=== PATIENT | female | born 1955 | race Caucasian/White ===

== ENCOUNTER 2020-07-15 17:43 | Inpatient (IN) | payer MEDICARE, SELFPAY ==
[2020-07-15] VITALS (8 sets, daily range): BP systolic 112–154; BP diastolic 68–89; PULSE 62–97; RESP 16–23; TEMP 36–36.4; O2SAT 92–100
--- NOTE | ~2020-07-15 | XR_ITS ---
EXAMINATION: XR chest 2V DATE: 07/15/2020 19:07 INDICATION: Chest pain radiating to the back and neck TECHNIQUE: PA and lateral views of the chest were obtained. COMPARISON: Chest radiograph dated 08/28/[address] dated 07/02/2019 FINDINGS: The lungs remain clear with no focal airspace opacities, pulmonary edema, pleural effusion or pneumot horax. The cardiomediastinal silhouette is normal. Mild thoracic kyphosis with mild anterior wedging of a. Mid thoracic vertebral bodies and severe thoracic spondylosis. IMPRESSION: 1. No acute cardiopulmonary disease. Reviewed, dictated and finalized at location . [facility] CLINICIAN
--- NOTE | 2020-07-15 17:49 | ECG_ITS ---
Measurements Intervals [place] Rate: 95 P: 31 MS: 182 QRS: 72 QRSD: 97 T: -5 QT: 360 QTc: 455 Interpretive Statements SINUS RHYTHM BORDERLINE T WAVE ABNORMALITY- INFERIOR [place] BASELINE ARTIFACT- I, II, III, AVR, AVL, AVF BORDERLINE ECG Electronically Signed On 07-16-2020 9:55:44 [employer] by Bib Parmar D.O.
[2020-07-15 18:10] LABS: Basophils Absolute Auto 0.1 K/mm3 (0.0-0.1); Basophils Percent Auto 0.8 % (0.2-1.2); Eosinophils Absolute Auto 0.1 K/mm3 (0-0.3); Eosinophils Percent Auto 0.8 % (0-4.4); Immature Granulocyte Absolute 0.05 K/mm3 (0.00-0.031); Immature Granulocyte Percent A 0.4 % (0-0.5); Lymphocytes Absolute Auto 2.96 K/mm3 (0.9-3.2); Lymphocytes Percent Auto 22.3 % (18.3-44.2); Mean Corpuscular HGB Conc 32.5 g/dl (32-36); Mean Corpuscular Hemoglobin 22.4 pg (26-34); Mean Platelet Volume 10.7 fl (7.4-10.4); Monocytes Absolute Auto 0.9 K/mm3 (0.1-0.6); Neutrophils Absolute Auto 9.1 K/mm3 (1.3-6.7); Neutrophils Percent Auto 68.7 % (45.5-73.1); Platelet Count Result 336 k/mm3 (150-375); Red Cell Distribution Width 14.9 % (11.5-14.5); White Blood Count 13.3 K/mm3 (4.5-10.0)
[2020-07-15 18:22] LABS: INR 0.9; Partial Thromboplastin Time 25.8 SECONDS (22.3-36.8); Prothrombin Time 12.8 Seconds (11.1-14.7)
[2020-07-15 18:24] LABS: Anion Gap 12 mmol/L (8-16); Blood Urea Nitrogen 19 mg/dL (7-17); Calcium 9.8 mg/dL (8.4-10.2); Carbon Dioxide 25 mmol/L (22-30); Chloride 101 mmol/L (98-107); Estimated CRCL calculation 72 ml/min; Estimated Glomerular Filt Rate > 60; Glucose 183 mg/dL (65-105); Potassium 3.7 mmol/L (3.4-5.0); Sodium 138 mmol/L (137-145)
[2020-07-15] MEDS: ASPIRIN 81 MG CHEWABLE TABLET 324 MG PO (18:45)
--- NOTE | 2020-07-15 18:46 | ECG_ITS ---
Measurements Intervals [place] Rate: 85 P: 12 ND: 156 QRS: 38 QRSD: 97 T: 10 QT: 356 QTc: 426 Interpretive Statements SINUS RHYTHM BORDERLINE T WAVE ABNORMALITY- INFERIOR LEADS BASELINE WANDER- V4-V5 BORDERLINE ECG Electronically Signed On 07-16-2020 9:56:21 [employer] by Bib Parmar D.O.
[2020-07-15 18:49] LABS: Troponin I 0.628 ng/mL (0.000-0.034)
--- NOTE | 2020-07-15 18:58 | ED.CHESTPAIN ---
HPI - Chest Pain General Chief Complaint: Chest Pain <Lata Solorzano PA-C - Last Filed: 07/15/20 19:08> Stated Complaint: pleurisy <Lata Solorzano PA-C - Last Filed: 07/15/20 19:08> Time Seen by Provider: 07/15/20 18:23 <Lata Solorzano PA-C - Last Filed: 07/15/20 19:08> Source: patient <MARIA DEL CARMEN Gipson Last Filed: 07/15/20 19:08> Mode of arrival: ambulatory <MARIA DEL CARMEN Gipson Last Filed: 07/15/20 19:08> Limitations: no limitations <MARIA DEL CARMEN Gipson Last Filed: 07/15/20 19:08> History of Present Illness HPI narrative: Patient presents with chief complaint of pains that move around her rib cage over the past week. Patient states that she thought she had pleurisy again because she had it over a month ago after doing lots of crying with the of her cat. She reports the pains normally last for a few minutes. She does deep breathing or takes an Aleve and it resolves. Patient states that she has fibromyalgia so she also thought she was possibly developing more pain points as the pain was around her rib cage in the front on the left and right shoulder, lower ribs, posterior aspect of her neck. Patient states she had an episode this afternoon where she was doing yard work where she began to have the pain in her right shoulder shoot across to her left shoulder, she became diaphoretic and felt momentarily short of breath. She reports that she came into the house and turned on the fan and lay down on the couch and when she was able to visit she got up and got an Aleve and laid in the bed and her symptoms resolved. Patient states that she felt better and was able to drive herself to the ER for evaluation. She states she doesn't currently have pain, SOB, or diaphoresis. <MARIA DEL CARMEN Gipson Last Filed: 07/15/20 19:08> Related Data Home Medications: Home Medications Medication Instructions Recorded Confirmed diclofenac sodium 75 mg 75 mg PO ONCE tablet 07/20/20 07/20/20 tablet,delayed release cetirizine [Zyrtec] 5 mg PO DAILY 07/15/20 diphenhydramine HCl [Benadryl] 25 mg PO HS 07/15/20 triamcinolone acetonide [Nasacort] 1 spray INTRANASAL DAILY 07/15/20 <Lata Solorzano PA-C - Last Filed: 07/15/20 19:08> Allergies/Adverse Reactions: Allergies Allergy/AdvReac Type Severity Reaction Status Date / Time haloperidol Allergy Mild EYES QUIT Verified 07/15/20 18:24 WORKING erythromycin base Allergy Unknown Unknown Verified 07/15/20 18:24 Penicillins Allergy Unknown Rash Verified 07/15/20 18:24 <Lata Solorzano PA-C - Last Filed: 07/15/20 19:08> Review of Systems Review of Systems: Narrative: CONSTITUTIONAL: Denies fever, chills, or sweats. EYES: Denies visual changes, redness, or discharge. ENT: Denies rhinorrhea, congestion, sore throat, or otalgia. CARDIOVASCULAR: Reports intermittent radiating pain around her torso Denies palpitations, or edema. RESPIRATORY: Denies cough or dyspnea. GASTROINTESTINAL: Denies abdominal pain, nausea, vomiting, or diarrhea. GENITOURINARY: Denies dysuria or hematuria. SKIN: Denies rash or itching. MUSCULOSKELETAL: Denies back pain, myalgia, or joint pain NEUROLOGIC: Denies headache, numbness, dizziness, or weakness. PSYCHIATRIC: Denies anxiety or depression. <Lata Solorzano PA-C - Last Filed: 07/15/20 19:08> [facility] Past Medical History Medical History: Medical History (Updated 03/14/20 @ 17:12 by Valeria Ortiz, MARIA DEL CARMEN) Beta thalassemia Onychomycosis <Lata Solorzano PA-C - Last Filed: 07/15/20 19:08> Family History Family History: Family History (Updated 10/09/16 @ 12:39 by DOCTOR UNKNOWN) Mother Hypertension Family history of diabetes mellitus in first degree relative Family history of malignant neoplasm of breast in first degree relative Diabetes mellitus Family history of coronary artery disease Father Family history of lung cancer <Lata Solorzano PA-C - Last Filed:
[2020-07-15] MEDS: METOPROLOL TARTRATE 50 MG TAB PO (19:54)
[2020-07-15] MEDS: NITROGLYCERIN OINTMENT 1 INCH DOSE TRANSDERM (20:05)
[2020-07-15] MEDS: ENOXAPARIN 100 MG/ML SYRINGE 85 MG SUB-Q (20:06)
--- NOTE | 2020-07-15 21:03 | ECG_ITS ---
Measurements Intervals [place] Rate: 65 P: 56 HI: 175 QRS: 44 QRSD: 89 T: 23 QT: 397 QTc: 414 Interpretive Statements SINUS RHYTHM DELAYED PRECORDIAL R/S TRANSITION LOW QRS VOLTAGE IN PRECORDIAL LEADS BORDERLINE T WAVE ABNORMALITY- ANTERIOR LEADS BORDERLINE ECG Electronically Signed On 07-16-2020 10:01:44 [employer] by Bib Parmar D.O.
--- NOTE | 2020-07-15 21:04 | PM.IMHP ---
H&P: HPI History of Present Illness Date/Time: 07/15/20 21:04 Chief complaint: elevated troponin Narrative: This is an obese 65 year old smoker who is known to have HTN, hyperlipidemia, and fibromyalgia who has been under a great deal of stress recently and presented to the hospital with a complaint of worsening chest pain today. She has been experiencing intermittent chest pain over the past week. She has been noticing that her chest pain is mostly exertional in nature and today she experienced 20 minutes of severe midsternal chest pain that started while she was doing yard work. Associated symptoms included diaphoresis. She denies any nausea, dizziness, or shortness of breath. She does relate that her chest pain did start shortly after she smoked a cigarrette today. She has no previous history of coronary artery disease and has not had her cholesterol checked in over 6 months. On my encounter with the patient tonight she seems depressed especially since her cat recently but has no significant symptoms. She denies any chest pain at this time. She also denies any fevers, cough, chills, headache, nausea, vomiting, abdominal pain, dysuria, hematuria, diarrhea, rectal bleeding, or LE swelling/pain. Initial troponin was elevated at 0.628. Initial EKG showed minimal ST segment depression in the inferior leads although second EKG was unremarkable. Cardiology, Dr. Hugo has been consulted and has asked that the patient be anticoagulated and treated with a beta zohaib. No other complaints. Review of Systems Review of Systems: All systems reviewed & are unremarkable except as noted in HPI and below PMFSH Past Medical History Medical History Beta thalassemia Onychomycosis Surgical History Surgical History (Updated 07/16/20 @ 19:18 by Suresh Rose MD) History of section, classical Family History Family History Mother Diabetes mellitus Family history of diabetes mellitus in first degree relative Family history of malignant neoplasm of breast in first degree relative Family history of coronary artery disease Hypertension Acute myocardial infarction Cerebrovascular accident Congestive heart failure Father Family history of lung cancer Social History Social History Smoking packs per day: 0.75 Smoking cigarettes per day: 15.0 Years smoked: 40 Smoking pack-years: 30.00 Smoking status: Current every day smoker Tobacco type: cigarettes Smoking end date: 08/26/08 Alcohol intake: current Drinks per week: 8 Substance use: never Substance use type: does not use Gender identity (if verbalized by the patient): Female Spiritual care concerns: No Meds Home Medications and Allergies Home Medications Medication Instructions Recorded Confirmed Type amlodipine 5 mg tablet 5 mg PO DAILY #90 tablet 12/28/19 07/15/20 Rx diclofenac sodium 75 mg 75 mg PO HS tablet 03/14/20 07/15/20 History tablet,delayed release fenofibrate 160 mg tablet 160 mg PO DAILY #90 tablet 03/21/20 07/15/20 Rx benazepril 20 mg tablet 20 mg PO DAILY #90 tablet 05/16/20 07/15/20 Rx chlorthalidone 25 mg tablet 12.5 mg PO DAILY #45 tablet 06/06/20 07/15/20 Rx budesonide-formoterol [Symbicort] 2 puff INHALATION BID 07/15/20 07/16/20 History cetirizine [Zyrtec] 10 mg PO HS 07/15/20 07/15/20 History cyclobenzaprine 10 mg PO TID PRN 07/15/20 07/15/20 History diphenhydramine HCl [Benadryl] 25 mg PO HS 07/15/20 07/15/20 History duloxetine 60 mg PO HS 07/15/20 07/15/20 History duloxetine See Rx Instructions .ROUTE .COMPLEX 07/15/20 07/15/20 History montelukast 10 mg PO HS 07/15/20 07/15/20 History simvastatin 5 mg PO HS 07/15/20 07/15/20 History trazodone 50 mg PO HS 07/15/20 07/15/20 History triamcinolone acetonide [Nasacort] 1 spray INTRANASAL DAILY 07/15/20
--- NOTE | 2020-07-15 23:39 | PC.NURSE ---
This patient, Karen Avalos, was admitted to IMU Room 201-01. Patient/family oriented to hospital policies and general routines including ID bracelet, bed and alarms, visiting hours, pain management, procedures, bathroom and other care routines, personal items, smoking policy, room service/diet, and visiting hours. Patientencouraged to report perceived risks to care and to ask questions if they do not understand what they are told or what they should do.
[2020-07-16] VITALS (17 sets, daily range): BP systolic 96–148; BP diastolic 48–67; PULSE 56–201; RESP 14–18; TEMP 36.1–37.1; O2SAT 92–96; BMI 29.9
[2020-07-16] MEDS: DULoxetine HCL 60 MG CAPSULE.DR PO ×2 (00:31→21:12)
[2020-07-16] MEDS: SIMVASTATIN 5 MG TABLET PO ×2 (00:31→21:13)
[2020-07-16] MEDS: MONTELUKAST SODIUM 10 MG TABLET PO ×2 (00:31→21:12)
[2020-07-16 00:38] LABS: Hemoglobin A1C 5.3 % (<5.7)
[2020-07-16] MEDS: NITROGLYCERIN OINTMENT 1 INCH DOSE TRANSDERM ×4 (01:55→21:13)
[2020-07-16 05:22] LABS: Basophils Absolute Auto 0.1 K/mm3 (0.0-0.1); Basophils Percent Auto 0.7 % (0.2-1.2); Eosinophils Absolute Auto 0.2 K/mm3 (0-0.3); Eosinophils Percent Auto 1.5 % (0-4.4); Hemoglobin 11.7 g/dL (12.0-15.0); Immature Granulocyte Absolute 0.03 K/mm3 (0.00-0.031); Immature Granulocyte Percent A 0.3 % (0-0.5); Lymphocytes Absolute Auto 3.12 K/mm3 (0.9-3.2); Mean Corpuscular HGB Conc 32.5 g/dl (32-36); Mean Corpuscular Hemoglobin 22.2 pg (26-34); Mean Corpuscular Volume 68.2 fl (80-100); Mean Platelet Volume 10.6 fl (7.4-10.4); Monocytes Absolute Auto 1.1 K/mm3 (0.1-0.6); Monocytes Percent Auto 11.1 % (2.6-8.5); Neutrophils Absolute Auto 5.6 K/mm3 (1.3-6.7); Neutrophils Percent Auto 55.4 % (45.5-73.1); Platelet Count Result 300 k/mm3 (150-375); Red Blood Count 5.28 M/mm3 (4.2-5.4); Red Cell Distribution Width 14.3 % (11.5-14.5); White Blood Count 10.1 K/mm3 (4.5-10.0)
[2020-07-16 05:46] LABS: Anion Gap 5 mmol/L (8-16); Blood Urea Nitrogen 21 mg/dL (7-17); Calcium 9.1 mg/dL (8.4-10.2); Carbon Dioxide 29 mmol/L (22-30); Chloride 105 mmol/L (98-107); Cholesterol 203 mg/dL (0-200); Estimated CRCL calculation 71 ml/min; Estimated Glomerular Filt Rate > 60; Glucose 104 mg/dL (65-105); HDL Direct 37 mg/dL; Magnesium 2.1 mg/dL (1.6-2.3); Potassium 3.9 mmol/L (3.4-5.0); Sodium 139 mmol/L (137-145); Triglycerides 423 mg/dL (<150)
[2020-07-16 05:57] LABS: LDL Cholesterol Direct 119 mg/dL
--- NOTE | 2020-07-16 10:18 | PM.CNCAR ---
Assessment and Plan Additional Plan 65-year-old white female with a background of hypertension dyslipidemia and smoking presents with acute coronary syndrome. She has been rendered asymptomatic with simple medical treatment. She does require a coronary angiogram and is agreeable. I of course told the patient that obviously this is not an emergency at this moment and will therefore probably occur on Saturday unless she destabilize is between now and then. I will have further recommendations obviously after she undergoes angiography. Thank you for this consultation Mookie Hugo MD [facility] History of Present Illness History of Present Illness Consult date/time: 07/16/20 10:18 Consult reason: chest pain Reason For Visit: elevated troponin Narrative: This is a 65-year-old woman without previous cardiac history that I am seeing at the request of the hospitalist presenting with a acute coronary syndrome. The patient is not previously known to have any cardiac problems but has been having intermittent episodes of chest pain for about 2 weeks. She says the symptoms have not been severe but have been mild episodes of upper substernal to interscapular back pain radiating into the shoulders that seem to occur off and on in a rather unpredictable fashion. She has not noticed this to be related to physical exertion or for other sorts of physical activity body position or meals. She does not notice any associated shortness of breath diaphoresis nausea or vomiting. She called her physician yesterday afternoon to report these symptoms and was advised to come to the emergency room to be evaluated. She came to the ED yesterday evening her electrocardiogram looks benign but her troponin level was slightly elevated in the ED and at that point I was contacted. I advised them to treat her with aspirin, beta-blockers, statin, topical nitrates and systemic anticoagulation. She was asymptomatic at that time and has remained asymptomatic after being admitted to the IMU. I in that setting she is being seen in consultation. Her troponin levels have risen moderate lead to a level of 4.7. Her electrocardiogram remains unremarkable. In this setting I am seeing the patient in consultation. I explained to the patient that there is significant evidence of an acute coronary syndrome and described the nature of coronary artery disease despite the fact that she has hypertension dyslipidemia and cigarette smoking she said she was shocked to hear this news. Because of this I recommended arranging for a coronary angiogram. Of course since she is asymptomatic and stable this will likely occur on Saturday. The patient was then asking if she can go home and take care of personal family matters and attend to the needs of her cats and returned to the hospital as an outpatient for an angiogram. I described to her the reasons that that is a bad idea. Review of Systems Constitutional: Constitutional: Reports no additional constitutional complaints Eyes: Eyes: Reports no additional eye complaints ENT: Reports system reviewed and no additional complaints, except as documented Cardiovascular: Cardiovascular: Reports as per HPI Respiratory: Respiratory: Reports no additional respiratory complaints Gastrointestinal: Gastrointestinal: Reports no additional gastrointestinal complaints Musculoskeletal: Comments: Diffuse body aches related to fibromyalgia Integumentary/Breasts: Skin/Breast: Reports system reviewed and no additional complaints, except as docu Neurologic: Reports system reviewed and no additional complaints, except as documented Psychiatric: Psychiatric: Reports depression Endocrine: Endocrine: Reports no additional endocrine complaints Hematologic/Lymphatic: Hematologic/Lymphatic: Reports no additional hematologic/lymphatic complaints [facility] Past Medical History Medical History Beta thalassemia On
[2020-07-16] MEDS: FENOFIBRATE 160 MG TABLET PO (10:24)
[2020-07-16] MEDS: ASPIRIN 81 MG ENTERIC TABLET PO (10:24)
[2020-07-16] MEDS: FLUTICASONE PROPIONATE 0.05% NA SPR 16 GM BTL (*BKC) 2 SPRAY NASAL (10:25)
[2020-07-16] MEDS: lisinopriL 20 MG TABLET PO (10:25)
[2020-07-16] MEDS: ENOXAPARIN 100 MG/ML SYRINGE 85 MG SUB-Q ×2 (10:25→21:13)
[2020-07-16] MEDS: CHLORTHALIDONE 25 MG TABLET 12.5 MG PO (10:26)
[2020-07-16] MEDS: amLODIPine BESYLATE 5 MG TABLET PO (10:26)
[2020-07-16] MEDS: LORATADINE 10 MG TABLET PO (10:27)
[2020-07-16] MEDS: METOPROLOL SUCCINATE EXT REL 50 MG TABCR PO (10:30)
--- NOTE | 2020-07-16 14:03 | PM.IMPN ---
Progress Note: A&P Assessment and Plan (1) Elevated troponin: Code(s): R77.8 - Other specified abnormalities of plasma proteins Status: Acute Assessment and Plan: Stable Cardiology consulted Appreciate Cardiology note. (2) Chest pain: Qualifiers: Chest pain type: unspecified Qualified Code(s): R07.9 - Chest pain, unspecified Code(s): R07.9 - Chest pain, unspecified Status: Acute Assessment and Plan: Resolved. (3) Beta thalassemia: Code(s): D56.1 - Beta thalassemia Status: Acute Assessment and Plan: Stable continue to monitor. (4) Chronic obstructive pulmonary disease: Code(s): J44.9 - Chronic obstructive pulmonary disease, unspecified Status: Acute Assessment and Plan: Stable continue home meds. (5) Essential hypertension: Code(s): I10 - Essential (primary) hypertension Status: Chronic Assessment and Plan: Stable Continue home meds (6) Fibromyalgia: Code(s): M79.7 - Fibromyalgia Status: Chronic Assessment and Plan: Continue home meds Stable. (7) Major depression, recurrent, chronic: Code(s): F33.9 - Major depressive disorder, recurrent, unspecified Status: Acute Assessment and Plan: Stable continue home meds Continue to monitor (8) Tobacco dependence: Code(s): F17.200 - Nicotine dependence, unspecified, uncomplicated Status: Acute Assessment and Plan: Nicotine patch Subjective Date/time seen: 07/16/20 14:03 I feel fine. Review of Systems Review of Systems: Narrative: chest pain with activity. Constitutional: Comments: no fevers, no chills, no rigors. Eyes: Comments: no vision changes. ENT: Comments: no ear pain, no throat pain, no nasal discharge or congestion. Cardiovascular: Comments: chest pain with activity. Respiratory: Comments: no sob, no cough, no sputum production Gastrointestinal: Comments: no n/v/abdominal pain. Musculoskeletal: Comments: pain on back, shoulders and bony prominences mainly trunk. Integumentary/Breasts: Comments: no rashes. Neurologic: Comments: no sensory motor deficit. Hematologic/Lymphatic: Comments: no LAP. Exam Narrative: Exam Narrative: Lying in bed. Const: General: cooperative, comfortable and well developed Nutritional Appearance: average body habitus Orientation/consciousness: patient oriented x3 Limitations: no limitations HENMT: Head: normal to inspection and normocephalic Ears: hearing grossly normal bilaterally General nose exam: Normal external nose present Eyes: General: appearance normal, both eyes and all related structures Pupils: Equal, round and reactive pupils present EOM: EOMs intact bilaterally Neck: Neck: full ROM, no lymphadenopathy and supple Resp: Effort & Inspection: normal respiratory effort Auscultation: clear to auscultation bilaterally Cardio: Jugular venous distension: no JVD Rate: regular rate Rhythm: regular rhythm GI: Inspection: normal to inspection GI Palp: Yes Soft to palpation and Yes No hepatosplenomegaly present Skin: General skin exam: normal color Wounds: no wounds Neuro: General: patient oriented x3 Cranial nerves: Yes CN's II-XII intact bilaterally and Yes Bilaterally intact EOM present Cognition (Neuro): normal cognition Speech: normal speech Gait exam (Neuro): Normal gait present Motor exam (neuro): 5/5 motor strength present throughout Sensory Exam: normal sensation Objective Data Vital Signs Vital Signs: Vital Signs - 24 hr 07/15/20 17:46 07/15/20 18:22 07/15/20 18:25 Temperature 97.6 F Pulse Rate 94 95 93 Respiratory Rate 16 23 H Blood Pressure 153/70 H 154/89 H Pulse Oximetry 98 98 07/15/20 22:02 07/15/20 22:19 07/15/20 22:21 Temperature 96.9 F L Pulse Rate 62 64 63 Respiratory Rate 16 16 Blood Pressure 124/72 Pulse Oximetry 98 92 07/15/20 22:23 07/15/20 23:41 07/16/20 00:00 Tem
[2020-07-16] MEDS: ACETAMINOPHEN 325 MG TABLET 650 MG PO (17:10)
[2020-07-16] MEDS: DICLOFENAC SOD 75 MG TABLET.EC PO (21:12)
[2020-07-17] VITALS (16 sets, daily range): BP systolic 108–126; BP diastolic 63–76; PULSE 59–90; RESP 16–20; TEMP 36.4–37.1; O2SAT 95–98
[2020-07-17] MEDS: NITROGLYCERIN OINTMENT 1 INCH DOSE TRANSDERM ×4 (01:59→20:17)
--- NOTE | 2020-07-17 03:00 | PC.NURSE ---
Pt called RN at approximately 0250 this morning stating she had chest pain after getting up to bathroom. Pain only lasted a minute or two, upper chest 7/10 with no radiation and brief shortness of breath. Pain resolved with rest and no other intervention. Vitals stable. Will continue to monitor.
[2020-07-17] MEDS: METOPROLOL SUCCINATE EXT REL 50 MG TABCR PO (08:56)
[2020-07-17] MEDS: FLUTICASONE PROPIONATE 0.05% NA SPR 16 GM BTL (*BKC) 2 SPRAY NASAL (08:58)
[2020-07-17] MEDS: FENOFIBRATE 160 MG TABLET PO (08:59)
[2020-07-17] MEDS: CHLORTHALIDONE 25 MG TABLET 12.5 MG PO (08:59)
[2020-07-17] MEDS: ENOXAPARIN 100 MG/ML SYRINGE 85 MG SUB-Q ×2 (08:59→20:20)
[2020-07-17] MEDS: ASPIRIN 81 MG ENTERIC TABLET PO (09:00)
[2020-07-17] MEDS: amLODIPine BESYLATE 5 MG TABLET PO (09:00)
--- NOTE | 2020-07-17 10:17 | PM.PNCARD ---
Progress Note: A&P Additional Plan 65-year-old female with: Intermittent chest pain syndrome for 1-2 weeks prior to coming in the hospital, modest troponin rise resulting in the recommendation to proceed with angiogram. She was been stabilized with aspirin, anticoagulation, beta-blockers topical nitrates and statin. Will plan to proceed with coronary angiography tomorrow morning. Further recommendations will be forthcoming after those results are reviewed Mookie Hugo MD [facility] Subjective Date/time seen: Date of service: 07/17/20 10:17 Interval history: Follow-up visit in this 65-year-old woman with apparent diagnosis of acute coronary syndrome and risk factors of hypertension dyslipidemia and smoking. Feels well this morning did have an episode of mild chest pain last night when she was up to the bathroom Discussed again need for proceeding with coronary angiography tomorrow morning she understands the procedure and is agreeable Exam Const: General: comfortable and no acute distress Other: Overweight 65-year-old female a comfortable cooperative in no distress HENMT: Mouth: Yes moist mucous membranes Eyes: Sclera: sclerae normal Pupils: Equal, round and reactive pupils present Neck: Neck: supple and no JVD Thyroid: thyroid normal Other: Carotid pulses are intact bilaterally and are without any bruits Resp: Effort & Inspection: normal respiratory effort Auscultation: clear to auscultation bilaterally Cardio: Rate: regular rate Rhythm: regular rhythm Other: No murmur no gallop no rub GI: GI Palp: Yes Soft to palpation Auscultation: normal bowel sounds Skin: General skin exam: normal color Neuro: Cognition (Neuro): normal cognition Extrem: General: normal to inspection Objective Data Vital Signs Vital Signs: Vital Signs - 24 hr 07/16/20 10:30 07/16/20 12:00 07/16/20 14:00 Temperature 36.9 C Pulse Rate 201 H 86 89 Respiratory Rate 18 Blood Pressure 148/48 H Pulse Oximetry 94 07/16/20 16:00 07/16/20 18:00 07/16/20 19:55 Temperature 36.2 C L 37.1 C Pulse Rate 79 89 56 L Respiratory Rate 18 18 Blood Pressure 114/51 L 96/54 L Pulse Oximetry 96 96 07/16/20 20:00 07/16/20 22:00 07/16/20 23:40 Temperature 36.3 C L Pulse Rate 83 59 L 60 Respiratory Rate 18 Blood Pressure 104/55 L Pulse Oximetry 92 07/17/20 00:00 07/17/20 02:00 07/17/20 02:50 Temperature 36.4 C Pulse Rate 62 70 64 Respiratory Rate 16 Blood Pressure 123/66 Pulse Oximetry 98 07/17/20 04:00 07/17/20 06:00 07/17/20 08:00 Temperature 36.8 C 36.9 C Pulse Rate 59 L 59 L 75 Respiratory Rate 16 18 Blood Pressure 108/63 126/76 Pulse Oximetry 97 98 07/17/20 08:56 07/17/20 10:17 Temperature Pulse Rate 84 Respiratory Rate Blood Pressure Pulse Oximetry 96 Intake/Output Intake/Output: Intake & Output 07/14/20 07/15/20 07/16/20 07/17/20 23:59 23:59 23:59 23:59 Intake Total 480 600 Output Total 1000 750 Balance -520 -150 Meds/Results Medications: Active Medications Generic Name Dose Route Start Last Admin Trade Name Freq PRN Reason Stop Dose Admin Acetaminophen 650 mg 07/15/20 21:19 07/16/20 17:10 Acetaminophen 325 Mg Tablet PO 650 mg Q4H PRN Administration Mild Pain (1-3) or Fever Amlodipine Besylate 5 mg 07/16/20 09:00 07/17/20 09:00 Amlodipine Besylate 5 Mg Tablet PO 5 mg DAILY VIKI Administration Aspirin 81 mg 07/16/20 09:00 07/17/20 09:00 Aspirin 81 Mg Enteric Tablet PO 81 mg QAM VIKI Administration Budesonide/Formoterol Fumarate 2 puff 07/16/20 08:00 07/17/20 10:16 Budesonide/Form 160-4.5 Mcg (*Sp) INHALATION 2 puff Q12HRT VIKI Administration Chlorthalidone 12.5 mg 07/16/20 09:00 07/17/20 08:59 Chlorthalidone 25 Mg Tablet PO 12.5 mg DAILY VIKI Administration Cyclobenzaprine HCl 10 mg 07/15/20 23:19 Cyclobenzaprine Hcl 10 Mg Tablet PO TID PRN Muscle Pain Diclofena
[2020-07-17] MEDS: lisinopriL 20 MG TABLET PO (11:20)
[2020-07-17] MEDS: DULoxetine HCL 30 MG CAPSULE.DR PO (12:36)
--- NOTE | 2020-07-17 12:57 | PM.IMPN ---
Progress Note: A&P Assessment and Plan (1) Tobacco dependence: Code(s): F17.200 - Nicotine dependence, unspecified, uncomplicated Status: Acute Assessment and Plan: Nicotine patch on. Continue to monitor (2) Elevated troponin: Code(s): R77.8 - Other specified abnormalities of plasma proteins Status: Acute Assessment and Plan: Going for Left heart cath in am. Telemonitoring. Supportive care Cardiology on board, note appreciated. (3) Chest pain: Qualifiers: Chest pain type: unspecified Qualified Code(s): R07.9 - Chest pain, unspecified Code(s): R07.9 - Chest pain, unspecified Status: Acute Assessment and Plan: Mainly with activity Nitro patch on Continue to monitor. (4) Beta thalassemia: Code(s): D56.1 - Beta thalassemia Status: Acute Assessment and Plan: Stable Continue to monitor (5) Chronic obstructive pulmonary disease: Code(s): J44.9 - Chronic obstructive pulmonary disease, unspecified Status: Acute Assessment and Plan: Stable Continue to monitor Continue home meds (6) Essential hypertension: Code(s): I10 - Essential (primary) hypertension Status: Chronic Assessment and Plan: Stable Continue home meds Continue to monitor (7) Fibromyalgia: Code(s): M79.7 - Fibromyalgia Status: Chronic Assessment and Plan: Continue home meds (8) Major depression, recurrent, chronic: Code(s): F33.9 - Major depressive disorder, recurrent, unspecified Status: Acute Assessment and Plan: Stable Continue home meds. Subjective Date/time seen: 07/17/20 12:57 States that feels well at this time but had an episode of chest pain last night. Review of Systems Review of Systems: Narrative: Had chest pain last night when up to the bathroom. Constitutional: Comments: no fevers, no rigors, no chills. Eyes: Comments: no vision changes. ENT: Comments: no ear ache, no throat pain, no nasal discharge or congestion. Cardiovascular: Comments: chest pain with activity. Respiratory: Comments: no sob, no cough, no sputum production. Gastrointestinal: Comments: no n/v/abdominal pain. Genitourinary: Comments: no pain or burning with urination. Musculoskeletal: Comments: muscle pain on bony protuberance mostly on the trunk, back and shoulders. Integumentary/Breasts: Comments: no rashes. Neurologic: Comments: no sensory motor deficit. Hematologic/Lymphatic: Comments: no LAP. Exam Narrative: Exam Narrative: Sitting in bed. Const: General: cooperative, healthy appearing, comfortable, well developed, alert and awake Nutritional Appearance: average body habitus HENMT: Head: normal to inspection and normocephalic Face and sinus: normal facial exam Eyes: General: appearance normal, both eyes and all related structures Pupils: Equal, round and reactive pupils present EOM: EOMs intact bilaterally Neck: Neck: full ROM, no lymphadenopathy and supple Resp: Effort & Inspection: normal respiratory effort Auscultation: clear to auscultation bilaterally Cardio: Jugular venous distension: no JVD Rate: regular rate Rhythm: regular rhythm GI: Inspection: normal to inspection GI Palp: Yes Soft to palpation and Yes No hepatosplenomegaly present Auscultation: normal bowel sounds Skin: General skin exam: normal color Lesions: no lesions Rashes: no rashes Wounds: no wounds Neuro: General: patient oriented x3 Cranial nerves: Yes CN's II-XII intact bilaterally Extrem: General: no joint enlargement and no pedal edema Objective Data Vital Signs Vital Signs: Vital Signs - 24 hr 07/16/20 14:00 07/16/20 16:00 07/16/20 18:00 Temperature 97.2 F L Pulse Rate 89 79 89 Respiratory Rate 18 Blood Pressure 114/51 L Pulse Oximetry 96 07/16/20 19:55 07/16/20 20:00 07/16/20 22:00 Temperature 98.7 F Pulse Rate 56 L 83 59 L Respiratory Rate 18 B
[2020-07-17] MEDS: LORATADINE 10 MG TABLET PO (20:18)
[2020-07-17] MEDS: MONTELUKAST SODIUM 10 MG TABLET PO (20:18)
[2020-07-17] MEDS: SIMVASTATIN 5 MG TABLET PO (20:19)
[2020-07-17] MEDS: DICLOFENAC SOD 75 MG TABLET.EC PO (20:19)
[2020-07-17] MEDS: DULoxetine HCL 60 MG CAPSULE.DR PO (20:20)
[2020-07-17] MEDS: traZODone HCL 50 MG TABLET PO (23:39)
[2020-07-18] VITALS (38 sets, daily range): BP systolic 116–159; BP diastolic 45–95; PULSE 59–103; RESP 12–25; TEMP 36.1–36.9; O2SAT 94–99
[2020-07-18] MEDS: NITROGLYCERIN OINTMENT 1 INCH DOSE TRANSDERM (02:56)
--- NOTE | 2020-07-18 07:25 | WPDMODSED ---
Moderate Sedation Note-Pt Data Patient Data Diagnosis: acute coronary syndrome hypertension dyslipidemia tobacco abuse Present Complaint: intermittent ischemic chest pain both with without exertion Procedure to be performed/Plan: left heart catheterization, possible PCI Allergies Allergy/AdvReac Type Severity Reaction Status Date / Time haloperidol Allergy Mild EYES QUIT Verified 07/15/20 22:22 WORKING erythromycin base Allergy Unknown Unknown Verified 07/15/20 22:22 Penicillins Allergy Unknown Rash Verified 07/15/20 22:22 Home Medications Medication Instructions Recorded Confirmed Type amlodipine 5 mg tablet 5 mg PO DAILY #90 tablet 12/28/19 07/15/20 Rx diclofenac sodium 75 mg 75 mg PO HS tablet 03/14/20 07/15/20 History tablet,delayed release fenofibrate 160 mg tablet 160 mg PO DAILY #90 tablet 03/21/20 07/15/20 Rx benazepril 20 mg tablet 20 mg PO DAILY #90 tablet 05/16/20 07/15/20 Rx chlorthalidone 25 mg tablet 12.5 mg PO DAILY #45 tablet 06/06/20 07/15/20 Rx budesonide-formoterol [Symbicort] 2 puff INHALATION BID 07/15/20 07/16/20 History cetirizine [Zyrtec] 10 mg PO HS 07/15/20 07/15/20 History cyclobenzaprine 10 mg PO TID PRN 07/15/20 07/15/20 History diphenhydramine HCl [Benadryl] 25 mg PO HS 07/15/20 07/15/20 History duloxetine 60 mg PO HS 07/15/20 07/15/20 History duloxetine See Rx Instructions .ROUTE .COMPLEX 07/15/20 07/15/20 History montelukast 10 mg PO HS 07/15/20 07/15/20 History simvastatin 5 mg PO HS 07/15/20 07/15/20 History trazodone 50 mg PO HS 07/15/20 07/15/20 History triamcinolone acetonide [Nasacort] 1 spray INTRANASAL DAILY 07/15/20 07/15/20 History Current Medications: Active Medications Acetaminophen (Acetaminophen 325 Mg Tablet) 650 mg PO Q4H PRN PRN Reason: Mild Pain (1-3) or Fever Last Admin: 07/16/20 17:10 Dose: 650 mg Documented by: Amlodipine Besylate (Amlodipine Besylate 5 Mg Tablet) 5 mg PO DAILY [facility] Last Admin: 07/17/20 09:00 Dose: 5 mg Documented by: Aspirin (Aspirin 81 Mg Enteric Tablet) [facility] [place] Admin: 07/17/20 09:00 Dose: 81 mg Documented by: Budesonide/Formoterol Fumarate (Budesonide/Form 160-4.5 Mcg (*Sp)) 2 puff INHALATION Q12HRT [facility] Last Admin: 07/17/20 20:52 Dose: 2 puff Documented by: Chlorthalidone (Chlorthalidone 25 Mg Tablet) 12.5 mg PO DAILY [facility] Last Admin: 07/17/20 08:59 Dose: 12.5 mg Documented by: Cyclobenzaprine HCl (Cyclobenzaprine Hcl 10 Mg Tablet) 10 mg PO TID PRN PRN Reason: Muscle Pain Diclofenac Sodium (Diclofenac Sod 75 Mg Tablet.Ec) 75 mg PO [facility] Last Admin: 07/17/20 20:19 Dose: 75 mg Documented by: Diphenhydramine HCl (Diphenhydramine Hcl Cap 25 Mg Capsule) 25 mg PO [facility] Last Admin: 07/17/20 20:19 Dose: Not Given Documented by: Duloxetine HCl (Duloxetine Hcl 60 Mg Capsule.Dr) 60 mg PO [facility] Last Admin: 07/17/20 20:20 Dose: 60 mg Documented by: Duloxetine HCl (Duloxetine Hcl 30 Mg Capsule.Dr) 30 mg PO [facility] Last Admin: 07/17/20 12:36 Dose: 30 mg Documented by: Enoxaparin Sodium (Enoxaparin 100 Mg/Ml Syringe) 85 mg SUB-Q Q12HR [facility] Last Admin: 07/17/20 20:20 Dose: 85 mg Documented by: Fenofibrate (Fenofibrate 160 Mg Tablet) 160 mg PO DAILY [facility] Last Admin: 07/17/20 08:59 Dose: 160 mg Documented by: Fluticasone Propionate (Fluticasone Propionate 0.05% Na Spr 16 Gm Btl (*Bkc)) 2 spray NASAL [facility] Last Admin: 07/17/20 08:58 Dose: 2 spray Documented by: Lisinopril (Lisinopril 20 Mg Tablet) 20 mg PO [facility] Last Admin: 07/17/20 11:20 Dose: 20 mg Documented by: Loratadine (Loratadine 10 Mg Tablet) 10 mg PO [facility] Last Admin: 07/17/20 20:18 Dose: 10 mg Documented by: Metoprolol Succinate (Metoprolol Succinate Ext Rel 50 Mg Tabcr) 50 mg PO [facility] Last Admin: 07/17/20 08:56 Dose: 50 mg Documented by: Montelukast Sodium (Montelukast Sodium 10 Mg Tablet) 10 mg PO [facility] Last Admin: 07/17/20 20:18 Dose: 10 mg Documented by: Nicotine (Nicotine (*Pbkc) 21 Mg Pat
--- NOTE | 2020-07-18 07:30 | PC.NURSE ---
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
--- NOTE | 2020-07-18 08:10 | ECG_ITS ---
Measurements Intervals [place] Rate: 59 P: 67 LA: 170 QRS: 56 QRSD: 101 T: -10 QT: 418 QTc: 416 Interpretive Statements SINUS BRADYCARDIA BORDERLINE T WAVE ABNORMALITY- INFERIOR LEADS BORDERLINE ECG Electronically Signed On 07-18-2020 9:15:49 DIESEL INSTRUCTOR by Bib Parmar D.O.
--- NOTE | 2020-07-18 08:15 | WPDCARDPROC ---
Cardiac Cath Procedure Note Date of procedure:: 07/18/20 Performing physician:: Mookie Hugo MD Indication:: unstable angina Brief clinical history:: this is a 65-year-old woman with a history of hypertension smoking and dyslipidemia who entered the hospital with weekend with intermittent ischemic type chest pain and a small rise in her troponin. In the setting an angiogram has been recommended. Procedure Procedure performed:: Coronary angiography left ventriculography drug-eluting stent to RPL Sedation/Medication given:: fentanyl 50 mg Versed 2 mg case start 733 a.m. case end time 808 sedation provided by Margie Minor RN, trained observer Access site:: right femoral artery Estimated blood loss:: 20-30 cc Procedure note:: patient was brought to the cardiac catheterization lab in the postabsorptive state where the right femoral triangle was prepared and draped usual fashion. Anesthesia was provided with 1% lidocaine infiltrated locally. Using modified Seldinger technique a 5 Syrian sheath was placed into the right femoral artery. Left heart catheterization was then carried out I utilized a 6 Syrian JR4 catheter to inject the right coronary artery and a 6 Syrian FL 3.5 catheter to inject the left coronary artery. The left ventricle was studied and injected using a 5 Syrian angled pigtail catheter. Following this the cineangiograms were reviewed and PCI of the RPL branch of the RCA was recommended and carried out as detailed below. Prior to PCI the patient had the 5 Syrian sheath changed over guidewire for a 6 Syrian and she was systemically anticoagulated with Angiomax. She also received aspirin and 180 mg of Brilinta p.o. prior to the intervention. Following the PCI the sheath was sutured into position the patient was taken to the holding area in stable condition there was no sign of any groin hematoma and no procedural complications were evident. Findings:: Hemodynamics: Central aortic pressure was 143/63 left ventricle 140/0 end-diastolic of 12 there is no systolic gradient on pullback across the aortic valve. Left ventricle: The LV is of normal size all segments contract appropriately the global ejection fraction is visually estimated to be 50-55%. The left main coronary artery is widely patent the LAD is a medium caliber artery extending down to around the apex the LAD and its branches are angiographically free of disease. Circumflex is a small to medium caliber vessel giving rise to the marginal branches and angiographically is free of disease. Right coronary artery is a large caliber vessel dominant to the posterior circulation. The majority of the RCA is angiographically normal there is however a high-grade 95% lesion in the large RPL branch which appears to be the culprit for her symptoms. The lesion does appear to be hazy with some associated thrombus. Intervention: The right coronary was engaged using a 6 Syrian WRP guiding catheter. The artery was wired easily with 0.014 BMW coronary guidewire. The lesion was pre-dilated using a 2.5 x 15 mm emerge PTCA balloon. I then deployed a 3 x 15 mm Orsiro drug-eluting stent with a very good angiographic result at the target lesion there was a visible step-up step-down in the stented area the casing very good strut deployment. There was a filling defect noted in 1 of the distal RPL branches following the PCI which indicates a small piece of thrombus that did embolize distally. There was still SARAHY 3 flow in the entire RPL system however this did not appear to limit flow. This reason the patient will be given an additional bag of Angiomax prior to sheath removal. Conclusion:: 1. Single-vessel coronary artery disease with a high-grade 95-99% stenosis in the large caliber RPL branch of the right coronary artery. 2. Normal left ventricular systolic function 3. successful PCI using the 3.5 x 15 mm Orsiro stent with no residual stenosis or di
--- NOTE | 2020-07-18 08:25 | SUR.PHASEII ---
BEGIN PHASE II RECOVERY. RETURNS TO WIRE INSULATOR 3 S/P LHC W/ PCI TO RCA. AWAKE AND ALERT X 3, DENIES PAIN OR SOB. 6FR SHEATH INTACT R. FEM ARTERY COVERED W/ GUAZE AND TEGADERM DRESSING. NO ACTIVE BLEEDING OR HEMATOMA NOTED. OLD SCANT BLOODY DRAINAGE NOTED IN R. GROIN CREASE. PUNCTURE SITE AREA SOFT, NONTENDER. R. PEDAL PULSE PALP STRONG. ANGIOMAX GTT CONTINUES AT 29.4ML/HR VIA PUMP. IVF'S CONTINUE ORDERED. REVIEWED BEDREST ACTIVITY RESTRICTIONS W/ PT. VOICED UNDERSTANDING. VSS. WILL CONTINUE TO MONITOR.
--- NOTE | 2020-07-18 09:05 | SUR.PHASEII ---
2ND BAG OF ANGIOMAX HUNG ORDERED VIA PUMP AT 29.4ML/HR. NO NEW CHANGES. WILL CONTINUE TO MONITOR.
--- NOTE | 2020-07-18 10:57 | SUR.PHASEII ---
2ND BAG OF ANGIOMAX COMPLETE AT THIS TIME, 1057. NO NEW CHANGES NOTED OTHERWISE. VSS. SHEATH MAY BE PULLED AFTER 1257. PT. UPDATED ON PLAN AND REVIEWED BEDREST ACTIVITY RESTRICTIONS. VOICED UNDERSTANDING.
[2020-07-18] MEDS: SODIUM CHLORIDE 0.9% IV 1,000 ML 125 ML IV CONT (12:00)
--- NOTE | 2020-07-18 12:54 | PM.IMPN ---
Progress Note: A&P Assessment and Plan (1) Tobacco dependence: Code(s): F17.200 - Nicotine dependence, unspecified, uncomplicated Status: Acute Assessment and Plan: Nicotine patch on. (2) Elevated troponin: Code(s): R77.8 - Other specified abnormalities of plasma proteins Status: Acute Assessment and Plan: S/p L heart cath. Doing well Follow Cardiology recs. (3) Chronic obstructive pulmonary disease: Code(s): J44.9 - Chronic obstructive pulmonary disease, unspecified Status: Acute Assessment and Plan: Stable Continue home meds (4) NSTEMI (non-ST elevated myocardial infarction): Code(s): I21.4 - Non-ST elevation (NSTEMI) myocardial infarction Status: Acute Assessment and Plan: S/p R heart cath. Subjective Date/time seen: 07/18/20 12:54 I feel fine. Review of Systems Review of Systems: Narrative: No complains, s/p L heart cath. Musculoskeletal: Comments: R groin access. Exam Narrative: Exam Narrative: lying in bed. Const: General: cooperative, healthy appearing and comfortable Nutritional Appearance: average body habitus Orientation/consciousness: patient oriented x3 HENMT: Head: normal to inspection and normocephalic Ears: hearing grossly normal bilaterally General nose exam: Normal external nose present Face and sinus: normal facial exam Eyes: General: appearance normal, both eyes and all related structures Pupils: Equal, round and reactive pupils present EOM: EOMs intact bilaterally Neck: Neck: normal visual inspection, no lymphadenopathy, supple and no JVD Lymphatic: no lymphadenopathy noted Resp: Effort & Inspection: normal respiratory effort and able to speak in complete sentences Auscultation: clear to auscultation bilaterally Cardio: Rate: regular rate Rhythm: regular rhythm GI: Inspection: normal to inspection GI Palp: Yes Soft to palpation and Yes No hepatosplenomegaly present Skin: General skin exam: normal color Lesions: no lesions Rashes: no rashes Wounds: no wounds (R groin cath access.) Neuro: General: patient oriented x3 Cranial nerves: Yes CN's II-XII intact bilaterally Cognition (Neuro): normal cognition Speech: normal speech Gait exam (Neuro): Normal gait present Motor exam (neuro): 5/5 motor strength present throughout Sensory Exam: normal sensation Extrem: General: full ROM and no pedal edema Objective Data Vital Signs Vital Signs: Vital Signs - 24 hr 07/17/20 14:00 07/17/20 16:00 07/17/20 18:00 Temperature 98.4 F Pulse Rate 74 77 77 Respiratory Rate 18 Blood Pressure 116/72 Pulse Oximetry 95 07/17/20 20:00 07/17/20 20:02 07/17/20 22:00 Temperature 97.7 F Pulse Rate 69 78 90 Respiratory Rate 18 20 Blood Pressure 120/63 Pulse Oximetry 97 98 07/18/20 00:00 07/18/20 02:00 07/18/20 04:00 Temperature 97.3 F L 96.9 F L Pulse Rate 76 71 67 Respiratory Rate 16 16 Blood Pressure 123/63 119/66 Pulse Oximetry 98 97 07/18/20 06:00 07/18/20 07:04 07/18/20 08:30 Temperature 97.1 F L 98.5 F Pulse Rate 69 78 70 Respiratory Rate 16 16 Blood Pressure 145/60 H 131/74 Pulse Oximetry 98 96 07/18/20 08:45 07/18/20 09:00 07/18/20 09:15 Temperature Pulse Rate 63 59 L 59 L Respiratory Rate 16 16 16 Blood Pressure 127/75 128/90 132/71 Pulse Oximetry 94 96 98 07/18/20 09:45 07/18/20 10:15 07/18/20 11:15 Temperature Pulse Rate 66 60 62 Respiratory Rate 16 16 16 Blood Pressure 137/66 132/70 126/87 Pulse Oximetry 97 96 96 Intake/Output Intake/Output: Intake & Output 07/15/20 07/16/20 07/17/20 07/18/20 23:59 23:59 23:59 23:59 Intake Total 480 1510 Output Total 1000 1350 600 Balance -520 160 -600 Meds/Results Medications: Active Medications Generic Name Dose Route Start Last Admin Trade Name Freq PRN Reason Stop Dose Admin Acetaminophen 650 mg 07/15/20 21:19 07/16/20 17:10 Acetaminophen 325 Mg Tablet PO 650 mg
--- NOTE | 2020-07-18 13:23 | SUR.PHASEII ---
MANUAL 6FR SHEATH PULL R. FEM ARTERY PUNCTURE SITE BY SALLY Moreira RN PER PROTOCOL AT THIS TIME. WILL HOLD FIRM, STEADY PRESSURE TO SITE UNTIL HEMOSTASIS ACHIEVED. TOLERATED WELL. WILL CONTINUE TO MONITOR. VSS.
--- NOTE | 2020-07-18 14:03 | SUR.PHASEII ---
HEMOSTASIS ACHIEVED AFTER 40 MINUTES MANUAL PRESSURE HOLD TO R. FEMORAL ARTERY PUNCTURE SITE. DURING INITIAL MANUAL HOLD, SMALL HEMATOMA NOTED MEDIALLY TO PUNCTURE SITE, PRESSED OUT BY CASTRO MOISE RN. AFTER INITIAL 30 MINUTE MANUAL HOLD, SMALL HEMATOMA NOTED LATERALLY TO PUNCTURE SITE; PRESSED OUT BY CASTRO MOISE RN. AREA SOFT, WITHOUT SWELLING OR RIDGES AFTER TOTAL 40 MINUTE PRESSURE HOLD. MILD BRUISING NOTED WHERE SOFT, SMALL HEMATOMAS WERE. PUNCTURE SITE DRESSED W/ STAT SEAL AND TEGADERM DRESSING. EDGES OF BRUISING MARKED. TOLERATED PRESSURE HOLD WELL. VSS. REVIEWED BEDREST ACTIVITY RESTRICTIONS AND 6 HOURS BEDREST W/ PT. VOICED UNDERSTANDING. WILL CONTINUE TO MONITOR CLOSELY.
--- NOTE | 2020-07-18 15:00 | SUR.PHASEII ---
REPORT CALLED TO REAGAN GARCIA IN IMU. PT. TO RETURN TO 201 VIA BED ON TELE MONITOR.
--- NOTE | 2020-07-18 15:20 | SUR.PHASEII ---
END PHASE II RECOVERY. PT. RETURNS TO IMU 201 VIA BED ON TELE MONITOR. IVF'S RUNNING ORDERED. ASSESSED Peter DOBBINS SITE WITH REAGAN GARCIA AND VICTORIA GARCIA. NO NEW CHANGES NOTED.
--- NOTE | 2020-07-18 15:35 | PC.NURSE ---
Patient returned from Senior Qa Tester, site intact and visualized. Report received from JOSE Wild.
[2020-07-18] MEDS: FENOFIBRATE 160 MG TABLET PO (17:06)
[2020-07-18] MEDS: METOPROLOL SUCCINATE EXT REL 50 MG TABCR PO (17:06)
[2020-07-18] MEDS: lisinopriL 20 MG TABLET PO (17:07)
[2020-07-18] MEDS: amLODIPine BESYLATE 5 MG TABLET PO (17:09)
[2020-07-18] MEDS: FLUTICASONE PROPIONATE 0.05% NA SPR 16 GM BTL (*BKC) 2 SPRAY NASAL (17:09)
[2020-07-18] MEDS: CHLORTHALIDONE 25 MG TABLET 12.5 MG PO (17:09)
[2020-07-18] MEDS: NICOTINE (*PBKC) 21 MG PATCH 1 PATCH TRANSDERM (17:09)
[2020-07-18] MEDS: ROSUVASTATIN 10 MG TABLET PO (17:10)
[2020-07-18] MEDS: TICAGRELOR 90 MG TABLET PO (20:29)
[2020-07-18] MEDS: DICLOFENAC SOD 75 MG TABLET.EC PO (20:29)
[2020-07-18] MEDS: traZODone HCL 50 MG TABLET PO (20:29)
[2020-07-18] MEDS: diphenhydrAMINE HCl CAP 25 MG CAPSULE PO (20:29)
[2020-07-18] MEDS: MONTELUKAST SODIUM 10 MG TABLET PO (20:29)
[2020-07-18] MEDS: LORATADINE 10 MG TABLET PO (20:29)
[2020-07-18] MEDS: DULoxetine HCL 60 MG CAPSULE.DR PO (20:29)
[2020-07-19] VITALS (9 sets, daily range): BP systolic 113–127; BP diastolic 45–78; PULSE 63–89; RESP 14–20; TEMP 36.4–36.8; O2SAT 96–99
--- NOTE | 2020-07-19 05:11 | ECG_ITS ---
Measurements Intervals [place] Rate: 76 P: 44 OR: 173 QRS: 51 QRSD: 101 T: -14 QT: 380 QTc: 429 Interpretive Statements SINUS RHYTHM BORDERLINE T WAVE ABNORMALITY- INFERIOR LEADS BORDERLINE ECG Electronically Signed On 07-19-2020 13:29:47 INVESTIGATIONS CHIEF by Bib Parmar D.O.
[2020-07-19] MEDS: FENOFIBRATE 160 MG TABLET PO (09:24)
[2020-07-19] MEDS: FLUTICASONE PROPIONATE 0.05% NA SPR 16 GM BTL (*BKC) 2 SPRAY NASAL (09:24)
[2020-07-19] MEDS: amLODIPine BESYLATE 5 MG TABLET PO (09:26)
[2020-07-19] MEDS: ASPIRIN 81 MG CHEWABLE TABLET PO (09:26)
[2020-07-19] MEDS: CHLORTHALIDONE 25 MG TABLET 12.5 MG PO (09:28)
[2020-07-19] MEDS: DULoxetine HCL 30 MG CAPSULE.DR PO (09:30)
[2020-07-19] MEDS: lisinopriL 20 MG TABLET PO (09:30)
[2020-07-19] MEDS: METOPROLOL SUCCINATE EXT REL 50 MG TABCR PO (09:31)
[2020-07-19] MEDS: TICAGRELOR 90 MG TABLET PO (09:31)
[2020-07-19] MEDS: ROSUVASTATIN 10 MG TABLET PO (09:31)
[2020-07-19] MEDS: NICOTINE (*PBKC) 21 MG PATCH 1 PATCH TRANSDERM (09:32)
--- NOTE | 2020-07-19 10:00 | PC.NURSE ---
RECEIVED TO PYTHON DEVELOPER 3 IMU OVERFLOW TRANSFER FROM IMU 201. REPORT HAS BEEN RECEIVED FROM JOHN GARCIA. A&OX4 ON ARRIVAL. STEADY GAIT. UP IN ROOM. DENIES CP OR SOB. MONITOR SR. R. GROIN W/ DIFFUSE BRUISING ALONG GROIN CREASE/UPPER THIGH. NO BRUIT NOTED TO AREA OF PUNCTURE SITE. STAT SEAL AND TEGADERM DRESSING TO SITE C/D/I. WILL CONTINUE TO MONITOR.
--- NOTE | 2020-07-19 10:46 | PM.PNCARD ---
Progress Note: A&P Assessment and Plan (1) NSTEMI (non-ST elevated myocardial infarction): Code(s): I21.4 - Non-ST elevation (NSTEMI) myocardial infarction Status: Acute Assessment and Plan: Patient is status post PCI/EAMON x1 RPL branch in the setting of non ST elevation AK. Standard post AK/post PCI medical treatment including dual antiplatelet therapy with aspirin and ticagrelor; beta-zohaib, REINALDO-inhibitor and statin. Avoid NSAIDs except aspirin. Smoking cessation counseling was done. Outpatient follow-up with Dr. Hugo. Follow-up information was provided to the patient. She was advised to follow up in 2-3 weeks after discharge. Spoke at length with the patient about importance of medication compliance, especially dual antiplatelet therapy. She verbalized understanding. Subjective Date/time seen: 07/19/20 10:46 Date of service: 07/19/2020 Chief complaint: Bruising in the right groin area Interval history: Patient had bruising in the right groin area, no active bleeding. Denies chest pain or shortness of breath. She is eager to go home. Exam Narrative: Exam Narrative: PHYSICAL EXAMINATION: GENERAL: Alert, oriented, no acute distress MENTAL STATUS: affect appropriate to mood EYES: Extraocular movements intact, no pallor EARS: External ears appear normal, hearing grossly normal NOSE: Normal and patent, no discharge MOUTH: Mucous membranes moist, tongue normal NECK: Supple, no JVD CHEST: Good respiratory effort, clear to auscultation HEART: Normal rate, regular rhythm, normal S1 and S2 ABDOMEN: Soft, nontender NEUROLOGICAL: Alert, oriented, normal speech, no gross motor deficits MUSCULOSKELETAL: No major deformity, no amputation EXTREMITIES: Ecchymosis right groin; no bruit SKIN: no rash on the exposed area, no cyanosis PSYCHIATRIC: Normal mood, appropriate affect Objective Data Vital Signs Vital Signs: Vital Signs - 24 hr 07/18/20 11:15 07/18/20 12:15 07/18/20 13:20 Temperature Pulse Rate 62 71 65 Pulse Rate [Left Pedal (Dorsalis Pedis) Palpation] Pulse Rate [Right Pedal (Dorsalis Pedis) Palpation] Respiratory Rate 16 16 13 Blood Pressure 126/87 145/77 H 143/72 H Pulse Oximetry 96 96 97 07/18/20 13:25 07/18/20 13:30 07/18/20 13:35 Temperature Pulse Rate 73 72 71 Pulse Rate [Left Pedal (Dorsalis Pedis) Palpation] Pulse Rate [Right Pedal (Dorsalis Pedis) Palpation] Respiratory Rate 18 25 H 22 H Blood Pressure 159/79 H 157/79 H 152/77 H Pulse Oximetry 99 96 98 07/18/20 13:40 07/18/20 13:45 07/18/20 13:50 Temperature Pulse Rate 87 73 68 Pulse Rate [Left Pedal (Dorsalis Pedis) Palpation] Pulse Rate [Right Pedal (Dorsalis Pedis) Palpation] Respiratory Rate 23 H 22 H 18 Blood Pressure 143/75 H 147/65 H 137/76 Pulse Oximetry 99 95 96 07/18/20 13:55 07/18/20 14:00 07/18/20 14:05 Temperature Pulse Rate 66 66 66 Pulse Rate [Left Pedal (Dorsalis Pedis) Palpation] Pulse Rate [Right Pedal (Dorsalis Pedis) Palpation] Respiratory Rate 20 12 14 Blood Pressure 121/66 129/60 141/95 H Pulse Oximetry 99 98 96 07/18/20 14:20 07/18/20 14:35 07/18/20 14:50 Temperature Pulse Rate 75 74 72 Pulse Rate [Left Pedal (Dorsalis Pedis) Palpation] Pulse Rate [Right Pedal (Dorsalis Pedis) Palpation] Respiratory Rate 16 16 16 Blood Pressure 139/64 140/69 148/75 H Pulse Oximetry 96 96 96 07/18/20 15:05 07/18/20 15:35 07/18/20 16:00 Temperature 36.8 C 36.8 C Pulse Rate 69 76 93 Pulse Rate [Left Pedal (Dorsalis Pedis) Palpation] Pulse Rate [Right Pedal (Dorsalis Pedis) Palpation] Respiratory Rate 16 16 Blood Pressure 147/64 H 141/66 H Pulse Oximetry 97 98 07/18/20 16:05 07/18/20 17:06 07/18/20 18:00 Temperature 36.9 C Pulse Rate 91 103 H 82 Pulse Rate [Left Pedal (Dorsalis Pedis) Palpation] Pulse Rate [Right Pedal (Dorsalis Pedis) Palpation] Respiratory Rate 16 Blood Pressure 121/73 Pulse Oximet
--- NOTE | 2020-07-19 11:00 | PC.NURSE ---
DR. POPE HERE TO SEE PT.
--- NOTE | 2020-07-19 11:36 | PC.NURSE ---
NOTIFIED DR. THOMAS OF [place] FROM DR. POPE FOR PT. TO DISCHARGE HOME THIS AFTERNOON AND FOLLOW UP W/ DR. HOLLIS IN OFFICE IN 2-3 WEEKS, CALL FOR APPOINTMENT.
--- NOTE | 2020-07-19 12:14 | PC.NURSE ---
NOTIFIED LESLIE IN CARE COORDINATION OF NEED FOR RX BENEFITS TO BE CHECKED FOR [employer] COVERAGE AND COST.
--- NOTE | 2020-07-19 12:50 | PC.NURSE ---
CARE COORDINATION SPOKE W/ PT. VIA PHONE TO ANSWER QUESTIONS. PT. STATES SHE IS OK WITH QUOTED [facility] FOR MONTHLY [facility] OF [employer] PRESCRIPTION.
--- NOTE | 2020-07-19 13:27 | PM.DS ---
DS: Admitting Diagnosis Admitting Diagnosis Admitting Diagnosis: elevated troponin DS: Discharge Diagnosis Discharge Diagnosis (1) NSTEMI (non-ST elevated myocardial infarction): Code(s): I21.4 - Non-ST elevation (NSTEMI) myocardial infarction Status: Acute Assessment and Plan: -Troponin peak 4.7 -history of hypertension, smoking, dyslipidemia -intermittent ischemic type chest pain with elevated troponins for indications for catheterization -left heart catheterization by Dr. Hugo: Drug-eluting stent placed in large caliber RPL branch of RCA, EF 50-55% -her antiplatelets patient is on aspirin and Brilinta, nicolas of Brilinta has been verified and patient is agreeable -patient started metoprolol succinate 50 mg, she has already been on an REINALDO-inhibitor prior to intervention -changing her cholesterol medication to rosuvastatin, high-intensity statin is indicated with coronary artery disease with intervention (2) Tobacco dependence: Code(s): F17.200 - Nicotine dependence, unspecified, uncomplicated Status: Acute Assessment and Plan: -Smoking cessation counseling done by hospitalist and retail marketing coordinator (3) Abnormal glucose: Code(s): R73.09 - Other abnormal glucose Status: Acute DS: Summary Hospital Course Reason for hospitalization: NSTEMI Hospital Course: Patient is a 65-year-old woman with past medical history of smoking, hypertension, hyperlipidemia and fibromyalgia who presents the ED with complaints of chest pain. She had atypical pain after 1st with back pain in which progressed to exertional chest pain midsternal. At 1st she thought was her fibromyalgia or back spasms. In the ED she was found to have minimal ST segment depression in inferior leads, subsequent EKG unremarkable. Troponin initial was 0.628 elevated to 4.7. On 07/18/2020 patient had left heart catheterization by Dr. Patel with drug-eluting stent placed in a high-grade 95-99% stenosis RPL branch of RCA, other branches are free of disease. She was given a 2nd dose of Angiomax for filling defect in the distal RPL branch following PCI for likely thrombus that embolized distally. Patient will be discharged with aspirin and Brilinta for antiplatelets, she understands the importance of taking both medications as prescribed to prevent stent thrombus. Patient was started on a metoprolol 50 mg daily for secondary prevention. She is already on at REINALDO-inhibitor prior to event. Changing her cholesterol medication from simvastatin to rosuvastatin for high intensity statin post NSTEMI. Patient will follow-up with cardiology Dr. Hugo in 2-3 weeks. I advised patient to not lift anything heavy and minimize strenuous activity for the next week. Smoking cessation counseling complete, patient will follow-up with PCP. Patient understands and agrees with plan. Patient's vitals stable, labs stable, patient is stable for discharge. Time spent discussing smoking cessation with patient: 3 to 10 minutes Status at Discharge Functional status at discharge: independent ambulation Overall status at discharge: patient is back to baseline Time Spent with Patient Time attestation: Total time spent providing and/or coordinating discharge services:40 Time spent: Greater than 30 minutes Exam Narrative: Exam Narrative: - GENERAL: Pleasant woman in no acute distress - EYES: EOMI. Anicteric. - HENT: Moist mucous membranes. No scleral icterus. - LUNGS: Clear to auscultation bilaterally, no wheezing, rhonchi, or rales. - CARDIOVASCULAR: Regular rate and rhythm. No murmur. No JVD. - ABDOMEN: Soft, non-tender and non-distended. No palpable masses. - EXTREMITIES: No edema. Peripheral pulses 2+. Non-tender. Right groin catheterization site clean/dry no bleeding. - NEUROLOGIC: No focal neurological deficits. CN II-XII grossly intact. - PSYCHIATRIC: Awake, Alert and oriented x 3. Appropriate mood and affect. - SKIN: No rashes or lesions. Warm. - LYMPH: No ce
--- NOTE | 2020-07-19 15:00 | PC.NURSE ---
PREPARRING FOR DISCHARGE HOME. IV SITE DISCONTINUED. DRESSING TO R. GROIN SITE CHANGED TO BANDAID. NO NEW CHANGES IN ECCHYMOSIS TO R. GROIN/ R. UPPER THIGH AREA. SITE CARE AND MONITORING OF SITE DISCUSSED W/ PT.
--- NOTE | 2020-07-19 15:15 | PC.NURSE ---
REVIEWED DISCHARGE INSTRUCTIONS, WOUND CARE, FOLLOW UP CARE, MEDICATIONS WITH PT. ALL QUESTIONS ANSWERED. VOICED UNDERSTANDING OF ALL. R. PEDAL PULSE PALP STRONG. NO CHANGE R. GROIN STATUS.
--- NOTE | 2020-07-19 15:20 | PC.NURSE ---
DISCHARGED HOME, OUT VIA WC, WITH ALL PERSONAL BELONGINGS AND DISCHARGE PACKET TO DAUGHTER'S WAITING CAR. VOICES NO C/O. NO DISTRESS NOTED.
== END 2020-07-19 15:20 | disposition home or self-care (01) | DRG 247 ==
LOC: ANHED 18:46 → ANHIMU 20:52 → ANHCPC 07-19 13:36 → ANHIMU 07-25 15:16
PROVIDERS: Specialist; Admitting Provider Family Medicine; Emergency Provider Emergency Medicine; PCP Family Medicine; Visit Provider Student in an Organized Health Care Education/Training Program
PROC: 4A023N7 Measurement of Cardiac Sampling and Pressure, Left Heart, Percutaneous Approach (ICD-10-PCS; CPT 93452; principal; 2020-07-18 07:00)
PROC: 027034Z Dilation of Coronary Artery, One Artery with Drug-eluting Intraluminal Device, Percutaneous Approach (ICD-10-PCS; 2020-07-18 07:00)
DX: I21.4 Non-ST elevation (NSTEMI) myocardial infarction (principal); I25.110 Atherosclerotic heart disease of native coronary artery with unstable angina pectoris; I10 Essential (primary) hypertension; F17.210 Nicotine dependence, cigarettes, uncomplicated; R73.09 Other abnormal glucose; E78.5 Hyperlipidemia, unspecified; M79.7 Fibromyalgia; D72.829 Elevated white blood cell count, unspecified
CPT/HCPCS: 36415; 71046; 80048; 80061; 83036; 83735; 84484; 85025; 85610; 85730; 93005; 93458; 94640; 96372; 99285; A9270; C1725; C1769; C1874; C1887; C1894; C9600; G0378; J0583; J1644; J1650; J2250; J3010; J7030; J7040

== ENCOUNTER 2020-11-10 16:30 | Outpatient (RCR) | payer MEDICARE, SELFPAY ==
[2020-09-06 15:19] VITALS: BP 122/78; PULSE 70; RESP 16; TEMP 36.4; O2SAT 97
[2020-09-06 15:20] VITALS: PULSE 70
--- NOTE | 2020-10-06 16:51 | PCCPR ---
Absent- not feeling well, thinks she may be getting a cold.
--- NOTE | 2020-10-10 13:19 | PCCPR ---
Absent today due to inclement weather.
--- NOTE | 2020-10-13 17:08 | PCCPR ---
Addendum entered by Carolina Del Toro RN 10/17/20 09:31: Karen returned call, she was busy with work last week and unable to attend. Will return this week. Original Note: Absent Karen did not call or show to class today. LM for her to call us with an update of her plan to return.
--- NOTE | 2020-10-17 15:12 | PCCPR ---
Karen will be out again this week. She called and said that she has battled depression and is taking new meds and seeing a new therapist. She is not sleeping well at night and states that she does not have the energy to exercise right now. Encouraged Karen that exercise could be beneficial in treating her depression. She plans to return next week.
--- NOTE | 2020-10-27 14:12 | PCCPR ---
Absent Karen called stats her knee's are bothering her today. She has been doing some painting in basement and doing quite a bit of bending.
--- NOTE | 2020-11-14 14:39 | PCCPR ---
Absent due to illness Karen called and states she is not feeling well and is in pain today.
--- NOTE | 2020-11-17 15:36 | PCCPR ---
Rosanna Jones states her fibromyalgia pain has flaired up. She is also scheduled to get her 2nd covid shot tomorrow.
--- NOTE | 2020-11-21 16:51 | PCCPR ---
Absent today, Karen called and stated that she did not sleep well last night and was tired.
--- NOTE | 2020-11-24 17:11 | PCCPR ---
Discharging-Karen called and left a message with Lizet stating she wants to discharge. Returned patients call and she states she has too much going on and just cant get it together. Sent patient her discharge instructions and outcomes asking her to return the outcomes in preaddressed envelop. Early exit letter sent to
== END 2020-11-24 17:34 | disposition home or self-care (01) ==
LOC: ANHCPREHAB 16:30
PROVIDERS: PCP Family Medicine; Visit Provider Nurse Practitioner Adult Health
DX: Z95.5 Presence of coronary angioplasty implant and graft (principal)
CPT/HCPCS: 93798

== ENCOUNTER → 2021-03-24 15:22 | Outpatient (CLI) | payer MEDICARE, SELFPAY ==
--- NOTE | ~2021-03-24 | MM_ITS ---
EXAMINATION: MM screening dpiti BI w heidi HISTORY: Screening TECHNIQUE: Craniocaudal and mediolateral oblique 3-D tomosynthesis images were obtained and synthetic 2-D images were generated. CAD analysis was submitted and interpreted. COMPARISON: Comparison to multiple prior studies sequentially, with oldest reviewed study dated 05/16. BREAST PARENCHYMAL COMPOSITION: The breasts are almost entirely fatty. FINDINGS: There is no evidence of suspicious mass, calcification, or architectural distortion to sugg est malignancy in either breast. There has been no suspicious interval change. IMPRESSION: 1. No mammographic evidence of malignancy. 2. Recommend routine screening mammography in one year. BI-RADS Category 1: Negative Reviewed, dictated and finalized at location A.
--- NOTE | ~2021-03-24 | CT_ITS ---
EXAMINATION: CT lung screening DATE: 03/24/2021 16:04 INDICATION: Personal history of tobacco dependence, current smoker with 30 pack year history TECHNIQUE: Computed tomography (CT) of the chest was performed without intravenous contrast. The dose -length product (DLP) was 175.23 mGy-cm. 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 COMPARISON: 07/02/2019 FINDINGS: There is mild emphysema. No suspicious pulmonary nodules are identified. A calcified nodule of the left lung apex is consistent with old granulomatous disease. The lungs are free of acute opac ities. There is no pleural effusion or pneumothorax. No pathologically enlarged thoracic lymph nodes are identified. The heart size is normal. A 5 mm hemorrhagic cyst is again noted in the upper pole of the right kidney. There is lipomatous hypertrophy of the interatrial septum. Calcified coronary puneet ry atherosclerosis is noted. There is moderate thoracic spondylosis. IMPRESSION: 1. Lung-RADS category 1: Negative. Continue annual screening with noncontrast low-dose chest CT in 12 months. Reviewed, dictated and finalized at location A. IMPRESSION: 1. Lung-RADS category 1: Negative. Continue annual screening with noncontrast l ow-dose chest CT in 12 months.
== END ==
PROVIDERS: PCP Family Medicine; Visit Provider Physician Assistant
DX: Z12.31 Encounter for screening mammogram for malignant neoplasm of breast (principal); Z12.2 Encounter for screening for malignant neoplasm of respiratory organs; Z87.891 Personal history of nicotine dependence
CPT/HCPCS: 71271; 77063; 77067

== ENCOUNTER → 2022-03-07 15:50 | Outpatient (CLI) | payer MEDICARE, SELFPAY ==
--- NOTE | ~2022-03-07 | XR_ITS ---
XR shoulder RT min 2V 03/07/2022 16:28 Indication: Right shoulder pain Procedure: 4 views right shoulder Comparison: No prior studies for comparison. Findings: There is anatomic alignment. No fracture, subluxation or dislocation. No significant soft t issue abnormality. No foreign body. Impression: 1: No significant bone or joint abnormality. Reviewed, dictated and finalized at location A. Impression: 1: No significant bone or joint abnormality.
--- NOTE | ~2022-03-07 | XR_ITS ---
XR knee RT min 4V 03/07/2022 16:28 Indication: Right knee pain Procedure: 4 views right knee Comparison: 06/16/2018 Findings: There is mild-moderate osteoarthritis of the right knee. No fracture, subluxation or disloc ation. Small joint effusion. No foreign bodies. Impression: 1: Mild-moderate tricompartment osteoarthritis of the right knee. Reviewed, dictated and finalized at location A. Impression: 1: Mild-moderate tricompartment osteoarthritis of the right knee.
--- NOTE | ~2022-03-07 | XR_ITS ---
XR knee LT min 4V 03/07/2022 16:28 INDICATION: Left knee pain PROCEDURE: 4 views left knee COMPARISON: No prior studies for comparison. FINDINGS: Fracture, dislocation or subluxation is not identified. The soft tissues appear within norm al limits. No foreign bodies are identified. IMPRESSION: 1: NO ACUTE BONE OR JOINT ABNORMALITY IDENTIFIED. Reviewed, dictated and finalized at location A.
== END ==
PROVIDERS: PCP Family Medicine; Visit Provider Physician Assistant
DX: M25.562 Pain in left knee (principal); M25.511 Pain in right shoulder; M25.561 Pain in right knee; M17.11 Unilateral primary osteoarthritis, right knee
CPT/HCPCS: 73030; 73564

== ENCOUNTER → 2022-06-11 13:20 | Outpatient (CLI) | payer MEDICARE, SELFPAY ==
--- NOTE | ~2022-06-11 | DEXA_ITS ---
Bone Density Report Name: CRISTIN PUTNAM Age: 67 Sex: Female Ethnicity: White Date of : 1955 Indication: postmenopausal; screening for osteoporosis; height loss; Referring Provider: CLEVE VILLANUEVA Study: Bone densitometry was performed. Exam Date: June 11, 2022 Accession number: [id number] Bone Density: Region BMD T-score Z-score Classification AP Spine (L3, L4) 0.932 -1.5 0.6 Osteopenia Femoral Neck (Left) 0.705 -1.3 0.4 Osteopenia Total Hip (Left) 0.837 -0.9 0.6 Normal Femoral Neck (Right) 0.669 -1.6 0.1 Osteopenia Total Hip (Right) 0.792 -1.2 0.2 Osteopenia Total Hip Mean 0.815 -1.1 0.4 Osteopenia World Health Organization criteria for BMD impression classify patients as: Normal (T-score at or above -1.0), Osteopenia (T-score between -1.0 and -2.5), or Osteoporosis (T-score at or below -2.5). 10-year Fracture Risk(1): Major Osteoporotic Fracture 9.8% Hip Fracture 2.2% Reported Risk Factors: [place] (), Neck BMD=0.669, BMI=33.2, smoking (1) FRAX(R) Version 3.08. Fracture probability calculated for an untreated patient. Fracture probability may be lower if the patient has received treatment. Clinical Information Provided by Patient: Smokes Has used the following medications: Vitamin D, Calcium, MTV Patient maximum height was 66 Menopause Age: 50 No regular weight bearing exercise Does not regularly consume dairy products Drinks caffeinated beverages Onset of menses at age 14 Number of children 2 Impression: The patient has low bone mass, based on the Right Femoral Neck T-score. The patient has an estimated ten-year risk of hip fracture of 2.2% and an estimated ten-year risk of major fracture of 9.8%, based on the WHO FRAX algorithm. The patient has risk factors, including: smoking. Discussion: BONE DENSITY IS LOW AT ONE OR MORE SKELETAL SITES. This patient's lowest T-score is low at one or more skeletal sites. It meets the World Health Organization's (WHO) criteria for ?low bone mass? (T-score between -1.0 and -2.5). The patient's 10-year risk of fracture as calculated by FRAX is less than the threshold where pharmacological therapy is recommended by the National Osteoporosis Foundation (NOF). However, all treatment decisions require clinical judgment and consideration of individual patient factors, including patient preferences, comorbidities, previous drug use, risk factors not captured in the FRAX model (e.g., frailty, falls, vitamin D deficiency, increased bone turnover, interval significant decline in bone density) and possible under or overestimation of fracture risk by FRAX. The patient should follow a healthful lifestyle (good nutrition with adequate calcium and vitamin D, and appropriate weight-bearing exercise). Follow-Up: Consider repeating this study in 2
--- NOTE | ~2022-06-11 | MM_ITS ---
EXAMINATION: MM screening dipti BI w heidi HISTORY: Screening TECHNIQUE: Craniocaudal and mediolateral oblique 3-D tomosynthesis images were obtained and synthetic 2-D images were generated. CAD analysis was submitted and interpreted. COMPARISON: Comparison to multiple prior studies sequentially, with oldest reviewed study dated 01/06. BREAST PARENCHYMAL COMPOSITION: The breasts are almost entirely fatty. FINDINGS: There is no evidence of suspicious mass, calcification, or architectural distortion to sugg est malignancy in either breast. There has been no suspicious interval change. IMPRESSION: 1. No mammographic evidence of malignancy. 2. Recommend routine screening mammography in one year. BI-RADS Category 1: Negative Reviewed, dictated and finalized at location A.
== END ==
PROVIDERS: PCP Family Medicine; Visit Provider Physician Assistant
DX: Z12.31 Encounter for screening mammogram for malignant neoplasm of breast (principal); Z78.0 Asymptomatic menopausal state; M85.88 Other specified disorders of bone density and structure, other site; M85.852 Other specified disorders of bone density and structure, left thigh; M85.851 Other specified disorders of bone density and structure, right thigh
CPT/HCPCS: 77063; 77067; 77080

== ENCOUNTER → 2022-09-12 14:46 | Outpatient (CLI) | payer MEDICARE, SELFPAY ==
--- NOTE | ~2022-09-12 | CT_ITS ---
EXAMINATION:CT lung screening DATE: 09/12/2022 15:03 INDICATION: Tobacco use. Current smoker with 30 pack year history. TECHNIQUE: Computed tomography (CT) of the chest was performed without intravenous contrast. Automate d exposure control and iterative reconstruction technique were employed. The dose-length product (DLP ) was 175.93 mGy-cm. COMPARISON: Chest CT 03/24/2021 FINDINGS: There is mild atelectasis bilaterally. A calcified left lung nodule is consistent with old granulomatous disease. No pleural effusion. The heart size is normal. There are coronary artery calci fications. No pericardial effusion. There is severe thoracic spondylosis. There is mild chronic anter ior wedging of multiple vertebral bodies. IMPRESSION: 1. Lung-RADS category 1: Negative. Continue annual screening with noncontrast low-dose chest CT in 12 months. Reviewed, dictated and finalized at location A. CH MAKER IMPRESSION: 1. Lung-RADS category 1: Negative. Continue annual screening with noncontrast l ow-dose chest CT in 12 months.
== END ==
PROVIDERS: PCP Family Medicine; Visit Provider Physician Assistant
DX: Z12.2 Encounter for screening for malignant neoplasm of respiratory organs (principal); F17.210 Nicotine dependence, cigarettes, uncomplicated
CPT/HCPCS: 71271

== ENCOUNTER → 2022-10-25 16:42 | Outpatient (CLI) | payer MEDICARE, SELFPAY ==
--- NOTE | ~2022-10-25 | XR_ITS ---
Cervical Spine: AP, lateral, open-mouth views Clinical History: Pain Findings: The normal lordotic curve is maintained. There is advanced degenerative disc narrowing at C 5-C6 and C6-C7. No acute fracture or subluxation evident. There is facet arthropathy at C4-C5 and C5- C6. Pre-vertebral soft tissues are unremarkable. Impression: No fracture or sublocation. Degenerative spondylosis, as detailed above. Reviewed, dictated and finalized at [facility]. STANT AT SURGERY Impression: No fracture or sublocation. Degenerative spondylosis, as detailed above.
--- NOTE | ~2022-10-25 | XR_ITS ---
AP view of the pelvis and AP and lateral views of the bilateral hips Clinical history: Pain Findings: No acute fracture or dislocation is seen. Osseous alignment is anatomic. Bilateral hip and SI joint spaces are preserved. Soft tissues are unremarkable. Impression: No significant abnormality is seen. Reviewed, dictated and finalized at [facility]. OCOL OFFICER Impression: No significant abnormality is seen.
--- NOTE | ~2022-10-25 | XR_ITS ---
Lumbosacral Spine: AP and lateral views Clinical History: Pain Findings: The normal lordotic curve is maintained. No fracture identified. 5 mm anterolisthesis of L4 over L5 noted. Additional probable 5 mm anterolisthesis of L5 over S1. Facet joint degenerative fritz ges are present throughout the lumbar spine. There is advanced degenerative disc narrowing at L5-S1. The sacroiliac joints are normally outlined. Impression: 5 mm anterolisthesis of L4 over L5. 5 mm anterolisthesis of L5 over S1. Additional degenerative changes, as detailed above. Reviewed, dictated and finalized at location M. ER STAMP ASSEMBLER Impression: 5 mm anterolisthesis of L4 over L5. 5 mm anterolisthesis of L5 over S1. Additional degenerative changes, as detailed above.
== END ==
PROVIDERS: PCP Family Medicine; Visit Provider Physician Assistant
DX: M25.559 Pain in unspecified hip (principal); M51.36 Other intervertebral disc degeneration, lumbar region; M47.892 Other spondylosis, cervical region
CPT/HCPCS: 72050; 72100; 73521

== ENCOUNTER 2023-02-18 13:16 | Outpatient (CLI) | payer MEDICARE, SELFPAY ==
--- NOTE | ~2023-02-18 | MR_ITS ---
MRI of the lumbar spine Clinical History: Back pain Technique: Axial T2-weighted images, and sagittal T1-weighted, T2-weighted, and and T2 fat-sat images were acquired. Findings: No acute fracture identified. There is 4 mm anterolisthesis of L4 over L5. There is 7 mm an terolisthesis of L5 over S1. No suspicious bone marrow signal abnormality seen. At L1-L2, there is mild diffuse disc bulge with mild to moderate facet arthropathy. No central canal stenosis. There is moderate to advanced right neural foraminal narrowing. Left neural foramen preserv ed. At L2-L3, there is diffuse disc bulge with advanced facet arthropathy. No central canal stenosis. The re is minimal right neural foraminal narrowing. Left neural foramen preserved. At L3-L4, there is diffuse disc bulge with advanced facet arthropathy. No central canal stenosis. The re is moderate right neural foraminal narrowing and moderate to severe left neural foraminal narrowin g. At L4-L5, diffuse disc bulge/uncovering and advanced cells are present, with minimal central canal st enosis. There is moderate to severe bilateral neural foraminal narrowing. At L5-S1, disc bulge and uncovering are present with severe facet arthropathy. There is minimal centr al canal stenosis. There is moderate to severe bilateral neural foraminal narrowing. Paravertebral soft tissues are unremarkable. Impression: 4 mm anterolisthesis of L4 over L5. 7 mm anterolisthesis of L5 over S1. Moderate to advanced degenerative spondylosis, as detailed above. Reviewed, dictated and finalized at [facility]. Impression: 4 mm anterolisthesis of L4 over L5. 7 mm anterolisthesis of L5 over S1. Moderate to advanced degenerative spondylosis, as detailed above.
== END 2023-02-18 13:17 | disposition home or self-care (01) ==
PROVIDERS: PCP Family Medicine; Visit Provider Physician Assistant
DX: M54.42 Lumbago with sciatica, left side (principal); M47.896 Other spondylosis, lumbar region
CPT/HCPCS: 72148

== ENCOUNTER 2023-04-23 09:33 | Day surgery (SDC) | payer MEDICARE, SELFPAY ==
[2023-04-19 14:38] VITALS: BMI 31.6
--- NOTE | ~2023-04-23 | XR_ITS ---
EXAMINATION: XR fluoroscopy no charge DATE: 04/23/2023 11:39 CDT INDICATION: LEFT SACROILIAC JOINT STEROID INJ . TECHNIQUE: 3 fluoroscopic images of the left sacroiliac joint were obtained during left sacroiliac nancy int steroid injection performed by the surgeon. I was not present in the operating room. Fluoroscopy exposure time was 9.7 seconds. Air Kerma 5.77 mGy. COMPARISON: None FINDINGS: A needle approaches the left SI joint, followed by contrast injection. IMPRESSION: Fluoroscopic documentation of left sacroiliac joint steroid injection. Please refer to the operative note for complete procedural details . Reviewed, dictated and finalized at location K. IMPRESSION: Fluoroscopic documentation of left sacroiliac joint steroid injection. Please r efer to the operative note for complete procedural details .
--- NOTE | 2023-04-23 08:18 | PM.HPGS ---
History of Present Illness History of Present Illness Consent: Risks, benefits, and alternatives have been discussed and questions answered. Patient agrees to proceed with procedure. Chief complaint: sacroiliitis Narrative: Karen Avalos is a 68 year old female with low back pain secondary to sacroiliac joint arthropathy for left SI joint steroid injection under fluoroscopy. [facility] Past Medical History Medical History Beta thalassemia CAD (coronary artery disease) Depression History of rectal fissure (~1981) Hypertension with heart disease Old MA (myocardial infarction) Onychomycosis Surgical History Surgical History H/O: History of section, classical (~1980) History of tooth extraction S/P coronary artery stent placement (~2019) Family History Family History Mother Diabetes mellitus Family history of diabetes mellitus in first degree relative Family history of malignant neoplasm of breast in first degree relative Family history of coronary artery disease Hypertension Acute myocardial infarction Cerebrovascular accident Congestive heart failure Father Family history of lung cancer Alcoholism Other Asthma Depression Grandparent Hypertension Depression Heart disease Cerebrovascular accident Social History Social History Smoking packs per day: 0.5 Smoking cigarettes per day: 10.0 Years smoked: 47 Smoking pack-years: 23.50 Smoking status: Current every day smoker Tobacco type: cigarettes Second hand tobacco smoke exposure: No Smoking end date: 08/26/08 Additional smoking assessment comments: attempting to quit, she has tried patch with skin irritation Alcohol intake: current Drinks per week: 8 Substance use: never Substance use type: does not use Lack of Transportation: No Lack of Food: Never True Current Housing: I Have Housing Concerned About Future Housing: No Difficulty Paying Gas/Electric Bills: YES Difficulty Paying for Meds: No Currently Unemployed: No Education: Bachelor's Degree Difficulty w/ Childcare or Family Care: No Living arrangements: alone Occupation/Education: retired Gender identity (if verbalized by the patient): Female Spiritual care concerns: No Meds Home Medications and Allergies Home Medications Medication Instructions Recorded Confirmed Type cetirizine 10 mg tablet (Zyrtec) 10 mg PO HS 07/15/20 04/19/23 History aspirin 81 mg chewable tablet 81 mg PO DAILY@0800 30 days #30 07/19/20 04/19/23 Rx (Children's Aspirin) tabs rosuvastatin 10 mg tablet (Crestor) 10 mg PO QAM 30 days #30 tabs 07/19/20 04/19/23 Rx calcium 600 mg capsule 600 mg PO QTUTH 09/08/20 04/19/23 History flaxseed oil 1,000 mg capsule 1,000 mg PO 3XW 09/08/20 04/19/23 History [id number] C-Mn 500 1,500 PO 2XW 09/08/20 01/23/23 History mg-400 mg capsule cholecalciferol (vitamin D3) 10 10 mcg PO DAILY 03/30/22 04/19/23 History mcg (400 unit) capsule coenzyme Q10 10 mg capsule (Co 10 mg PO ONCE 03/30/22 04/19/23 History Q-10) vitamin E (dl, acetate) 45 mg (100 45 mg PO DAILY 03/30/22 04/19/23 History unit) capsule metoprolol succinate 50 mg 50 mg PO DAILY 04/18/22 04/19/23 History tablet,extended release 24 hr multivitamin 1 tablet PO DAILY 04/18/22 04/19/23 History diclofenac sodium 75 mg See Rx Instructions .Route 05/18/22 04/19/23 Rx tablet,delayed release .COMPLEX #180 tabs Symbicort 160 mcg-4.5 2 puff inhalation BID #10.2 grams 08/02/22 04/19/23 Rx mcg/actuation HFA aerosol inhaler (budesonide-formoterol) montelukast 10 mg tablet 10 mg PO DAILY #90 tabs 10/12/22 04/19/23 Rx (Singulair) duloxetine 30 mg capsule,delayed 30 mg PO DAILY #90 caps 11/27/22 04/19/23 Rx relea
[2023-04-23 10:49] VITALS: BP 126/78; PULSE 87; RESP 16; TEMP 36.6; O2SAT 99
--- NOTE | 2023-04-23 11:34 | W.PM.PROC2 ---
Procedure Note - Detailed Date of Procedure 04/23/23 Pre-op Diagnosis sacroiliitis, chronic low back pain Post-op Diagnosis Same Procedure Performed Left Sacroiliac Joint Steroid Injection Under Fluoroscopy with contrast control. 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 Description of Procedure INFORMED CONSENT: Risks, benefits and alternatives to the procedure were discussed in detail with the patient who expressed explicit understanding and consent to proceed. Patient was informed verbally and in written form regarding the risks associated with the procedure including the low risk of serious infection, bleeding/bruising, allergic reaction, nerve or organ injury, paralysis, procedural site pain or discomfort, worsening pain and/or mobility, failure to treat and/or disfigurement. The patient expressed explicit understanding and consent to proceed. All materials required for the procedure were available prior to procedure start. Site and side were marked prior to procedure and confirmed in the presence of the patient. PROCEDURE IN DETAIL: The patient was brought to the procedural suite and placed in the prone position. Patient was made comfortable with use of pillows under the head/chest, hips and ankles. Skin overlying the injection site on the affected side(s) was prepared broadly with ChloraPrep applicator and draped in a sterile manner. Aseptic technique was used throughout. The left SI joint was identified in the AP view and contralateral oblique angulation with caudal tilt was utilized to optimize visualization of the inferior and medial joint line representing the posterior portion of the joint. Local anesthesia was established by infiltration with approximately 5 mL of 2% lidocaine via a 1-1/2 inch 27-gauge needle. A 22-gauge 3.5 inch Quincke spinal needle was advanced until the needle entered the inferior third of the joint space approximately 1cm cephalad from its most inferior point. In the AP view, 0.5 mL of Omnipaque 300 contrast medium was injected after negative aspiration for CSF, blood or other bodily fluid, showing appropriate intra-articular spread of contrast without evidence of intravascular, perineural or intrathecal placement. A 1.5 mL solution containing 10 mg of dexamethasone in 0.5% PF bupivacaine was injected after repeat negative aspiration. Appropriate spread of the injectate was confirmed with washout of previous injected contrast. No parasthesias were elicited. Needle was removed completely intact without difficulty. Images were saved and documented in the patient chart. Patient's skin was cleansed and sterile bandage applied. The patient tolerated the procedure well. The patient was transported to the recovery area in stable condition where they were observed for an appropriate amount of time prior to discharge, without evidence of complication. The patient was instructed to avoid excessive activity for the next 48 hours, including climbing and frequent use of stairs. Showers only for 48 hours. They were instructed not to drive or operate heavy machinery for 24 hours. They are to monitor for severe headaches, fevers, chills, night sweats, erythema/swelling at the site or any other signs of infection, bleeding/bruising, bowel or bladder changes as well as new pain, weakness or numbness in the upper or lower extremity. Should they notice these changes, they are instructed to call our office immediately or report directly to the nearest Emergency Department if no answer or if after posted office hours. COMPLICATIONS: None COMMENTS: None EXPOSURE: Time: 9.7s, Dose: 5.77mGy CONTRAST WASTED: 29.5mL Omnipaque 300. Complications None Condition Stable Disposition PACU [facility] Billing Surgery - Charge Forward: Surgery Billing
[2023-04-23 11:38] VITALS: BP 146/74; PULSE 76; O2SAT 98
[2023-04-23] MEDS: LIDOCAINE HCL 1% PF INJ 5 ML VIAL 3 ML XX (11:42)
[2023-04-23] MEDS: BUPivacaine HCL 0.5% 10 ML AMP 3 ML INFILTRATE (11:45)
[2023-04-23 11:51] VITALS: BP 113/56; PULSE 71; RESP 16; O2SAT 98
== END 2023-04-23 12:09 | disposition home or self-care (01) ==
LOC: ASC 10:30
PROVIDERS: PCP Family Medicine; Visit Provider Anesthesiology Pain Medicine
PROC: (CPT 27096; principal; 2023-04-23 11:00)
DX: M46.1 Sacroiliitis, not elsewhere classified (principal); M54.59 Other low back pain
CPT/HCPCS: 27096; 99199; G0260

== ENCOUNTER 2023-10-02 14:49 | Outpatient (CLI) | payer MEDICARE, SELFPAY ==
--- NOTE | ~2023-10-02 | CT_ITS ---
EXAMINATION:CT lung screening DATE: 10/02/2023 15:10 INDICATION: Nicotine dependence, unspecified. Current smoker with 30 pack year history. TECHNIQUE: Computed tomography (CT) of the chest was performed without intravenous contrast. Automate d exposure control and iterative reconstruction technique were employed. The dose-length product (DLP ) was 347.16 mGy-cm. COMPARISON: Chest CT 09/12/2022 FINDINGS: The lungs demonstrate mild atelectasis. There are new airspace opacities with volume loss i nvolving right lung middle lobe, consistent with atelectasis. No pleural effusion. The heart size is normal. There are coronary artery calcifications. No pericardial effusion. There is severe cervical a nd thoracic spondylosis. There is mild chronic height loss of multiple vertebral bodies. IMPRESSION: 1. Lung-RADS category 0: Incomplete. Noncontrast low-dose chest CT is recommended 1-3 months. Reviewed, dictated and finalized at location E. 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 Lung-RADS category 0: Incomplete. Noncontrast low-dose chest CT is recommend ed 1-3 months.
== END 2023-10-02 14:50 | disposition home or self-care (01) ==
PROVIDERS: PCP Family Medicine; Visit Provider Physician Assistant
DX: Z12.2 Encounter for screening for malignant neoplasm of respiratory organs (principal); Z87.891 Personal history of nicotine dependence; R93.89 Abnormal findings on diagnostic imaging of other specified body structures
CPT/HCPCS: 71271

== ENCOUNTER 2023-12-04 15:05 | Outpatient (CLI) | payer MEDICARE, SELFPAY ==
--- NOTE | ~2023-12-04 | CT_ITS ---
EXAMINATION: CT diagnostic chest wo con DATE: 12/04/2023 15:27 INDICATION: Dyspnea. TECHNIQUE: Computed tomography (CT) of the chest was performed without intravenous contrast. The dose -length product was 255.87 mGy-cm. Automated exposure control and iterative reconstruction technique were employed. COMPARISON: CT dated 10/02/2023 FINDINGS: No thoracic lymphadenopathy. There is atherosclerosis. Heart size normal. No significant pl eural or pericardial effusion. There is improved right middle lobe airspace consolidation and pleural thickening, likely atelectasis/scarring, although pneumonia not excluded. No discrete pulmonary nodu les or masses. Calcified granuloma left upper thorax. Severe cervical and thoracic spondylosis. IMPRESSION: 1. Improved right middle lobe airspace consolidation with adjacent pleural thickening, most likely at electasis/scarring, although superimposed atypical pneumonia not excluded.. Reviewed, dictated and finalized at location A. IMPRESSION: 1. Improved right middle lobe airspace consolidation with adjacent pleural thic kening, most likely atelectasis/scarring, although superimposed atypical pneumo sabina not excluded..
== END 2023-12-04 15:06 | disposition home or self-care (01) ==
LOC: ANHIMG 15:11
PROVIDERS: PCP Family Medicine; Visit Provider Physician Assistant
DX: R93.89 Abnormal findings on diagnostic imaging of other specified body structures (principal)
CPT/HCPCS: 71250

== ENCOUNTER 2024-01-16 15:34 | Outpatient (CLI) | payer MEDICARE, SELFPAY ==
--- NOTE | ~2024-01-16 | MM_ITS ---
EXAMINATION: MM screening dipti BI w heidi HISTORY: Screening TECHNIQUE: Craniocaudal and mediolateral oblique 3-D tomosynthesis images were obtained and synthetic 2-D images were generated. CAD analysis was submitted and interpreted. COMPARISON: Comparison to multiple prior studies sequentially, with oldest reviewed study dated 11/05. BREAST PARENCHYMAL COMPOSITION: The breasts are almost entirely fatty. FINDINGS: There is no evidence of suspicious mass, calcification, or architectural distortion to sugg est malignancy in either breast. There has been no suspicious interval change. IMPRESSION: 1. No mammographic evidence of malignancy. 2. Recommend routine screening mammography in one year. BI-RADS Category 1: Negative Reviewed, dictated and finalized at location A.
== END 2024-01-16 15:35 ==
PROVIDERS: PCP Family Medicine; Visit Provider Physician Assistant Medical
DX: Z12.31 Encounter for screening mammogram for malignant neoplasm of breast (principal)
CPT/HCPCS: 77063; 77067

== ENCOUNTER 2024-02-19 14:34 | Outpatient (CLI) | payer MEDICARE, SELFPAY ==
--- NOTE | ~2024-02-19 | XR_ITS ---
EXAM: XR knee LT min 4V DATE: 02/19/2024 15:02 HISTORY: M17.0 - Bilateral primary osteoarthritis of knee . COMPARISON: 03/07/2022. FINDINGS: Decreased mineralization. No fracture or dislocation. No lytic or blastic lesion. Moderate medial and lateral joint space narrowing. Mild tricompartmental osteophytosis. No erosion or periost eal change. Small volume knee joint fluid. Thickening and calcific deposition in the distal quadricep s tendon. Spherical ossifications in the posterior soft tissues may represent phleboliths or loose nancy int bodies within a Tinajero's cyst. IMPRESSION: Osteopenia. Tricompartmental left knee osteoarthritis, moderate in the medial lateral com partments. Quadriceps tendinopathy. Reviewed, dictated and finalized at location K. IMPRESSION: Osteopenia. Tricompartmental left knee osteoarthritis, moderate in the medial lateral compartments. Quadriceps tendinopathy.
--- NOTE | ~2024-02-19 | XR_ITS ---
EXAM: XR knee RT min 4V DATE: 02/19/2024 15:03 HISTORY: Bilateral primary osteoarthritis of knee CHRONIC PAIN . COMPARISON: 03/07/2022. FINDINGS: Decreased mineralization. No fracture or dislocation. No lytic or blastic lesion. Moderate medial and severe lateral joint space narrowing. Moderate tricompartmental osteophytosis. No erosion or periosteal change. Small volume knee joint fluid. Minimal atherosclerotic calcifications. IMPRESSION: Osteopenia. Tricompartmental right knee osteoarthritis, severe in the lateral compartment . Small right knee joint effusion. Reviewed, dictated and finalized at location K. IMPRESSION: Osteopenia. Tricompartmental right knee osteoarthritis, severe in t he lateral compartment. Small right knee joint effusion.
== END 2024-02-19 14:35 | disposition home or self-care (01) ==
LOC: ANHIMG 14:36
PROVIDERS: PCP Family Medicine; Visit Provider Physician Assistant Surgical
DX: M17.0 Bilateral primary osteoarthritis of knee (principal); M85.861 Other specified disorders of bone density and structure, right lower leg; M85.862 Other specified disorders of bone density and structure, left lower leg
CPT/HCPCS: 73564

== ENCOUNTER 2024-03-03 10:12 | Day surgery (SDC) | payer MEDICARE, SELFPAY ==
--- NOTE | ~2024-03-03 | XR_ITS ---
XR fluoroscopy no charge Indication: Bilateral L3, L4 and L5 nerve block TECHNIQUE: Fluoroscopy used during Bilateral L3, L4 and L5 nerve block performed by [Harrison Hayden MD] on 03/03/2024. 68 seconds of fluoroscopy with 11 fluoroscopic images captured. FINDINGS: Correlate with procedure note. IMPRESSION: Fluoroscopy used during Bilateral L3, L4 and L5 nerve block. Reviewed, dictated and finalized at location B.
[2024-03-03 11:23] VITALS: BP 92/79; PULSE 78; RESP 20; TEMP 36.6; O2SAT 95; BMI 31.8
--- NOTE | 2024-03-03 11:57 | PM.HPGS ---
History of Present Illness History of Present Illness Consent: Risks, benefits, and alternatives have been discussed and questions answered. Patient agrees to proceed with procedure. Chief complaint: Lumbosacral Spondylosis, Chronic Dorsalgia Narrative: Karen Avalos is a 68 year old female with chronic, recalcitrant and disabling bilateral lumbosacral back pain secondary to degenerative spondylosis with failure to respond to aggressive conservative measures including PT, oral and topical analgesics, opioid and nonopioid analgesics, rest, time and activity/behavioral modification over the past 1-2 years who presents for diagnostic/prognostic medial branch blocks(#1) under fluoroscopic guidance and with contrast control. Review of Systems Review of Systems: Patient denies any new infectious, allergic, cardiopulmonary, neurologic or constitutional symptoms or changes in activity tolerance or exercise capacity including new or progressive SOB/MERRITT, peripheral edema, productive cough, dysuria, nausea/vomiting, diarrhea, weight change, fevers/chills/night sweats, new or progressive neurologic deficit, cognitive or mood changes since last seen, except as documented in the HPI. All systems reviewed & are unremarkable except as noted in HPI and below PMFSH Past Medical History Medical History Beta thalassemia CAD (coronary artery disease) Depression History of rectal fissure (~1981) Hypertension with heart disease [place] (myocardial infarction) Onychomycosis Surgical History Surgical History H/O: History of section, classical (~1980) History of tooth extraction S/P coronary artery stent placement (~2019) Family History Family History Mother Diabetes mellitus Family history of diabetes mellitus in first degree relative Family history of malignant neoplasm of breast in first degree relative Family history of coronary artery disease Hypertension Acute myocardial infarction Cerebrovascular accident Congestive heart failure Father Family history of lung cancer Alcoholism Other Asthma Depression Grandparent Hypertension Depression Heart disease Cerebrovascular accident Social History Social History Smoking packs per day: 0.5 Smoking cigarettes per day: 10.0 Years smoked: 50 Smoking pack-years: 25.00 Smoking status: Current every day smoker Tobacco type: cigarettes Second hand tobacco smoke exposure: No Smoking end date: 08/26/08 Additional smoking assessment comments: attempting to quit, she has tried patch with skin irritation Alcohol intake: current Drinks per week: 6 Alcohol use details: DRINKS Substance use: former Substance use type: amphetamines Do You Feel Safe in your Home?: Yes Lack of Transportation: No Lack of Food: Never True Current Housing: I Have Housing Concerned About Future Housing: No Difficulty Paying Gas/Electric Bills: YES Difficulty Paying for Meds: YES Currently Unemployed: No Education: Bachelor's Degree Difficulty w/ Childcare or Family Care: No Living arrangements: alone Occupation/Education: retired Gender identity (if verbalized by the patient): Female Spiritual care concerns: No Meds Home Medications and Allergies Home Medications Medication Instructions Recorded Confirmed Type cetirizine 10 mg tablet (Zyrtec) 10 mg PO HS 07/15/20 03/03/24 History aspirin 81 mg chewable tablet 81 mg PO DAILY@0800 30 days #30 07/19/20 03/03/24 Rx (Children's Aspirin) tabs rosuvastatin 10 mg tablet (Crestor) 10 mg PO QAM 30 days #30 tabs 07/19/20 03/03/24 Rx calcium 600 mg capsule 600 mg PO QTUTH 09/08/20 03/03/24 History flaxseed oil 1,000 mg capsule 1,000 mg PO 3XW 09/08/20
--- NOTE | 2024-03-03 12:00 | WPDHPUPDATE1 ---
History and Physical Update Update Date/Time: 03/03/24 12:00 History and Physical has been reviewed, including an updated exam of the patient. There are NO changes in the patient's condition. Risks, benefits, and alternatives have been discussed and questions answered. Patient agrees to proceed with procedure.
--- NOTE | 2024-03-03 12:00 | W.PM.PROC2 ---
Procedure Note - Detailed Date of Procedure 03/03/24 Pre-op Diagnosis Lumbosacral Spondylosis, Chronic Dorsalgia Post-op Diagnosis Same Procedure Performed Diagnostic Bilateral Lumbar Medial Branch/Dorsal Ramus Blocks at L3, L4, L5 Treating the Ipsilateral L4-5, L5-S1 Facet Joints Under Fluoroscopic Guidance and with Contrast Control. ( 4 levels blocked). Surgeon Harrison Hayden MD Anesthesia Local Description of Procedure INFORMED CONSENT: Risks, benefits and alternatives to the procedure were discussed in detail with the patient who expressed explicit understanding and consent to proceed. Patient was informed verbally and in written form regarding the risks associated with the procedure including the low risk of serious infection, bleeding/bruising, allergic reaction, nerve or organ injury, paralysis, procedural site pain or discomfort, worsening pain and/or mobility, failure to treat and/or disfigurement. The patient expressed explicit understanding and consent to proceed. All materials required for the procedure were available prior to procedure start. Site and side were marked prior to procedure and confirmed in the presence of the patient. PROCEDURE IN DETAIL: The patient was brought to the procedural suite and placed in the prone position. Patient was made comfortable with use of pillows under the head/chest, hips and ankles. Skin overlying the injection site on the affected side(s) was prepared broadly with ChloraPrep applicator and draped in a sterile manner. Aseptic technique was used throughout. The endplates of the vertebral bodies at the site(s) of interest were aligned in the AP view. Ipsilateral oblique angulation was utilized to optimize visualization of the intersection between the superior articulating process and transverse process at each target site. Local anesthesia was established by infiltration with approximately 5 mL of 1% lidocaine via a 1-1/2 inch 27-gauge needle. A 25-gauge 3.5 inch Quincke spinal needle was advanced until the needle tip contacted periosteum at the target site, right L3. Lateral view was utilized to confirm the appropriate placement of the needle tip just anterior to the facet line and superior to the pedicle. In the Lateral view, 0.25 mL of Omnipaque 300 contrast medium was injected after negative aspiration for CSF, blood or other bodily fluid, showing appropriate extra-articular spread of contrast without evidence of intravascular, foraminal or intrathecal placement. A 0.5 mL solution of 0.5% PF bupivacaine was injected after negative repeat aspiration. Appropriate spread of the injectate was confirmed with washout of previously injected contrast. No parasthesias were elicited. Needle was removed completely intact without difficulty. The same exact procedure was repeated for all remaining levels on the ipsilateral side, right L4, L5 medial branches/dorsal ramus, modified as necessary to accommodate for the new target location with identical findings and results and no evidence of complication. The same exact procedure was repeated for all remaining levels on the contralateral side, left L3, L4, L5 medial branches/dorsal ramus, modified as necessary to accommodate for the new target location with identical findings and results and no evidence of complication. Images were saved and documented in the patient chart. Patient's skin was cleaned and sterile bandage applied. The patient tolerated the procedure well. The patient was transported to the recovery area in stable condition where they were observed for an appropriate amount of time prior to discharge, without evidence of complication. Patient was instructed on the appropriate completion of a pain diary over the next 12-24 hours. The patient was instructed to avoid excessive activity for the next 48 hours, including climbing and frequent use of stairs. Showers only for 48 hours. They were instructed not to drive or operate heavy machinery for 24 hours. They
[2024-03-03 12:34] VITALS: BP 142/71; PULSE 68; RESP 16; O2SAT 98
[2024-03-03 12:41] VITALS: BP 120/65; PULSE 68; O2SAT 95
[2024-03-03] MEDS: LIDOCAINE HCL 1% PF INJ 5 ML VIAL 3 ML INFILTRATE (12:45)
[2024-03-03] MEDS: BUPivacaine HCL 0.5% 10 ML AMP 5 ML INFILTRATE (12:46)
[2024-03-03 12:50] VITALS: BP 96/75; PULSE 68; RESP 20; O2SAT 98
== END 2024-03-03 13:15 | disposition home or self-care (01) ==
PROVIDERS: PCP Family Medicine; Visit Provider Anesthesiology Pain Medicine
PROC: (CPT 64493; principal; 2024-03-03 11:30)
DX: M47.816 Spondylosis without myelopathy or radiculopathy, lumbar region (principal); M54.89 Other dorsalgia
CPT/HCPCS: 64493; 64494; 99199

== ENCOUNTER 2024-04-30 15:29 | Outpatient (CLI) | payer MEDICARE, SELFPAY ==
--- NOTE | ~2024-04-30 | XR_ITS ---
EXAMINATION: XR lumbar spine 6V w bending DATE: 04/30/2024 16:04 INDICATION: Postlaminectomy syndrome, not elsewhere classified. TECHNIQUE: 6 views of the lumbar spine including flexion and extension views were obtained. COMPARISON: None. FINDINGS: There is 3 mm anterolisthesis of L2 on L3 and L3 on L4, and 9 mm anterolisthesis of L4 on L 5 and L5 on S1. Vertebral body heights are normal. There is mildly decreased disc height at L1-L2 and L2-L3, moderately decreased disc height at L3-L4, and severely decreased disc height at L4-L5 and L5 -S1. There is multilevel severe facet joint osteoarthritis. IMPRESSION: 1. Severe lumbar spondylosis. Reviewed, dictated and finalized at location A.
--- NOTE | ~2024-04-30 | XR_ITS ---
EXAMINATION: XR sacroiliac joints min 3V DATE: 04/30/2024 16:03 INDICATION: Sacroiliitis, not elsewhere classified. TECHNIQUE: 3 views of the sacroiliac joints were obtained. COMPARISON: None. FINDINGS: Alignment is normal. No fracture. There is severe lumbar spondylosis. There is moderate ost eoarthritis of the sacroiliac joints. IMPRESSION: 1. Moderate osteoarthritis of the sacroiliac joints. Reviewed, dictated and finalized at location A.
== END 2024-04-30 15:30 | disposition home or self-care (01) ==
PROVIDERS: PCP Family Medicine; Visit Provider Anesthesiology Pain Medicine
DX: M47.817 Spondylosis without myelopathy or radiculopathy, lumbosacral region (principal); M96.1 Postlaminectomy syndrome, not elsewhere classified; M53.3 Sacrococcygeal disorders, not elsewhere classified
CPT/HCPCS: 72114; 72202

== ENCOUNTER 2024-05-05 07:13 | Day surgery (SDC) | payer MEDICARE, SELFPAY ==
[2024-04-20 13:58] VITALS: BMI 32.1
--- NOTE | ~2024-05-05 | XR_ITS ---
EXAMINATION: XR fluoroscopy no charge DATE: 05/05/2024 8:30 CDT INDICATION: FERMÍN SI JT INJ . TECHNIQUE: 9 fluoroscopic images and 6 cine clips of the SI joints were obtained during bilateral SI joint injections, performed by Harrison Hayden MD. I was not present during the procedure. Fluorosco py exposure time was 22.3 seconds. Air Kerma 10.38 mGy. COMPARISON: 04/23/2023 and 04/30/2024 FINDINGS/IMPRESSION: Fluoroscopic documentation of bilateral SI joint injections. Please refer to the operative note for c omplete procedural details . Reviewed, dictated and finalized at location K.
--- NOTE | 2024-05-05 06:16 | PM.HPGS ---
History of Present Illness History of Present Illness Consent: Risks, benefits, and alternatives have been discussed and questions answered. Patient agrees to proceed with procedure. Chief complaint: Sacroiliitis, chronic low back pain Narrative: Karen Avalos is a 69 year old female with chronic, recalcitrant and disabling bilateral lumbosacral back pain secondary to degenerative spondylosis and sacroiliac joint arthropathy /sacroiliitis with failure to respond to aggressive conservative measures including PT, oral and topical analgesics, opioid and nonopioid analgesics, rest, time and activity/behavioral modification over the past 1-2 years who presents for therapeutic intra-articular sacroiliac joint steroid injections bilaterally under fluoroscopic guidance and with contrast control. Review of Systems Review of Systems: Patient denies any new infectious, allergic, cardiopulmonary, neurologic or constitutional symptoms or changes in activity tolerance or exercise capacity including new or progressive SOB/MERRITT, peripheral edema, productive cough, dysuria, nausea/vomiting, diarrhea, weight change, fevers/chills/night sweats, new or progressive neurologic deficit, cognitive or mood changes since last seen, except as documented in the HPI. All systems reviewed & are unremarkable except as noted in HPI and below PMFSH Past Medical History Medical History Beta thalassemia CAD (coronary artery disease) Depression History of rectal fissure (~1981) Hypertension with heart disease [place] (myocardial infarction) Onychomycosis Surgical History Surgical History H/O: History of section, classical (~1980) History of tooth extraction S/P coronary artery stent placement (~2019) Family History Family History Mother Diabetes mellitus Family history of diabetes mellitus in first degree relative Family history of malignant neoplasm of breast in first degree relative Family history of coronary artery disease Hypertension Acute myocardial infarction Cerebrovascular accident Congestive heart failure Father Family history of lung cancer Alcoholism Other Asthma Depression Grandparent Hypertension Depression Heart disease Cerebrovascular accident Social History Social History Smoking packs per day: 0.5 Smoking cigarettes per day: 10.0 Years smoked: 50 Smoking pack-years: 25.00 Smoking status: Current every day smoker Tobacco type: cigarettes Second hand tobacco smoke exposure: Yes Smoking end date: 08/26/08 Additional smoking assessment comments: attempting to quit, she has tried patch with skin irritation Alcohol intake: current Drinks per week: 6 Alcohol use details: DRINKS Substance use: former Substance use type: does not use Do You Feel Safe in your Home?: Yes Lack of Transportation: No Lack of Food: Never True Current Housing: I Have Housing Concerned About Future Housing: No Difficulty Paying Gas/Electric Bills: YES Difficulty Paying for Meds: YES Currently Unemployed: No Education: Bachelor's Degree Difficulty w/ Childcare or Family Care: No Living arrangements: with family Occupation/Education: retired Gender identity (if verbalized by the patient): Female Spiritual care concerns: No Meds Home Medications and Allergies Home Medications Medication Instructions Recorded Confirmed Type cetirizine 10 mg tablet (Zyrtec) 10 mg PO HS 07/15/20 04/20/24 History aspirin 81 mg chewable tablet 81 mg PO DAILY@0800 30 days #30 07/19/20 04/20/24 Rx (Children's Aspirin) tabs rosuvastatin 10 mg tablet (Crestor) 10 mg PO QAM 30 days #30 tabs 07/19/20 04/20/24 Rx calcium 600 mg capsule 600 mg PO QTUTH 09/08/20 0
--- NOTE | 2024-05-05 06:20 | WPDHPUPDATE1 ---
History and Physical Update Update Date/Time: 05/05/24 06:20 History and Physical has been reviewed, including an updated exam of the patient. There are NO changes in the patient's condition. Risks, benefits, and alternatives have been discussed and questions answered. Patient agrees to proceed with procedure.
--- NOTE | 2024-05-05 06:21 | W.PM.PROC2 ---
Procedure Note - Detailed Date of Procedure 05/05/24 Pre-op Diagnosis Sacroiliitis, chronic low back pain Post-op Diagnosis Same Procedure Performed bilateral Sacroiliac Joint Steroid Injection under Fluoroscopic Guidance and with Contrast Control. Surgeon Harrison Hayden MD Anesthesia Local Description of Procedure INFORMED CONSENT: Risks, benefits and alternatives to the procedure were discussed in detail with the patient who expressed explicit understanding and consent to proceed. Patient was informed verbally and in written form regarding the risks associated with the procedure including the low risk of serious infection, bleeding/bruising, allergic reaction, nerve or organ injury, paralysis, procedural site pain or discomfort, worsening pain and/or mobility, failure to treat and/or disfigurement. The patient expressed explicit understanding and consent to proceed. All materials required for the procedure were available prior to procedure start. Site and side were marked prior to procedure and confirmed in the presence of the patient. PROCEDURE IN DETAIL: The patient was brought to the procedural suite and placed in the prone position. Patient was made comfortable with use of pillows under the head/chest, hips and ankles. Skin overlying the injection site on the affected side(s) was prepared broadly with ChloraPrep applicator and draped in a sterile manner. Aseptic technique was used throughout. The right SI joint was identified in the AP view and contralateral oblique angulation with caudal tilt was utilized to optimize visualization of the inferior and medial joint line representing the posterior portion of the joint. Local anesthesia was established by infiltration with approximately 5 mL of 2% lidocaine via a 1-1/2 inch 27-gauge needle. A 22-gauge 3.5 inch Quincke spinal needle was advanced until the needle entered the inferior third of the joint space approximately 1cm cephalad from its most inferior point. In the AP view, 0.5 mL of Omnipaque 300 contrast medium was injected after negative aspiration for CSF, blood or other bodily fluid, showing appropriate intra-articular spread of contrast without evidence of intravascular, perineural or intrathecal placement. A 1.5 mL solution containing 3 mg of betamethasone in 0.5% PF bupivacaine was injected after repeat negative aspiration. Appropriate spread of the injectate was confirmed with washout of previous injected contrast. No parasthesias were elicited. Needle was removed completely intact without difficulty. The same exact procedure was repeated for all remaining levels on the contralateral side, left SI joint, modified as necessary to accommodate for the new target location with identical findings/results and no evidence of complication. Images were saved and documented in the patient chart. Patient's skin was cleansed and sterile bandage applied. The patient tolerated the procedure well. The patient was transported to the recovery area in stable condition where they were observed for an appropriate amount of time prior to discharge, without evidence of complication. The patient was instructed to avoid excessive activity for the next 48 hours, including climbing and frequent use of stairs. Showers only for 48 hours. They were instructed not to drive or operate heavy machinery for 24 hours. They are to monitor for severe headaches, fevers, chills, night sweats, erythema/swelling at the site or any other signs of infection, bleeding/bruising, bowel or bladder changes as well as new pain, weakness or numbness in the upper or lower extremity. Should they notice these changes, they are instructed to call our office immediately or report directly to the nearest Emergency Department if no answer or if after posted office hours. COMPLICATIONS: None COMMENTS: None CONTRAST WASTED: 29mL Omnipaque 300. Complications No immediate complications Condition Stable Disposition Same day [facility]
[2024-05-05 07:47] VITALS: BP 127/67; PULSE 85; RESP 16; TEMP 37.2; O2SAT 97
[2024-05-05 08:35] VITALS: BP 144/74; PULSE 90; RESP 12; O2SAT 98
[2024-05-05 08:44] VITALS: BP 145/69; PULSE 84; RESP 16; O2SAT 97
[2024-05-05] MEDS: BETAMETHASONE SODIUM PHOSPHATE PF INJ 6 MG/ML VIAL 1 MG INFILTRATE (08:46)
[2024-05-05] MEDS: BUPivacaine HCL 0.5% PF 30 ML VIAL 5 ML INFILTRATE (08:47)
[2024-05-05] MEDS: LIDOCAINE HCL 1% PF INJ 5 ML VIAL 8 ML XX (08:49)
[2024-05-05 08:51] VITALS: BP 133/106; PULSE 84; RESP 20; O2SAT 97
== END 2024-05-05 09:07 | disposition home or self-care (01) ==
PROVIDERS: PCP Family Medicine; Visit Provider Anesthesiology Pain Medicine
PROC: (CPT G0260; principal; 2024-05-05 08:30)
DX: M46.1 Sacroiliitis, not elsewhere classified (principal); M54.59 Other low back pain
CPT/HCPCS: G0260 ×2; 27096; 99199

== ENCOUNTER 2024-05-06 15:58 | Outpatient (CLI) | payer MEDICARE, SELFPAY ==
--- NOTE | ~2024-05-06 | CT_ITS ---
CT Scan of the Chest without Contrast: Clinical Indication: Abnormal CT scan Technique: Contiguous sections were acquired throughout the chest without intravenous contrast. Dose reduction technique was used on this scan by utilizing automated exposure control and iterative recon struction technique. The dose-length product (DLP) was 387.87 mGy-cm. COMPARISON: 12/04/2023 Findings: There is no evidence of any significant mediastinal, hilar or axillary lymphadenopathy. The mediastin al soft tissues appear normal. There is no evidence of pleural or pericardial effusion. Chronic right middle lobe atelectatic change noted. Remainder the lungs are clear. Images through the upper abdomen reveal no abnormalities. Stable mild compression deformities of the mid thoracic spine. Impression: Stable chronic right middle lobe atelectasis/scarring. Reviewed, dictated and finalized at [facility]. Impression: Stable chronic right middle lobe atelectasis/scarring.
== END 2024-05-06 15:59 | disposition home or self-care (01) ==
LOC: GOSHIMG 15:59
PROVIDERS: PCP Family Medicine; Visit Provider Physician Assistant
DX: R93.89 Abnormal findings on diagnostic imaging of other specified body structures (principal)
CPT/HCPCS: 71250

== ENCOUNTER 2024-06-02 08:23 | Day surgery (SDC) | payer MEDICARE, SELFPAY ==
[2024-05-27 12:41] VITALS: BMI 32.1
--- NOTE | ~2024-06-02 | XR_ITS ---
INTRAOPERATIVE FLUOROSCOPY: CLINICAL HISTORY: 69 years old Female; FERMÍN L5-S1 TRANSFORAMINAL INJ PROCEDURE COMMENTS: Limited intraoperative fluoroscopy of the lower lumbar spine was performed. CUMULATIVE DOSE: 10.3 mGy FLUOROSCOPY TIME: 22.3 seconds FINDINGS/IMPRESSION: Please refer to operative note for further details. Reviewed, dictated and finalized at location A.
--- NOTE | 2024-06-02 05:40 | WPDHPUPDATE1 ---
History and Physical Update Update Date/Time: 06/02/24 05:40 History and Physical has been reviewed, including an updated exam of the patient. There are NO changes in the patient's condition. Risks, benefits, and alternatives have been discussed and questions answered. Patient agrees to proceed with procedure.
--- NOTE | 2024-06-02 05:41 | W.PM.PROC2 ---
Procedure Note - Detailed Date of Procedure 06/02/24 Pre-op Diagnosis lumbosacral radiculopathy, lumbosacral spinal stenosis with intermittent neurogenic claudication Post-op Diagnosis Same Procedure Performed bilateral Lumbar Transforaminal Epidural Steroid Injection under Fluoroscopic Guidance and with Contrast Control at L5-S1.. Surgeon Harrison Hayden MD Anesthesia Local Description of Procedure INFORMED CONSENT: Risks, benefits and alternatives to the procedure were discussed in detail with the patient who expressed explicit understanding and consent to proceed. Patient was informed verbally and in written form regarding the risks associated with the procedure including the low risk of serious infection, bleeding/bruising, allergic reaction, nerve or organ injury, paralysis, procedural site pain or discomfort, worsening pain and/or mobility, failure to treat and/or disfigurement. The patient expressed explicit understanding and consent to proceed. All materials required for the procedure were available prior to procedure start. Site and side was marked prior to procedure and confirmed in the presence of the patient. PROCEDURE IN DETAIL: The patient was brought to the procedural suite and placed in the prone position. Patient was made comfortable with use of pillows under the head/chest, hips and ankles. Skin overlying the injection site was prepared broadly with ChloraPrep applicator and draped in a sterile manner. Aseptic technique was employed throughout. The endplates of the vertebral body at the site of interest were aligned in the AP view. Ipsilateral oblique angulation was utilized to better visualize the neuroforamen of interest. Local anesthesia was established by infiltration with approximately 5 mL of 0.5% PF lidocaine via a 1-1/2 inch 27-gauge needle. A 22-gauge 3.5 inch Morteza (pencil point) spinal needle was advanced until the needle approached the 6 o'clock position on the pedicle just superior to the exiting nerve root. on the right at L5-S1. Lateral view was utilized to confirm appropriate position of the needle tip within the superior and posterior portion of the respective foramen. In an AP view, 1 mL of Omnipaque 300 contrast medium was injected after negative aspiration for CSF, blood or other bodily fluid, showing appropriate neurogram without evidence of intravascular or intrathecal spread of contrast. Digital subtraction imaging was used with an additional 1ml of the same contrast medium to confirm absence of intravascular contrast spread. A 1mL solution containing 3 mg of betamethasone was injected after negative repeat aspiration. Appropriate spread of the injectate was confirmed with washout of previously injected contrast. No parasthesias were elicited. Needle was removed completely intact without difficulty. The same exact procedure was repeated for all remaining levels on the contralateral side, left L5-S1 neuroforamen, modified as necessary to accommodate for the new target location with identical findings and results and no evidence of complication. Images were saved and documented in the patient chart. Patient's skin was cleaned and sterile bandage applied. The patient tolerated the procedure well. The patient was transported to the recovery area in stable condition where they were observed for an appropriate amount of time prior to discharge, without evidence of complication. The patient was instructed to avoid excessive activity for the next 48 hours, including climbing and frequent use of stairs. Showers only for 48 hours. They were instructed not to drive or operate heavy machinery for 24 hours. They are to monitor for severe headaches, fevers, chills, night sweats, erythema/swelling at the site or any other signs of infection, bleeding/bruising, bowel or bladder changes as well as new pain, weakness or numbness in the upper or lower extremity. Should they notice these changes, they are instructed to call our office im
[2024-06-02 09:56] VITALS: BP 130/82; PULSE 69; RESP 20; TEMP 36.9; O2SAT 93; BMI 32.3
[2024-06-02 09:58] VITALS: BP 174/74; PULSE 74; RESP 18; O2SAT 97
[2024-06-02 10:07] VITALS: BP 133/62; PULSE 74; RESP 16; O2SAT 93
[2024-06-02] MEDS: BETAMETHASONE SODIUM PHOSPHATE PF INJ 6 MG/ML VIAL INFILTRATE (10:07)
[2024-06-02] MEDS: LIDOCAINE HCL 1% PF INJ 5 ML VIAL 4 ML XX (10:08)
[2024-06-02] MEDS: LIDOCAINE HCL 2% PF INJ 5 ML VIAL 2 ML INFILTRATE (10:10)
[2024-06-02 10:12] VITALS: BP 126/76; PULSE 73; RESP 18; O2SAT 97
== END 2024-06-02 10:37 | disposition home or self-care (01) ==
PROVIDERS: PCP Family Medicine; Visit Provider Anesthesiology Pain Medicine
PROC: (CPT 64483; principal; 2024-06-02 09:45)
DX: M54.17 Radiculopathy, lumbosacral region (principal); M48.062 Spinal stenosis, lumbar region with neurogenic claudication
CPT/HCPCS: 64483 ×2; 99199

== ENCOUNTER 2024-06-22 17:57 | Emergency (ER) | payer MEDICARE, SELFPAY ==
--- NOTE | ~2024-06-22 | CT_ITS ---
CT lumbar spine wo con Ordering provider: Nkechi Corona History: 69 years Female with . back pain with radiation down bilateral legs . Comparison: None. Technique: CT lumbar spine without contrast. Automated exposure control and iterative reconstruction technique were employed. The dose-length product was 891.85 mGy-cm. FINDINGS: VERTEBRAE: Anterolisthesis at the level of L4-L5 and L5-S1. Otherwise, Normal height and alignment. N o subluxation or visible acute fracture. DISC SPACES: Narrowing of the disc spaces L2-L3, L3-L4, L4-L5 and L5-S1. Facet joint disease at the s myla levels. T12-L1: No stenosis. L1-L2: No stenosis. Diffuse disc bulge with slight narrowing of the foramina and with right nerve ro ot compression.. L2-L3: No stenosis. Diffuse disc bulge with no definite root compression. L3-L4: Moderate spinal canal stenosis secondary to broad based disc bulge, facet arthropathy, and lig amentum flavum hypertrophy. Nerve root compression bilaterally in the foramina. L4-L5: Severe spinal canal stenosis secondary to broad based disc bulge, facet arthropathy, and liga mentum flavum hypertrophy. Bilateral nerve root compression. L5-S1: No stenosis. PARASPINOUS SOFT TISSUES: Mild atheromatous disease of the abdominal aorta. Bilateral sacroiliitis. IMPRESSION: No acute osseous abnormality. Anterolisthesis at the level of L4-L5 and L5-S1. Multilevel degenerative disc disease with variable degrees of spinal canal stenosis, intervertebral f oraminal narrowing and with nerve root compression. Reviewed, dictated and finalized at location A. IMPRESSION: No acute osseous abnormality. Anterolisthesis at the level of L4-L5 and L5-S1. Multilevel degenerative disc disease with variable degrees of spinal canal sten osis, intervertebral foraminal narrowing and with nerve root compression.
[2024-06-22 18:53] VITALS: BP 151/72; PULSE 82; RESP 20; TEMP 36.5; O2SAT 98
--- NOTE | 2024-06-22 19:10 | ED.BACK ---
HPI - Back Pain/Injury General Chief Complaint: Back Pain/Injury <Nkechi Corona APRN - Last Filed: 06/22/24 19:16> Stated Complaint: back pain hx spinal stenosis <Nkechi Corona APRN - Last Filed: 06/22/24 19:16> Time Seen by Provider: 06/22/24 19:05 <Nkechi Corona APRN - Last Filed: 06/22/24 19:16> Focused HPI: Patient is a 69-year-old female presents to the ER with significant back pain. She reports she has chronic back pain and sees pain management, but reports worsening pain and thinks something has shifted in there. Patient reports she was supposed to appointment with pain management earlier today but she was unable to make the appointment because takes me so long to get out of pain, in the car, and prepare my ice, that I could not get there in time. She endorses she is taking more pain medication is currently prescribed to her. Patient reports diclofenac cream helps immensely and she uses it all the time. She is tearful upon examination and denies being suicidal but reports life has been really tough lately because of my pain. Patient reports she has not had imaging on her back in years and would like to have that done today as she is concerned about shifting in her back. GENERAL: Well-appearing, well-nourished, and in no acute distress. HEAD: Normocephalic, atraumatic. CHEST: Clear to auscultation. ?No respiratory distress. HEART: Regular rate and rhythm.? NEURO: ?Alert and oriented x3. Patient screened in triage and initial orders placed.? ?Additional care and disposition to be based upon?diagnostic testing and treatment. <Nkechi Corona APRN - Last Filed: 06/22/24 19:16> History of Present Illness HPI Narrative: Patient missed her pain management appointment today. Agree with HPI. <Ernie Sanz MD - Last Filed: 06/22/24 22:15> Related Data Home Medications: Home Medications Medication Instructions Recorded Confirmed cetirizine 10 mg tablet (Zyrtec) 10 mg PO HS 07/15/20 05/27/24 calcium 600 mg capsule 600 mg PO QTUTH 09/08/20 05/27/24 flaxseed oil 1,000 mg capsule 1,000 mg PO 3XW 09/08/20 05/27/24 [id number]-[id number]-[id number] C-Mn 500 1 cap PO 2XW 09/08/20 05/27/24 mg-400 mg capsule cholecalciferol (vitamin D3) 10 10 mcg PO DAILY 03/30/22 05/27/24 mcg (400 unit) capsule coenzyme Q10 10 mg capsule (Co 10 mg PO 3XW 03/30/22 05/27/24 Q-10) vitamin E (dl, acetate) 45 mg (100 45 mg PO 2XW 03/30/22 05/27/24 unit) capsule metoprolol succinate 50 mg 50 mg PO DAILY 04/18/22 05/27/24 tablet,extended release 24 hr multivitamin 1 tablet PO DAILY 04/18/22 05/27/24 amlodipine 5 mg tablet 5 mg PO DAILY 04/20/24 05/05/24 benazepril 20 mg tablet 20 mg PO DAILY 04/20/24 05/27/24 budesonide-formoterol HFA 160 2 puff inhalation DAILY 04/20/24 05/27/24 mcg-4.5 mcg/actuation aerosol inhaler (Symbicort) chlorthalidone 25 mg tablet 12.5 mg PO DAILY 04/20/24 05/27/24 fenofibrate 160 mg tablet 160 mg PO DAILY 04/20/24 05/27/24 <Nkechi Corona, ELECTROCARDIOGRAPH TECHNICIAN - Last Filed: 06/22/24 19:16> Allergies/Adverse Reactions: Allergies Allergy/AdvReac Type Severity Reaction Status Date / Time erythromycin base Allergy Intermediate Nausea Verified 06/22/24 17:58 Penicillins Allergy Intermediate Rash Verified 06/22/24 17:58 haloperidol Allergy Mild EYES QUIT Verified 06/22/24 17:58 WORKING varenicline [From Chantix] AdvReac Severe suicidal Verified 06/22/24 17:58 ideations <Nkechi Corona, ELECTROCARDIOGRAPH TECHNICIAN - Last Filed: 06/22/24 19:16> Review of Systems Constitutional: Constitutional: Reports no additional constitutional complaints <Ernie Sanz MD - Last Filed: 06/22/24 22:15> ENT: Reports system reviewed and no additional complaints, except as documented <Ernie Sanz MD - Last Filed: 06/22/24 22:15> Cardiovascular: Cardiovascular: Reports no additional cardiovascular complaints <Ernie Sanz MD - Last Filed: 06/22/24 22:15> Respiratory: Respiratory: Reports no additional respiratory complaints <Ernie Sanz MD - Last Filed: 06/22/24 22:15> Musculoskeletal: Musculoskeletal: Reports back pain, Denies arthralgias and Denies joint swelling <Ernie Sanz MD - Last Filed: 06/22/24 22:15> [facility] Past Medical History Medical History: Medical History Beta thalassemia CAD (coronary artery disease) Depression History of rectal fissure (~1981) Hypertension with heart disease [place] (myocardial infarction) Onychomycosis <Nkechi Corona APRN - Last Filed: 06/22/24 19:16> Surgical History Surgical History: Surgical History H/O: History of section, classical (~1980) History of tooth extraction S/P coronary artery stent placement (~2019) <Nkechi Corona APRN - Last Filed: 06/22/24 19:16> Family History Family History: Family History Mother Diabetes mellitus Family history of diabetes mellitus in first degree relative Family history of malignant neoplasm of breast in first degree relative Family history of coronary artery disease Hypertension Acute myocardial infarction Cerebrovascular accident Congestive heart failure Father Family history of lung cancer Alcoholism Other Asthma Depression Grandparent Hypertension Depression Heart disease Cerebrovascular accident <Nkechi Corona ELECTROCARDIOGRAPH TECHNICIAN - Last Filed: 06/22/24 19:16> Social History Social History: Social History Smoking packs per day: 0.5 Smoking cigarettes per day: 10.0 Years smoked: 50 Smoking pack-years: 25.00 Smoking status: Never smoker Tobacco type: cigarettes Second hand tobacco smoke exposure: No Smoking end date: 08/26/08 Additional smoking assessment comments: attempting to quit, she has tried patch with skin irritation Alcohol intake: never Drinks per week: 6 Alcohol use details: DRINKS Substance use: never Substance use type: does not use Do You Feel Safe in your Home?: Yes Lack of Transportation: No Lack of Food: Never True Current Housing: I Have Housing Concerned About Future Housing: No Difficulty Paying Gas/Electric Bills: YES Difficulty Paying for Meds: YES Currently Unemployed: No Education: Bachelor's Degree Difficulty w/ Childcare or Family Care: No Living arrangements: alone Occupation/Education: retired Gender identity (if verbalized by the patient): Female Spiritual care concerns: No <Nkechi Corona APRN - Last Filed: 06/22/24 19:16> Exam Narrative: GENERAL: Well-appearing, well-nourished, and in no acute distress. HEAD: Normocephalic, atraumatic. ENT: Mucous membranes moist. CHEST: Clear to auscultation. No respiratory distress. HEART: Regular rate and rhythm. Normal peripheral pulses. BACK Mild discomfort over the paraspinal low lumbar region without step-offs or deformity. EXTREMITIES: Normal range of motion. No edema. NEURO: Alert and oriented x3. PSYCH: Normal mood and affect. <Ernie Sanz MD - Last Filed: 06/22/24 22:15> Course Course Emergency Course: Chronic back pain. Needs a follow-up with her pain management. Will give prescription for Percocet see if this helps her more. <Ernie Sanz MD - Last Filed: 06/22/24 22:15> Vital Signs Vital signs: Vital Signs Temperature 97.7 F 06/22/24 18:53 Pulse Rate 82 06/22/24 18:53 Respiratory Rate 20 06/22/24 18:53 Blood Pressure 151/72 H 06/22/24 18:53 Pulse Oximetry 98 06/22/24 18:53 Oxygen Delivery Room Air 06/22/24 18:53 Temperature 97.7 F 06/22/24 18:53 Pulse Rate 82 06/22/24 18:53 Respiratory Rate 20 06/22/24 18:53 Blood Pressure 151/72 H 06/22/24 18:53 Pulse Oximetry 98 06/22/24 18:53 Oxygen Delivery Room Air 06/22/24 18:53 <Nkechi L. Wray, ELECTROCARDIOGRAPH TECHNICIAN - Last Filed: 06/22/24 19:16> Vital Signs Temperature 97.7 F 06/22/24 18:53 Pulse Rate 82 06/22/24 18:53 Respiratory Rate 20 06/22/24 18:53 Blood Pressure 151/72 H 06/22/24 18:53 Pulse Oximetry 98 06/22/24 18:53 Oxygen Delivery Room Air 06/22/24 18:53 Temperature 97.7 F 06/22/24 18:53 Pulse Rate 82 06/22/24 18:53 Respiratory Rate 20 06/22/24 18:53 Blood Pressure 151/72 H 06/22/24 18:53 Pulse Oximetry 98 06/22/24 18:53 Oxygen Delivery Room Air 06/22/24 18:53 <Ernie Sanz MD - Last Filed: 06/22/24 22:15> MDM - Back Pain/Injury Lab Data Labs: Lab Results 06/22/24 Range/Units 19:37 Urine Color Yellow (Yellow) Urine Appearance Clear (Clear) Urine pH 6.5 (5.0-9.0) Ur Specific [place] 1.012 (1.001-1.035) Urine Protein Negative (Negative) mg/dL Urine Glucose (UA) Negative (Negative) mg/dL Urine Ketones Negative (Negative) mg/dL Ur Blood (Man) Negative (Negative) Urine Nitrate Negative (Negative) Urine Bilirubin Negative (Negative) Urine Urobilinogen 1.0 (<2.0) mg/dL Add Ur Microanalysis Reviewed Leukocyte Esterase Rfl 1+ H (Negative) ARMINDA/UL Urine RBC 0-2 (0-2) /hpf Urine WBC 0-5 (0-3) /hpf Ur Squamous Epith Cells None seen (Few) /hpf Urine Bacteria None seen /hpf Urine Casts 0-2 <Nkechi Corona, ELECTROCARDIOGRAPH TECHNICIAN - Last Filed: 06/22/24 19:16> Lab Results 06/22/24 Range/Units 19:37 Urine Color Yellow (Yellow) Urine Appearance Clear (Clear) Urine pH 6.5 (5.0-9.0) Ur Specific [place] 1.012 (1.001-1.035) Urine Protein Negative (Negative) mg/dL Urine Glucose (UA) Negative (Negative) mg/dL Urine Ketones Negative (Negative) mg/dL Ur Blood (Man) Negative (Negative) Urine Nitrate Negative (Negative) Urine Bilirubin Negative (Negative) Urine Urobilinogen 1.0 (<2.0) mg/dL Add Ur Microanalysis Reviewed Leukocyte Esterase Rfl 1+ H (Negative) ARMINDA/UL Urine RBC 0-2 (0-2) /hpf Urine WBC 0-5 (0-3) /hpf Ur Squamous Epith Cells None seen (Few) /hpf Urine Bacteria None seen /hpf Urine Casts 0-2 <Ernie Sanz MD - Last Filed: 06/22/24 22:15> Discharge Plan Discharge Clinical Impression: Chronic back pain <Nkechi Corona APRN - Last Filed: 06/22/24 19:16> Patient Disposition: Home, Self-Care <Nkechi oCrona APRN - Last Filed: 06/22/24 19:16> Condition: Stable <Nkechi Corona APRN - Last Filed: 06/22/24 19:16> Instructions: Chronic Back Pain (DC) <Nkechi Corona APRN - Last Filed: 06/22/24 19:16> Additional Instructions: Please return to the emergency department if you develop severe pain that is not controlled by pain medications or if you are unable to walk because of pain or weakness. Return to the emergency department immediately if you develop fevers, loss of bowel or bladder control (dribbling of urine or having accidents you wouldn't normally have), inability to urinate, numbness of your genital or anal area, or weakness/numbness of your legs or arms as these could all be signs of a serious medical emergency. <Nkechi Corona APRN - Last Filed: 06/22/24 19:16> Prescriptions: New oxycodone-acetaminophen [Percocet] 5-325 mg tablet 1 tablet PO Q6H PRN (Reason: pain) Qty: 10 0RF No Action metoprolol succinate 50 mg tablet extended release 24 hr 50 mg PO DAILY multivitamin Tablet 1 tablet PO DAILY cholecalciferol (vitamin D3) 10 mcg (400 unit) capsule 10 mcg PO DAILY vitamin E (dl, acetate) 45 mg (100 unit) capsule 45 mg PO 2XW coenzyme Q10 [Co Q-10] 10 mg capsule 10 mg PO 3XW cetirizine [Zyrtec] 10 mg Tablet 10 mg PO HS aspirin [Children's Aspirin] 81 mg Tablet,Chewable 81 mg PO DAILY@0800 30 Days Qty: 30 1RF rosuvastatin [Crestor] 10 mg Tablet 10 mg PO QAM 30 Days Qty: 30 1RF calcium 600 mg Capsule 600 mg PO QTUTH flaxseed oil 1,000 mg Capsule 1,000 mg PO 3XW knvhioikizi-hbaiqcmvp-pjg C-Mn 500-400 mg Capsule 1 cap PO 2XW albuterol sulfate 90 mcg/actuation HFA aerosol inhaler 1 inh inhalation Q4H PRN (Reason: shortness of breath or wheezing) Qty: 8.5 0RF duloxetine 30 mg capsule,delayed release(DR/EC) 30 mg PO DAILY Qty: 90 1RF Rx Instructions: Take 30mg capsule in AM, 60mg capsule in PM duloxetine 60 mg capsule,delayed release(DR/EC) 60 mg PO HS Qty: 90 2RF Rx Instructions: Take 30mg capsule in AM, 60mg capsule in PM montelukast [Singulair] 10 mg tablet 10 mg PO DAILY Qty: 90 3RF hydrocodone-acetaminophen 5-325 mg tablet 0.5 tablet PO Q12H MDD 1 tab PRN (Reason: pain) 30 Days Qty: 60 0RF Rx Instructions: 1/2-1 tablet p.o. q.12 hours as needed for severe pain, maximum 2 tabs a day cyclobenzaprine 10 mg tablet See Rx Instructions .ROUTE .COMPLEX Qty: 90 0RF Dose Instruction: TAKE 1 TABLET BY MOUTH 3 TIMES DAILY NEEDED FOR NECK PAIN Patient Comments: TAKES ONE AT HS Rx Instructions: TAKE 1 TABLET BY MOUTH 3 TIMES DAILY NEEDED FOR NECK PAIN diclofenac sodium 75 mg tablet,delayed release (DR/EC) 75 mg PO BID Qty: 180 3RF Patient Comments: TAKES ONCE A DAY Rx Instructions: TAKE 1 TABLET BY MOUTH TWICE A DAY DAILY gabapentin 300 mg capsule 300 mg PO Q8H MDD 3 30 Days Qty: 90 2RF Rx Instructions: take 1 capsule p.o. q.8 hours as tolerated for radiculopathy. chlorthalidone 25 mg tablet 12.5 mg PO DAILY Rx Instructions: TAKE ONE-HALF TABLET BY MOUTH DAILY amlodipine 5 mg tablet 5 mg PO DAILY Rx Instructions: TAKE 1 TABLET BY MOUTH DAILY benazepril 20 mg tablet 20 mg PO DAILY Rx Instructions: TAKE 1 TABLET BY MOUTH DAILY fenofibrate 160 mg tablet 160 mg PO DAILY Rx Instructions: TAKE 1 TABLET BY MOUTH DAILY budesonide-formoterol [Symbicort] 160-4.5 mcg/actuation HFA aerosol inhaler 2 puff inhalation DAILY <Nkechi Corona APRN - Last Filed: 06/22/24 19:16> Follow-up/Referrals: Sunny Bai MD [Primary Care Provider] - 1 Week Danika Strong MD [Physician] - 1 Week <Nkechi Corona APRN - Last Filed: 06/22/24 19:16>
[2024-06-22] MEDS: HYDROcodone/acetaminophen (*CRX) 5-325 MG TABLET 1 TAB PO (19:26)
[2024-06-22 20:34] LABS: Add Urine Microscopic? YES; Appearance Urine Clear (Clear); Bacteria Urine None Seen /hpf; Bilirubin Urine Negative (Negative); Blood Urine Negative (Negative); Color Urine Yellow (Yellow); Glucose Urine UA Negative (Negative); Ketones Urine Negative (Negative); Leukocyte Esterase Ur 1+ LEU/UL (Negative); Need Manual Microscopic Reviewed; Nitrate Urine Negative (Negative); Non Pathogenic Casts 0-2; Protein Urine Negative (Negative); RBC Urine 0-2 /hpf (0-2); Specific Grav Ur 1.012 (1.001-1.035); Squamous Epithelial Cell Urine None Seen /hpf (Few); WBC Urine 0-5 /hpf (0-3); pH Urine 6.5 (5.0-9.0)
[2024-06-22 22:13] VITALS: BP 127/76; PULSE 76; RESP 16; TEMP 36.6; O2SAT 98
== END 2024-06-22 22:15 | disposition home or self-care (01) ==
PROVIDERS: Registered Nurse; Emergency Provider Emergency Medicine; PCP Family Medicine
DX: M54.50 Low back pain, unspecified (principal); G89.29 Other chronic pain; I11.0 Hypertensive heart disease with heart failure; I50.9 Heart failure, unspecified; I25.10 Atherosclerotic heart disease of native coronary artery without angina pectoris; F32.A Depression, unspecified; I25.2 Old myocardial infarction; R82.998 Other abnormal findings in urine
CPT/HCPCS: 72131; 81001; 87086; 99284; A9270

== ENCOUNTER 2024-08-07 12:53 | Outpatient (CLI) | payer MEDICARE, SELFPAY ==
--- NOTE | ~2024-08-07 | MR_ITS ---
MRI of the lumbar spine Clinical History: Radiculopathy Technique: Axial T2-weighted images, and sagittal T1-weighted, T2-weighted, and T2 fat-sat images wer e acquired. COMPARISON: 02/18/2023 Findings: There is no acute fracture. Stable grade 1 anterolisthesis of L4 over L5, and L5 over S1. O sseous alignment is unchanged. No suspicious bone marrow signal abnormality. At L1-L2, there is moderate degenerative disc narrowing. Diffuse disc bulge and moderate facet arthro karina are present. There is no nixon central canal stenosis. There is mild left neural foraminal narr owing, and advanced right neural foraminal narrowing. At L2-L3, there is moderate degenerative disc narrowing. There is diffuse disc bulge with severe face t arthropathy. No nixon central canal stenosis. There is mild bilateral neural foraminal narrowing. At L3-L4, there is advanced degenerative disc narrowing. Diffuse disc bulge and moderate to advanced facet arthropathy are present. There is mild central canal stenosis. There is severe bilateral neural foraminal narrowing, left worse than right. At L4-L5, diffuse disc bulge/uncovering with severe facet arthropathy contribute to severe spinal can al stenosis/thecal sac compression. There is severe bilateral neural foraminal compromise. At L5-S1, there is diffuse disc bulge/uncovering with severe facet arthropathy. There is mild central canal stenosis. There is moderate to advanced bilateral neural foraminal narrowing. Paravertebral soft tissues are unremarkable. Impression: Advanced degenerative spondylosis, essentially unchanged from prior exam. Stable grade 1 anterolisthesis of L4 over L5, and of L5 over S1. Reviewed, dictated and finalized at [facility]. [facility] Impression: Advanced degenerative spondylosis, essentially unchanged from prior exam. Stable grade 1 anterolisthesis of L4 over L5, and of L5 over S1.
== END 2024-08-07 12:54 | disposition home or self-care (01) ==
LOC: GOSHIMG 12:54
PROVIDERS: PCP Family Medicine; Visit Provider Neurological Surgery
DX: M47.26 Other spondylosis with radiculopathy, lumbar region (principal)
CPT/HCPCS: 72148

== ENCOUNTER 2024-10-29 10:19 | Outpatient (CLI) | payer MEDICARE, SELFPAY ==
--- OUTSIDE RECORDS SUMMARY | 2024-10-29 11:46 | XMS_ITS | Continuity of Care Document ---
Author Organization [facility] Address [address] [place] [address] Phone Care Team Providers Care Information Systems Security Officer Name Role Phone Lilliam Valdez Unavailable Unavailable Advance Directives Directive Yes / No Effective Date File Name No Information Encounters Encounter Description Practice Location Reason(s) For Visit Diagnoses Date Provider Providers Copied on Encounter [facility], [address], [place], [place], [id number], [place] tel:[phone] [facility] No Information [address] , [address], [place], [address], [place]. tel:[phone] Family History Family Member Type Diagnosis Age At Onset No Information Payers Payer name Insurance type Covered democrat ID Authoriza tion(s) No Information Social History Type Description Quantity Date Captured Comments Sex Female Smoking Status No Information Chief Complaint And Reason For Visit No Information Reason For Referral Reason For Referral No Information History Of Present Illness Encounter Date Complaint History Of Prese nt Illness No Information Functional Status Date Functional Assessmen t No Information Instructions Date Instruction Additional Infor mation No Information Assessments Type Assessment Date No Information Patient Care Teams Name Effective Dates (start - stop) Status Members No Information
--- OUTSIDE RECORDS SUMMARY | 2024-10-29 11:46 | XMS_ITS | Patient Health Summary ---
Author Organization [facility] Address [address] [place] [address] Care Team Providers Care Break Up Worker Name Role Phone Sunny Bai MD Primary Care Provider [phone] Note from [facility],non-owned Affiliates and Associated Physician Practices is amultiple site organization consisting of ambulatory clinics and hospital sitesin [place], [place], [place] and [place]. This disclosure is being madepursuant to the Care Everywhere program and may not contain all information available regarding this patient. Last updated 18.[facility] Allergies * Penicillins(Rash) -Medium Criticality Immunizations * INFLUENZA VACCINE, QUADR. (FLUZONE; FLULAVAL; FLUARIX; AFLURIA QUADRIVALENT; 6MO+), 0.5 ML (IIV4)(Given 06/01/2020) Social History Tobacco Use Types Packs/Day Years Used Date Smoking Tobacco: Never Assessed Sex and Gender Information Value Date Recorded Sex Assigned at Not on file Gender Identity Not on file Sexual Orientation Not on file Care Teams Break Up Worker Relationship Specialty Start Date End Date Sunny Bai MD [address] [place] [address] PCP - General Family Medicine 06/19/24
--- OUTSIDE RECORDS SUMMARY | 2024-10-29 11:46 | XMS_ITS | Clinical Summary ---
Author Organization [facility] Address [address] [place] [address] Care Team Providers Care Visual Coordinator Name Role Phone Sunny Bai MD Primary Care Provider [phone] Source Comments [facility],non-owned Affiliates and Associated Physician Practices is amultiple site organization consisting of ambulatory clinics and hospital sitesin [place], [place], [place] and [place]. This disclosure is being madepursuant to the Care Everywhere program and may not contain all information available regarding this patient. Last updated 18.[facility] Allergies Active Allergy Reactions Criticality Noted Date Comments Penicillins Rash Medium 06/01/2020 Encounters Date Type Department Care Team Description 08/03/2024 Orders Only [facility] - [facility] [address] [facility] [place] [address] Phani Meier MD Neck pain from Last 3 Months Immunizations Name Administration Dates Next Due INFLUENZA VACCINE, QUADR. (F LUZONE; FLULAVAL; FLUARIX; AFLURIA QUADRIVALENT; 6MO+), 0.5 ML (IIV4) 06/01/2020 Social History Tobacco Use Types Packs/Day Years Used Date Smoking Tobacco: Never Assessed Sex and Gender Information Value Date Recorded Sex Assigned at Not on file Gender Identity Not on file Sexual Orientation Not on file Plan of Treatment Health Maintenance Due Date Last Done Comments BONE DENSITY TESTING 1955 COLOGUARD (AGES 45-75) - COL ON CA SCREENING 1953 COLON MONITORING 1953 COLONOSCOPY - COLON CA SCREENING 1953 CT COLONOGRAPHY - COLON CA SCREENING 1953 Colorectal Cancer Screening 1953 FIT - COLON CA SCREENING 1953 FLEX SIG - COLON CA SCREENING 1953 LIPID TESTING 1953 MAMMOGRAM 1953 HEPATITIS C SCREENING 03/31/1971 DTAP/TDAP/TD VACCINES (1 - Tdap) 1972 PNEUMOCOCCAL VACCINE 50+ (1 of 1 - PCV) 2003 ZOSTER VACCINE (1 of 2) 2003 COVID-19 VACCINE (1 - 2023-2 5 season) 2024 INFLUENZA VACCINE (#1) 2024 06/01/2020 DEPRESSION SCREENING 08/26/2024 MEDICARE AWV CALENDAR YEAR 2024 Respiratory Syncytial Virus (RSV) Vaccine Pt: or over 60 yrs (1 - 1-dose 75+ series) 2028 HEPATITIS B VACCINE Aged Out No longe r eligible based on patient's age to complete this topic HIB VACCINE Aged Out No longer eligi ble based on patient's age to complete this topic HPV VACCINE Aged Out No longer eligi ble based on patient's age to complete this topic MENINGOCOCCAL (Group B) VACCINE Aged Out No longer eligible based on patient's age to complete this topic MENINGOCOCCAL VACCINE Aged Out No ruy kadeem eligible based on patient's age to complete this topic Care Teams Visual Coordinator Relationship Specialty Start Date End Date Sunny Bai MD [address] [place] [address] PCP - General Family Medicine 06/19/24
--- OUTSIDE RECORDS SUMMARY | 2024-10-29 11:46 | XMS_ITS | CONTINUITY OF CARE DOCUMENT ---
Author Name abraham rosario Address Unknown Organization [facility] Address [address] [place] [address] Phone [phone] Care Team Providers Care Autistic Teacher Name Role Phone Flynn Beltrán MD Unavailable [phone] Flynn Beltrán MD Unavailable [phone] INSURANCE PROVIDERS Payer name Policy type / Coverage type [place] red republican ID [employer] MEDICARE ADVANTAGE ST 0 003 (HMO POS) Medicare [id number]
--- OUTSIDE RECORDS SUMMARY | 2024-10-29 11:46 | XMS_ITS | Referral Summary ---
Author Organization [facility] [address] Address [address] [place] [address] Phone Care Team Providers Care Software Administrator Name Role Phone Sunny Bai MD Primary Care Provider Franklin Sorensen MD Unavailable [phone] Allergies Active Allergy Reactions Criticality Noted Date Comments Erythromycin Vomiting Low Penicillins Rash Medium 05/11/2019 Medications cyclobenzaprine (FLEXERIL) 10 mg tablet take 1 tablet by oral route 2 times every day 0 0 6 Active benazepril (LOTENSIN) 20 mg tablet take 1 tablet by oral route every day 0 [address] (VOLTAREN) 75 mg EC tablet take 1 tablet by oral route 2 times every day 0 0 6 Active estrogens, conjugated, (PREMARIN) vaginal cream insert 0.5 - 1 Gram by Vaginal route q hs for 2-3 weeks, then 2-3 X/week 1 Tube 6 6 Active montelukast (SINGULAIR) 10 mg tablet take 1 tablet by oral route every day in the evening [address] (CYMBALTA) 60 mg capsule take 1 capsule by oral route every day 0 0 6 Active calcium carb-vit D3-soy isoflv 500-200-45 mg-unit-mg tablet Take by mouth. Active multivitamin tablet tabletIndications:Vi tamin Deficiency Prevention Take by mouth. Active amLODIPine (NORVASC) 5 mg tablet TK 1 T PO QD [address] (CYMBALTA) 30 mg capsule TK ONE C PO ONCE A DAY WITH 60MG C. 0 8 Active fenofibrate (TRIGLIDE) 160 mg tablet 9 Active chlorthalidone 25 mg tablet TK 1/ T PO QD 5 9 Active coenzyme Q10 10 mg capsule Take 1 capsule (10 mg total) by mouth daily Active flaxseed oil oil Act maria fernanda aspirin 81 mg chewable tablet 0 Active gabapentin (NEURONTIN) 300 mg capsule Take 1 capsule (300 mg total) by mouth 4 Active Trelegy Ellipta 100-62.5-25 mcg inhaler Inhale 1 puff daily 4 Active buPROPion XL (WELLBUTRIN XL) 150 mg 24 hr tablet Take 1 tablet (150 mg total) by mouth every morning 4 Active nitroglycerin (NITROSTAT) 0.[address] 1 tablet (0.4 mg total) under the tongue every 5 (five) minutes as needed for chest pain 25 tablet 2 4 Active metoprolol XL (TOPROL-XL) 50 mg extended release tabletIndications:Co ronary atherosclerosis of [place] coronary artery TAKE 1 TABLET BY MOUTH DAILY 100 tablet 2 4 Active rosuvastatin (CRESTOR) 10 mg tabletIndications:Co ronary atherosclerosis of [place] coronary artery TAKE 1 TABLET BY MOUTH DAILY 100 tablet 1 4 Active Active Problems Problem Noted Date Diagnosed Date History of coronary artery stent placement 11/08 Beta-thalassemia 05/11/2019 Erythrocytosis 05/08/2019 Spinal stenosis of cervical region 05/23/2016 Social History Tobacco Use Types Packs/Day Years Used Date Smoking Tobacco: Some Days Cigarettes 0.5 15 Smokeless Tobacco: Never Tobacco Cessation:Ready to Q uit: Not Asked; Counseling Given: Not Answered Alcohol Use Standard Drinks/Week Comments Yes 0 (1 standard drink = 0.6 oz pur e alcohol) Personal Safety Answer Date Recorded Getting School Help Needed Not on file 08/23 Comments No Sex and Gender Information Value Date Recorded Sex Assigned at Not on file Legal Sex Female 7:45 PM MANAGER DI[employer]ET[employer] Gender Identity Female 11/07/2020 6:15 AM CDT Sexual Orientation Straight 11/07/2020 6: 15 AM CDT Occupation Industry Job Start Date Job End Date retired Not on file Not on file Not on file Last Filed Vital Signs Vital Sign Reading Time Taken Comments Blood Pressure 120/68 10/29/2023 3:12 PM MANAGER [employer] Pulse 82 10/29/2023 3:12 PM MANAGER [employer] Temperature 37.1 C (98.7 F) 05/11/2019 1:45 PM CDT Respiratory Rate 16 05/11/2019 1:45 PM CDT Oxygen Saturation 96% 10/29/2023 3:12 PM MANAGER DI[employer] Inhaled Oxygen Concentration - - Weight 85 kg (187 lb 8 oz) 10/29/2023 3:12 PM CS T Height 163.8 cm (5' 4.5 ) 10/29/2023 3:12 PM MANAGER DIABETES Body Mass Index 31.69 10/29/2023 3:12 PM MANAGER DIABETES Plan of Treatment Not on file Insurance O REF MEDICARE SOLUTIONS MEDICARE SOLUTIONS Care Teams Software Administrator Relationship Specialty Start Date End Date Sunny Bai MD [address] [place] [address] PCP - General Family Medicine 02/21/17 Franklin Sorensen MD [address] [facility] [address] [place] [address] Medical Oncologist/Church Secretary Hematology and Oncology 05/08/19
--- OUTSIDE RECORDS SUMMARY | 2024-10-29 11:46 | XMS_ITS | Clinical Summary ---
Author Organization [facility] Address [address] [facility] [place] [address] Phone Care Team Providers Care Hog Man Name Role Phone Maranda Forbes MD Primary Care Provider [phone] Allergies No known active allergies Medications fluticasone-digna meterol (ADVAIR DISKUS) 250-50 MCG/DOSE AEROSOL POWDER, BREATH ACTIVATED take 1 Puff by inhalation 2 times daily. Active albuterol (PROVENTIL HFA, VENTOLIN HFA) 108 (90 BASE) MCG/ACT Aerosol Solution take 2 Puffs by inhalation every 4 hours as needed for Wheezing. Active cetirizine (ZYRTEC) 10 MG Tablet Take 10 mg by mouth daily. Active DULoxetine (CYMBALTA) [address] Particles Take 60 mg by mouth daily. Active diclofenac (VOLTAREN) 75 MG Tablet Delayed Response Take 75 mg by mouth 3 times daily. Active cyclobenzaprine (FLEXERIL) 10 MG Tablet Take 10 mg by mouth 3 times daily as needed for Muscle spasms. Active pregabalin (LYRICA) 25 MG Capsule Take 25 mg by mouth 3 times daily. Active montelukast (SINGULAIR) 10 MG Tablet Take 10 mg by mouth every evening. Active Multiple Vitamin (MULTI-VITAMIN PO) Take by mouth. Activ e Triamcinolone Acetonide (NASACORT ALLERGY 24HR) 55 MCG/ACT Aerosol by Nasal route. Acti ve simvastatin (ZOCOR) 5 MG Tablet Take 5 mg by mouth every evening. Active traMADol (ULTRAM) 50 MG Tablet Take 50 mg by mouth every 6 hours as needed for Pain. Active traZODone (DESYREL) 50 MG Tablet Take 50 mg by mouth nightly. Active Kamas-3 Fatty Acids (FISH OIL PO) Take by mouth. Activ e Flaxseed, Linseed, (FLAX SEED OIL PO) Take by mouth. Ac tive Coenzyme Q10 (COQ10) 100 MG Capsule Take by mouth. Activ e Calcium Carb-Vit D-Soy Isoflav (SOY FORMULA PO) Take by mouth. Act maria fernanda Naproxen Sodium (ALEVE PO) Take by mouth. Acti ve VITAMIN E PO Take by mouth. Ac tive Cholecalciferol (VITAMIN D PO) Take by mouth. Active Dextrose, Diabetic Use, (GLUCOSE PO) Take by mouth. Ac tive Active Problems Problem Noted Date Diagnosed Date Cervical spinal stenosis 05/23/2016 Family History Medical History Relation Name Comments No Known Problems Brother Cancer Father Cancer Mother Congestive Heart Failure Mother Diabetes Mother Hypertension Mother No Known Problems Sister Relation Name Status Comments Brother Alive Father Maternal Grandfather Maternal Grandmother Mother Paternal Grandfather Paternal Grandmother Sister Alive Social History Tobacco Use Types Packs/Day Years Used Date Smoking Tobacco: Every Day Cigarettes 0.3 40 Smokeless Tobacco: Never Alcohol Use Standard Drinks/Week Comments Yes 8 (1 standard drink = 0.6 oz pur e alcohol) Comments No Sex and Gender Information Value Date Recorded Sex Assigned at Not on file Legal Sex Female 4:01 PM CDT Gender Identity Not on file Sexual Orientation Not on file Last Filed Vital Signs Vital Sign Reading Time Taken Comments Blood Pressure 142/86 05/23/2016 2:54 PM CDT Pulse 82 05/23/2016 2:54 PM CDT Temperature 36.6 C (97.8 F) 05/23/2016 2:54 PM CDT Respiratory Rate - - Oxygen Saturation 96% 05/23/2016 2:54 PM CDT Inhaled Oxygen Concentration - - Weight 79.4 kg (175 lb) 05/23/2016 2:54 PM CDT Height 165.1 cm (5' 5 ) 05/23/2016 2:54 PM CDT Body Mass Index 29.12 05/23/2016 2:54 PM CDT Plan of Treatment Health Maintenance Due Date Last Done Comments DEXA Bone Density 1955 Hepatitis C Virus (HCV) Screening 1955 TdaP Immunization 1955 Colonoscopy 1998 Colorectal Cancer Screening 1998 Cologuard 2003 Immunochemical Fecal Occult Blood 2003 Mammogram 2003 Pneumococcal Immunization (5 0+ years) (1 of 1 - PCV) 2003 Zoster Immunization (1 of 2) 2003 Influenza Immunization (#1) 2024 SARS-COV-2 Immunization ( - 2023- season) 2024 Respiratory Syncytial Virus (RSV) Immunization (Adult) (1 - 1-dose 75+ series) 2028 Hepatitis B Immunization Aged Out No longer eligible based on patient's age to complete this topic Meningococcal Immunization (ACWY) Aged Out No longer eligible based on patient's age to complete this topic Rotavirus Immunization Aged Out No lo nger eligible based on patient's age to complete this topic Care Teams Hog Man Relationship Specialty Start Date End Date Maranda Forbes MD [address] [place] [address] PCP - General Family Medicine 03/14/16
--- OUTSIDE RECORDS SUMMARY | 2024-10-29 11:46 | XMS_ITS | Referral Summary ---
Author Organization [facility] Address [address] [place] [address] Care Team Providers Care Mathematical Engineering Technician Name Role Phone Sunny Bai MD Primary Care Provider [phone] Source Comments [facility],non-owned Affiliates and Associated Physician Practices is amultiple site organization consisting of ambulatory clinics and hospital sitesin [place], [place], [place] and [place]. This disclosure is being madepursuant to the Care Everywhere program and may not contain all information available regarding this patient. Last updated 18.[facility] Encounters Date Type Department Care Team Description 08/03/2024 Orders Only [facility] [address] [facility] [place] [id number] Phani Meier MD Neck pain from Last 3 Months Allergies Active Allergy Reactions Criticality Noted Date Comments Penicillins Rash Medium 06/01/2020 Immunizations Name Administration Dates Next Due INFLUENZA VACCINE, QUADR. (F LUZONE; FLULAVAL; FLUARIX; AFLURIA QUADRIVALENT; 6MO+), 0.5 ML (IIV4) 06/01/2020 Social History Tobacco Use Types Packs/Day Years Used Date Smoking Tobacco: Never Assessed Sex and Gender Information Value Date Recorded Sex Assigned at Not on file Gender Identity Not on file Sexual Orientation Not on file Plan of Treatment Not on file Care Teams Mathematical Engineering Technician Relationship Specialty Start Date End Date Sunny Bai MD [address] [place] [address] PCP - General Family Medicine 06/19/24
--- OUTSIDE RECORDS SUMMARY | 2024-10-29 11:46 | XMS_ITS | Clinical Summary ---
Author Organization [facility] [address] Address [address] [place] [address] Phone Care Team Providers Care Police Magistrate Name Role Phone Sunny Bai MD Primary Care Provider Franklin Sorensen MD Unavailable [phone] Allergies Active Allergy Reactions Criticality Noted [...] 9 Active chlorthalidone 25 mg tablet TK / T PO QD 5 9 Active coenzyme [...] mg extended release tabletIndications:Co ronary atherosclerosis of [place] coronary artery TAKE 1 TABLET BY MOUTH DAILY 100 tablet 2 4 Active rosuvastatin (CRESTOR) 10 mg tabletIndications:Co ronary atherosclerosis of [place] coronary artery TAKE 1 TABLET BY MOUTH DAILY 100 tablet 1 4 Active Active Problems Problem Noted Date Diagnosed Date History of coronary artery stent placement 11/08 Beta-thalassemia 05/11/2019 Erythrocytosis 05/08/2019 Spinal stenosis of cervical region 05/23/2016 Surgical History Surgery Date Site/Laterality Comments CERVICAL CONE BIOPSY 08/26/1983 - 08/25/1984 class III pap smear ANAL FISSURECTOMY 08/26/1986 - 08/25/1987 SECTION 08/26/1980 - 08/25/1981 with appendectomy SECTION COLONOSCOPY Medical History Medical History Date Comments Depression hospitalization in 2012 Abnormal Pap smear of cervix cl ass III pap smear Genital herpes 1981 IBS (irritable bowel syndrome) Hypertension Hyperlipidemia Fibromyalgia Seasonal allergies Bulging lumbar disc 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 Anxiety Arthritis Bronchitis Family History Medical History Relation Name Comments Hearing loss Brother ronald Depression Daughter yvette Mental illness Daughter yvette Alcohol abuse Father dad Cancer Father dad Lung cancer Father dad COD at age 60 Breast cancer Father's Sister Heart attack Maternal Grandfather J Luis Arthritis Mother mom Breast cancer Mother mom Cancer Mother mom Diabetes Mother mom Heart failure Mother mom COD at age 83 Hypertension Mother mom also, cousins Stroke Mother mom Diabetes Mother's Brother jose Mental illness Mother's Brother jose Mental illness Mother's Sister vera Anemia Sister edda Relation Name Status Comments Brother ronald Daughter yvette Father dad (Age 60) Father's Sister Maternal Grandfather J Luis Mother mom (Age 83) Mother's Brother jose Mother's Sister vera Sister edda Social History Tobacco Use Types Packs/Day Years [...] on file Legal Sex Female 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 Gender Identity Female 11/07/2020 6:15 AM CDT Sexual Orientation Straight 11/07/2020 6: 15 AM CDT Occupation Industry Job Start Date Job End Date retired Not on file Not on file Not on file Obstetrics History Para Term AB IAB SAB Ectopic Multiple Livin g Live Births 6 2 2 0 4 3 1 0 0 2 2 Date Outcome GA Total Labor Labor/2nd/3rd Weight Sex Type Anes PTL Marybeth A1 A5 Name Clin Term Term SAB IAB IAB IAB Last Filed Vital Signs Vital Sign Reading Time Taken Comments Blood Pressure 120/68 10/29/2023 3:12 PM PAYROLL PROCESSOR Pulse 82 10/29/2023 3:12 PM PAYROLL PROCESSOR Temperature 37.1 C (98.7 F) 05/11/2019 1:45 PM CDT Respiratory Rate 16 05/11/2019 1:45 PM CDT Oxygen Saturation 96% 10/29/2023 3:12 PM PAYROLL PROCESSOR Inhaled Oxygen Concentration - - Weight 85 kg (187 lb 8 oz) 10/29/2023 3:12 PM CS T Height 163.8 cm (5' 4.5 ) 10/29/2023 3:12 PM PAYROLL PROCESSOR Body Mass Index 31.69 10/29/2023 3:12 PM PAYROLL PROCESSOR Plan of Treatment Health Maintenance Due Date Last Done Comments Breast Cancer Screening-Mammogram 1953 Colon Cancer Screening-Colonoscopy 1953 Depression Screening 1953 Fall Risk Assessment 1953 Hepatitis C Screening 1953 Osteoporosis Screening-Bone Density Scan 1953 DTaP/Tdap/Td Vaccine (1 - Tdap) 1964 Hepatitis B Screening 1971 Pneumococcal vaccine 65+ (1 of 2 - PCV) 1972 Zoster Vaccine (1 of 2) 2003 Well Visit 65+ 03/17/2019 03/17/2018, 02/21/2017 Covid-19 Vaccine (2023-2 5 season) 2024 06/09/2023, 07/15/2022, 01/21/2022, Additional history exists Influenza Vaccine (#1) 2024 , 07/15/2022, 06/28/2021, Additional history exists Insurance MDCR HMO REF [facility] Address: [address] [address] [place] [address] MEDICARE SOLUTIONS [facility] Address: [address] [address] [place] [address] MEDICARE SOLUTIONS [facility] Address: [address] [address] [place] [address] Care Teams Police Magistrate Relationship Specialty Start Date End Date Sunny Bai MD [address] [place] [address] PCP - General Family Medicine 02/21/17 Franklin Sorensen MD [address] [facility] [address] [place] [address] Medical Oncologist/Commercial Account Executive Hematology and Oncology 05/08/19
--- NOTE | 2024-10-29 14:38 | ECG_ITS ---
Test Date: 2024-10-29 14:52:34 Measurements Intervals [place] Rate: 70 P: 35 IA: 181 QRS: 49 QRSD: 102 T: 16 QT: 356 QTc: 387 Interpretive Statements SINUS RHYTHM NONSPECIFIC T-WAVE ABNORMALITY No previous ECG available for comparison Electronically Signed On 10-30-2024 16:15:40 SODA FOUNTAIN MANAGER by Carson Lew M.D.
[2024-10-29 15:44] LABS: Anion Gap 7 mmol/L (4-12); Blood Urea Nitrogen 17 mg/dL (7-17); Calcium 9.7 mg/dL (8.4-10.2); Carbon Dioxide 27 mmol/L (22-30); Chloride 104 mmol/L (98-107); Estimated Glomerular Filt Rate > 60; Glucose 130 mg/dL (65-110); Potassium 3.6 mmol/L (3.4-5.0); Sodium 138 mmol/L (137-145)
== END 2024-10-29 10:20 | disposition home or self-care (01) ==
PROVIDERS: Anesthesiology; PCP Family Medicine; Visit Provider Anesthesiology Pain Medicine
DX: I10 Essential (primary) hypertension (principal); Z01.818 Encounter for other preprocedural examination
CPT/HCPCS: 36415; 80048; 93005

== ENCOUNTER 2024-11-03 01:11 | Day surgery (SDC) | payer MEDICARE, SELFPAY ==
--- NOTE | 2024-10-22 14:14 | PC.NURSE ---
Report to the Outpatient Waiting Room, entrance under the green pavilion located off [facility], at time _6 AM on date _11/03/24 . Planned Procedure Time: __7:30 AM .? Time changes happen often and if your time is changed the preop area will call you the afternoon before. - You and your visitor will be asked to self-screen and do not enter if you have any COVID symptoms. Please call surgeon if you need to reschedule. - A mask is optional within the hospital at this time. NOTHING TO EAT OR DRINK AFTER MIDNIGHT PER DR GUZMAN Take only the following medications with a SIP of water on the morning of surgery: _INHALERS,,AMLODIPINE,DULOXETINE,GABAPENTIN.METOPROLOL,OXYCODONE IF NEEDED DO NOT STOP ANY OF YOUR OTHER PRESCRIPTION MEDICATIONS PRIOR TO SURGERY EXCEPT THE FOLLOWING Hold all vitamins and supplements for 3 days per anesthesiologist.10/30/24 Medications to discontinue per physician ASPIRIN/DICLOFENAC HOLD7 DAYS PRE OP PER DR HOLLIS Date to take last dose 10/26/24 Please no make-up, nail khmer, hairspray, perfume, deodorant, or body powder the day of surgery.? No jewelry (including any body piercings) or valuables the day of surgery, leave them at home.? Please take a shower or bath the night before, AND the morning of, surgery with an antibacterial soap.? Wear comfortable, loose fitting clothing.? Children are encouraged to wear pajamas. - Jewelry must be removed prior to entering the operating room.? Rings and piercings that are not removed may be cut off. - The hospital will not accept responsibility for valuables.? - Please leave all valuables, including medications, at home the day of surgery. If you are going home after surgery, a licensed residential driver must drive you home.? - NO public transportation without another adult if you receive anesthesia. - We recommend that an adult stay with you for 24 hours following discharge. - We also recommend that you do not drive, make important decision, drink alcoholic beverages, or take any drugs that were not prescribed by your health care provider for at least 24 hours after your discharge time. Follow any additional instructions given to you from your surgeon. Telephone instructions given to __PATIENT and asked if any additional questions and then verbalized understanding. Patient advised to call surgeon office or pre surgery nurse liaison [phone] if any additional questions.
[2024-10-22 14:48] VITALS: BMI 31.2
[2024-11-03] VITALS (8 sets, daily range): BP systolic 123–149; BP diastolic 57–97; PULSE 63–77; RESP 14–20; TEMP 36.3–36.9; O2SAT 94–100; BMI 29.9
--- NOTE | ~2024-11-03 | XR_ITS ---
EXAMINATION: XR fluoroscopy no charge DATE: 11/03/2024 10:28 INDICATION: Vertebrogenic low back pain. TECHNIQUE: 31 intraoperative fluoroscopic views of the lumbar spine were obtained. I was not present. Fluoroscopy exposure time was 3 minutes and 29 seconds COMPARISON: Lumbar spine MRI 08/07/2024 FINDINGS: There is severe lumbar spondylosis. Needle are advanced for percutaneous transpedicular int raosseous basivertebral nerve thermal radiofrequency ablation at multiple levels. IMPRESSION: 1. Severe lumbar spondylosis. Reviewed, dictated and finalized at location B.
--- OUTSIDE RECORDS SUMMARY | 2024-11-03 01:13 | XMS_ITS | Referral Summary ---
Author Organization [facility] [address] Address [address] [place] [address] Phone Care Team Providers Care On Air Announcer Name Role Phone Sunny Bai MD Primary Care Provider Franklin Sorensen MD Unavailable [phone] Allergies Active Allergy Reactions Criticality Noted [...] mg extended release tabletIndications:Co ronary atherosclerosis of [place] coronary artery TAKE 1 TABLET BY MOUTH DAILY 100 tablet 2 4 Active rosuvastatin (CRESTOR) 10 mg tabletIndications:Co ronary atherosclerosis of [place] coronary artery TAKE 1 TABLET BY MOUTH [...] on file Legal 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 Gender Identity Female 11/07/2020 6:15 AM CDT Sexual Orientation Straight 11/07/2020 6: 15 AM CDT Occupation Industry Job Start Date Job End Date retired Not on file Not on file Not on file Last Filed Vital Signs Vital Sign Reading Time Taken Comments Blood Pressure 120/68 10/29/2023 3:12 PM SALES TRAINER Pulse 82 10/29/2023 3:12 PM SALES TRAINER Temperature 37.1 C (98.7 F) 05/11/2019 1:45 PM CDT Respiratory Rate 16 05/11/2019 1:45 PM CDT Oxygen Saturation 96% 10/29/2023 3:12 PM SALES TRAINER Inhaled Oxygen Concentration - - Weight 85 kg (187 lb 8 oz) 10/29/2023 3:12 PM CS T Height 163.8 cm (5' 4.5 ) 10/29/2023 3:12 PM SALES TRAINER Body Mass Index 31.69 10/29/2023 3:12 PM SALES TRAINER Plan of Treatment Not on file Insurance O REF [facility] Address: [address] [place] [phone] MEDICARE SOLUTIONS [facility] Address: [address] [place] [phone] MEDICARE SOLUTIONS Care Teams On Air Announcer Relationship Specialty Start Date End Date Sunny Bai MD [address] [place] [address] PCP - General Family Medicine 02/21/17 Franklin Sorensen MD [address] [facility] [address] [place] [address] Medical Oncologist/Home Theatre Technician Hematology and Oncology 05/08/19
--- OUTSIDE RECORDS SUMMARY | 2024-11-03 01:13 | XMS_ITS | Patient Health Summary ---
Author Organization [facility] Address [address] [place] [address] Care Team Providers Care Creative Manager Name Role Phone Sunny Bai MD Primary Care Provider [phone] Note from [facility],non-owned Affiliates and Associated Physician Practices is amultiple site organization consisting of ambulatory clinics and hospital sitesin [place], [place], [place] and [place]. This disclosure is being madepursuant to the Care Everywhere program and may not contain all information available regarding this patient. Last updated 18.[facility] Allergies * Penicillins(Rash) -Medium Criticality Immunizations * INFLUENZA VACCINE, QUADR. (FLUZONE; FLULAVAL; FLUARIX; AFLURIA QUADRIVALENT; 6MO+), 0.5 ML (IIV4)(Given 06/01/2020) Social History Tobacco Use Types Packs/Day Years Used Date Smoking Tobacco: Never Assessed Sex and Gender Information Value Date Recorded Sex Assigned at Not on file Gender Identity Not on file Sexual Orientation Not on file Care Teams Creative Manager Relationship Specialty Start Date End Date Sunny Bai MD [address] [place] [address] PCP - General Family Medicine 06/19/24
--- OUTSIDE RECORDS SUMMARY | 2024-11-03 01:13 | XMS_ITS | CONTINUITY OF CARE DOCUMENT ---
Author Name abraham rosario Address Unknown Organization [facility] Address [address] [place] [address] Phone [phone] Care Team Providers Care Tanbark Peeler Name Role Phone Flynn Beltrán MD Unavailable [phone] Flynn Beltrán MD Unavailable [phone] INSURANCE PROVIDERS Payer name Policy type / Coverage type [place] red green party ID AARP MEDICARE ADVANTAGE ST 0 003 (HMO POS) Medicare [id number]
--- OUTSIDE RECORDS SUMMARY | 2024-11-03 01:13 | XMS_ITS | Referral Summary ---
Author Organization [facility] Address [address] [place] [address] Care Team Providers Care Motivational Speaker Name Role Phone Sunny Bai MD Primary Care Provider [phone] Source Comments [facility],non-owned Affiliates and Associated Physician Practices is amultiple site organization consisting of ambulatory clinics and hospital sitesin [place], [place], [place] and [place]. This disclosure is being madepursuant to the Care Everywhere program and may not contain all information available regarding this patient. Last updated 18.[facility] Allergies Active Allergy Reactions Criticality Noted Date [...] of Treatment Not on file Care Teams Motivational Speaker Relationship Specialty Start Date End Date Sunny Bai MD [address] [address] [address] [place] [address] PCP - General Family Medicine 06/19/24
--- OUTSIDE RECORDS SUMMARY | 2024-11-03 01:13 | XMS_ITS | Clinical Summary ---
Author Organization [facility] Address [address] [facility], [place] [address] Phone Care Team Providers Care Trucker Name Role Phone Maranda Forbes MD Primary Care Provider [phone] Allergies No known active allergies Medications fluticasone-digna [...] Take 50 mg by mouth nightly. Active [place]-3 Fatty Acids (FISH OIL PO) Take by [...] age to complete this topic Care Teams Trucker Relationship Specialty Start Date End Date Maranda Forbes MD [address] [place] [address] PCP - General Family Medicine 03/14/16
--- OUTSIDE RECORDS SUMMARY | 2024-11-03 01:13 | XMS_ITS | Continuity of Care Document ---
Author Organization [facility] Address [address] [place] [address] Phone Care Team Providers Care Distribution Lead Name Role Phone Lilliam Valdez Unavailable Unavailable Advance Directives Directive Yes / No Effective Date File Name No Information Encounters Encounter Description Practice Location Reason(s) For Visit Diagnoses Date Provider Providers Copied on Encounter [facility], [address], [place], [place], [id number], [place] tel:[phone] [facility] No Information [address] [facility] , [address], [place], [address], [place]. tel:[phone] Family History Family Member Type Diagnosis Age At Onset No Information Payers Payer name Insurance type Covered green party ID Authoriza tion(s) No Information Social History [...]
--- OUTSIDE RECORDS SUMMARY | 2024-11-03 01:13 | XMS_ITS | Clinical Summary ---
Author Organization [facility] [address] Address [address] [place] [address] Phone Care Team Providers Care Fish Bin Tender Name Role Phone Sunny Bai MD Primary Care Provider Franklin Sorensen MD Unavailable [phone] Allergies Active Allergy Reactions Criticality Noted [...] mg extended release tabletIndications:Co ronary atherosclerosis of [place] coronary artery TAKE 1 TABLET BY MOUTH DAILY 100 tablet 2 4 Active rosuvastatin (CRESTOR) 10 mg tabletIndications:Co ronary atherosclerosis of [place] coronary artery TAKE 1 TABLET BY MOUTH [...] Comments Hearing loss Brother ronald Depression Daughter kanwal Mental illness Daughter kanwal Alcohol abuse Father dad Cancer Father dad [...] Relation Name Status Comments Brother ronald Daughter kanwal Father dad (Age 60) Father's Sister Maternal [...] on file Legal Sex Female 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 Gender Identity Female 11/07/2020 6:15 AM CDT [...] Comments Blood Pressure 120/68 10/29/2023 3:12 PM TEACHER DANCING Pulse 82 10/29/2023 3:12 PM TEACHER DANCING Temperature 37.1 C (98.7 F) 05/11/2019 1:45 PM CDT Respiratory Rate 16 05/11/2019 1:45 PM CDT Oxygen Saturation 96% 10/29/2023 3:12 PM TEACHER DANCING Inhaled Oxygen Concentration - - Weight 85 kg (187 lb 8 oz) 10/29/2023 3:12 PM CS T Height 163.8 cm (5' 4.5 ) 10/29/2023 3:12 PM TEACHER DANCING Body Mass Index 31.69 10/29/2023 3:12 PM TEACHER DANCING Plan of Treatment Health Maintenance Due Date [...] Additional history exists Insurance MDCR HMO REF MEDICARE SOLUTIONS MEDICARE SOLUTIONS Care Teams Fish Bin Tender Relationship Specialty Start Date End Date Sunny Bai MD [address] [place] [address] PCP - General Family Medicine 02/21/17 Franklin Sorensen MD [address] [facility] [address] [place] [address] Medical Oncologist/Dot Etcher Apprentice Hematology and Oncology 05/08/19
--- OUTSIDE RECORDS SUMMARY | 2024-11-03 01:13 | XMS_ITS | Clinical Summary ---
Author Organization [facility] Address [address] [place] [address] Care Team Providers Care Swatch Folder Name Role Phone Sunny Bai MD Primary Care Provider [phone] Source Comments [facility],non-owned Affiliates and Associated Physician Practices is amultiple site organization consisting of ambulatory clinics and hospital sitesin [place], [place], [place] and [place]. This disclosure is being madepursuant to the Care Everywhere program and may not contain all information available regarding this patient. Last updated 18.[facility] Allergies Active Allergy Reactions Criticality Noted Date [...] VACCINE (1 of 2) 2003 COVID-19 VACCINE (2023-2 5 season) 2024 INFLUENZA VACCINE (#1) 2024 [...] age to complete this topic Care Teams Swatch Folder Relationship Specialty Start Date End Date Sunny Bai MD [address] [place] [address] PCP - General Family Medicine 06/19/24
[2024-11-03] MEDS: LACTATED RINGERS 1,000 ML 30 ML IV CONT ×2 (07:15→10:28)
--- NOTE | 2024-11-03 07:17 | WPDANESEPPF ---
Anes - Initial Pre Proc Eval Procedure: Operation Date: 11/03/24 08:30 Proposed Procedures p Intracept Procedure at L4, L5, S1 Under Fluoroscopic Guidance - Harrison Hayden MD Date/Time: 11/03/24 07:17 Surgeon: Harrison Hayden MD Pre Op Diagnosis: vertebrogenic low back pain Patient Data Age: 69 Gender: F Height: 1.64 m Weight: 83.95 kg Allergies Allergy/AdvReac Type Severity Reaction Status Date / Time erythromycin base Allergy Intermediate Nausea Verified 10/22/24 14:12 Penicillins Allergy Intermediate Rash Verified 10/22/24 14:12 haloperidol Allergy Mild EYES QUIT Verified 10/22/24 14:12 WORKING varenicline (From Chauffeur Prive) AdvReac Severe suicidal Verified 10/22/24 14:12 ideations Home Medications ?Medication ?Instructions ?Recorded ?Confirmed ?Type cetirizine 10 mg tablet (Zyrtec) 10 mg PO HS 07/15/20 10/26/24 History aspirin 81 mg chewable tablet 81 mg PO DAILY@0800 30 days #30 07/19/20 10/26/24 Rx (Children's Aspirin) tabs rosuvastatin 10 mg tablet (Crestor) 10 mg PO QAM 30 days #30 tabs 07/19/20 10/26/24 Rx calcium 600 mg capsule 600 mg PO QTUTH 09/08/20 10/26/24 History flaxseed oil 1,000 mg capsule 1,000 mg PO 3XW 09/08/20 10/26/24 History fsdfgcwsoxh-nolkqcjsd-cmh C-Mn 500 1 cap PO 2XW 09/08/20 10/26/24 History mg-400 mg capsule cholecalciferol (vitamin D3) 10 10 mcg PO DAILY 03/30/22 10/26/24 History mcg (400 unit) capsule coenzyme Q10 10 mg capsule (Co 10 mg PO 3XW 03/30/22 10/26/24 History Q-10) vitamin E (dl, acetate) 45 mg (100 45 mg PO 2XW 03/30/22 10/26/24 History unit) capsule metoprolol succinate 50 mg 50 mg PO DAILY 04/18/22 10/26/24 History tablet,extended release 24 hr multivitamin 1 tablet PO DAILY 04/18/22 10/26/24 History benazepril 20 mg tablet 20 mg PO DAILY 04/20/24 10/26/24 History budesonide-formoterol HFA 160 2 puff inhalation DAILY 04/20/24 10/26/24 History mcg-4.5 mcg/actuation aerosol inhaler (Symbicort) chlorthalidone 25 mg tablet 12.5 mg PO DAILY 04/20/24 10/26/24 History fenofibrate 160 mg tablet 160 mg PO DAILY 04/20/24 10/26/24 History montelukast 10 mg tablet 10 mg PO DAILY #90 tabs 05/15/24 10/26/24 Rx (Singulair) diclofenac sodium 75 mg 75 mg PO BID #180 tabs 06/18/24 10/26/24 Rx tablet,delayed release gabapentin 300 mg capsule 300 mg PO Q8H 30 days #90 caps 06/22/24 10/26/24 Rx duloxetine 30 mg capsule,delayed 30 mg PO DAILY #90 caps 07/20/24 10/26/24 Rx release albuterol sulfate 2.5 mg/3 mL 2.5 mg (3 mL) inhalation Q6H #75 mL 07/30/24 10/26/24 Rx (0.083 %) solution for nebulization amlodipine 5 mg tablet See Rx Instructions .Route 08/17/24 10/26/24 Rx .COMPLEX #100 tabs albuterol sulfate 90 mcg/actuation 1 inh inhalation Q4H PRN shortness 09/07/24 10/26/24 Rx aerosol inhaler of breath or wheezing #8.5 grams lidocaine 5 % topical patch See Rx Instructions .Route 10/12/24 10/26/24 Rx .COMPLEX #30 patches oxycodone-acetaminophen 5 mg-325 1 tablet PO Q8H PRN pain #90 tabs 10/12/24 10/26/24 Rx mg tablet (Percocet) cyclobenzaprine 10 mg tablet See Rx Instructions .Route 10/16/24 10/26/24 Rx .COMPLEX #90 tabs duloxetine 60 mg capsule,delayed 60 mg PO HS #90 caps 10/16/24 10/26/24 Rx release Patient hx anesthesia problems: none Family hx anesthesia problems: none Results Review: All pre-operative results and documents have been reviewed as part of the pre-operative evaluation. PENDING SALE TO [facility] Past Medical History Medical History Vertebrogenic low back pain History of rectal fissure (~1981) Depression Old CT (myocardial infarction) CAD (coronary artery disease) Hypertension with heart disease Onychomycosis Beta thalassemia Surgical History Surgical History History of tooth extraction H/O: S/P coronary artery stent placement (~2019) History of section, classical (~1980) Family History Family History Mother Diabetes mellitus Family history of diabetes mellitus in first degree relative Family history of malignant neoplasm of breast in first degree relative Family history of coronary artery disease Hypertension Acute myocardial infarction Cerebrovascular accident Congestive heart failure Father Family history of lung cancer Alcoholism Other Asthma Depression Grandparent Hypertension Depression Heart disease Cerebrovascular accident Social History Social History Smoking packs per day: 0.75 Smoking cigarettes per day: 15.0 Years smoked: 50 Smoking pack-years: 37.50 Smoking status: Current every day smoker Tobacco type: cigarettes Second hand tobacco smoke exposure: No Smoking end date: 08/26/08 Additional smoking assessment comments: attempting to quit, she has tried patch with skin irritation Alcohol intake: never Drinks per week: 6 Alcohol use details: DRINKS Substance use: never Substance use type: does not use Do You Feel Safe in your Home?: Yes Lack of Transportation: No Lack of Food: Never True Current Housing: I Have Housing Concerned About Future Housing: No Difficulty Paying Gas/Electric Bills: YES Difficulty Paying for Meds: YES Currently Unemployed: No Education: Bachelor's Degree Difficulty w/ Childcare or Family Care: No Living arrangements: with family Occupation/Education: retired Gender identity (if verbalized by the patient): Female Spiritual care concerns: No Anes - Eval Final PreProcedure Day of Procedure 11/03/24 07:17 Patient weight: obese Heart: regular rate and rhythm Lungs: clear to auscultation Airway: Mallampati scale class II Neurological: alert and oriented Last oral intake: >/= 8 hours ASA classification: III Emergent: no Anesthetic plan: proceed Anesthesia type and monitoring: general ETT and standard monitoring Results Review: All pre-operative results and documents have been reviewed as part of the pre-operative evaluation. Informed Consent: The patient's anesthetic plan and its attendant risks and benefits were discussed with the patient/family/POA. Questions were solicited and answers provided to the satisfaction of the patient/family/POA.
--- NOTE | 2024-11-03 08:26 | PM.HPGS ---
History of Present Illness History of Present Illness Consent: Risks, benefits, and alternatives have been discussed and questions answered. Patient agrees to proceed with procedure. Chief complaint: vertebrogenic low back pain Narrative: Karen Avalos is a 69 year old female with chronic, recalcitrant and disabling bilateral lumbosacral vertebrogenic back pain secondary to degenerative spondylosis, Modic type 1/2 endplate change with failure to respond to aggressive conservative measures including PT, oral and topical analgesics, opioid and nonopioid analgesics, rest, time and activity/behavioral modification over the past 1-2 years who presents for percutaneous transpedicular intraosseous basivertebral nerve ablation (Intracept procedure) of the L4, L5, S1 vertebral levels under fluoroscopic guidance, Review of Systems Review of Systems: Patient denies any new infectious, allergic, cardiopulmonary, neurologic or constitutional symptoms or changes in activity tolerance or exercise capacity including new or progressive SOB/MERRITT, peripheral edema, productive cough, dysuria, nausea/vomiting, diarrhea, weight change, fevers/chills/night sweats, new or progressive neurologic deficit, cognitive or mood changes since last seen, except as documented in the HPI. All systems reviewed & are unremarkable except as noted in HPI and below PMFSH Past Medical History Medical History Vertebrogenic low back pain History of rectal fissure (~1981) Depression Old SD (myocardial infarction) CAD (coronary artery disease) Hypertension with heart disease Onychomycosis Beta thalassemia Surgical History Surgical History History of tooth extraction H/O: S/P coronary artery stent placement (~2019) History of section, classical (~1980) Family History Family History Mother Diabetes mellitus Family history of diabetes mellitus in first degree relative Family history of malignant neoplasm of breast in first degree relative Family history of coronary artery disease Hypertension Acute myocardial infarction Cerebrovascular accident Congestive heart failure Father Family history of lung cancer Alcoholism Other Asthma Depression Grandparent Hypertension Depression Heart disease Cerebrovascular accident Social History Social History Smoking packs per day: 0.75 Smoking cigarettes per day: 15.0 Years smoked: 50 Smoking pack-years: 37.50 Smoking status: Current every day smoker Tobacco type: cigarettes Second hand tobacco smoke exposure: No Smoking end date: 08/26/08 Additional smoking assessment comments: attempting to quit, she has tried patch with skin irritation Alcohol intake: never Drinks per week: 6 Alcohol use details: DRINKS Substance use: never Substance use type: does not use Do You Feel Safe in your Home?: Yes Lack of Transportation: No Lack of Food: Never True Current Housing: I Have Housing Concerned About Future Housing: No Difficulty Paying Gas/Electric Bills: YES Difficulty Paying for Meds: YES Currently Unemployed: No Education: Bachelor's Degree Difficulty w/ Childcare or Family Care: No Living arrangements: with family Occupation/Education: retired Gender identity (if verbalized by the patient): Female Spiritual care concerns: No Meds Home Medications and Allergies Home Medications ?Medication ?Instructions ?Recorded ?Confirmed ?Type cetirizine 10 mg tablet (Zyrtec) 10 mg PO HS 07/15/20 10/26/24 History aspirin 81 mg chewable tablet 81 mg PO DAILY@0800 30 days #30 07/19/20 11/03/24 Rx (Children's Aspirin) tabs rosuvastatin 10 mg tablet (Crestor) 10 mg PO QAM 30 days #30 tabs 07/19/20 11/03/24 Rx calcium 600 mg capsule 600 mg PO QTUTH 09/08/20 11/03/24 History flaxseed oil 1,000 mg capsule 1,000 mg PO 3XW 09/08/20 11/03/24 History cxavsujowya-dqvxlvrwc-znh C-Mn 500 1 cap PO 2XW 09/08/20 11/03/24 History mg-400 mg capsule cholecalciferol (vitamin D3) 10 10 mcg PO DAILY 03/30/22 11/03/24 History mcg (400 unit) capsule coenzyme Q10 10 mg capsule (Co 10 mg PO 3XW 03/30/22 11/03/24 History Q-10) vitamin E (dl, acetate) 45 mg (100 45 mg PO 2XW 03/30/22 11/03/24 History unit) capsule metoprolol succinate 50 mg 50 mg PO DAILY 04/18/22 11/03/24 History tablet,extended release 24 hr multivitamin 1 tablet PO DAILY 04/18/22 11/03/24 History benazepril 20 mg tablet 20 mg PO DAILY 04/20/24 11/03/24 History budesonide-formoterol HFA 160 2 puff inhalation DAILY 04/20/24 10/26/24 History mcg-4.5 mcg/actuation aerosol inhaler (Symbicort) chlorthalidone 25 mg tablet 12.5 mg PO DAILY 04/20/24 11/03/24 History fenofibrate 160 mg tablet 160 mg PO DAILY 04/20/24 11/03/24 History montelukast 10 mg tablet 10 mg PO DAILY #90 tabs 05/15/24 11/03/24 Rx (Singulair) diclofenac sodium 75 mg 75 mg PO BID #180 tabs 06/18/24 11/03/24 Rx tablet,delayed release gabapentin 300 mg capsule 300 mg PO Q8H 30 days #90 caps 06/22/24 11/03/24 Rx duloxetine 30 mg capsule,delayed 30 mg PO DAILY #90 caps 07/20/24 11/03/24 Rx release albuterol sulfate 2.5 mg/3 mL 2.5 mg (3 mL) inhalation Q6H #75 mL 07/30/24 10/26/24 Rx (0.083 %) solution for nebulization amlodipine 5 mg tablet See Rx Instructions .Route 08/17/24 11/03/24 Rx .COMPLEX #100 tabs albuterol sulfate 90 mcg/actuation 1 inh inhalation Q4H PRN shortness 09/07/24 10/26/24 Rx aerosol inhaler of breath or wheezing #8.5 grams lidocaine 5 % topical patch See Rx Instructions .Route 10/12/24 10/26/24 Rx .COMPLEX #30 patches oxycodone-acetaminophen 5 mg-325 1 tablet PO Q8H PRN pain #90 tabs 10/12/24 11/03/24 Rx mg tablet (Percocet) cyclobenzaprine 10 mg tablet See Rx Instructions .Route 10/16/24 10/26/24 Rx .COMPLEX #90 tabs duloxetine 60 mg capsule,delayed 60 mg PO HS #90 caps 10/16/24 11/03/24 Rx release Allergies Allergy/AdvReac Type Severity Reaction Status Date / Time Penicillins Allergy Intermediate Rash Verified 11/03/24 08:17 haloperidol Allergy Mild EYES QUIT Verified 11/03/24 08:17 WORKING varenicline (From [employer]) AdvReac Severe suicidal Verified 11/03/24 08:17 ideations erythromycin base AdvReac Intermediate Nausea Verified 11/03/24 08:18 Vital Signs Vital Signs - 24 hr 11/03/24 07:20 Temperature 98.4 F Pulse Rate 70 Respiratory Rate 16 Blood Pressure 138/57 L Pulse Oximetry 98 Oxygen Delivery Room Air Exam Narrative: The patient's physical exam is essentially unchanged from prior examination on 08/01/24. Specifically, patient demonstrates normal lung capacity, tidal volume and respiratory rate without wheezes, crackles, rales or rubs. Heart rate and rhythm are regular without murmurs, gallops or rubs. No JVD. Pulses 2+ globally without increasing peripheral edema. AAOx3 with no evidence of confusion, intoxication or altered mental state, NC/AT without acute distress or altered consciousness. Speech, cognition, mood, insight and judgment at baseline and within normal limits. Assessment and Plan Assessment and plan (1) Vertebrogenic low back pain: Code(s): M54.51 - Vertebrogenic low back pain Status: Acute (2) Chronic pain: Code(s): G89.29 - Other chronic pain Status: Acute Plan proceed as planned with percutaneous transpedicular intraosseous basivertebral nerve ablation (Intracept procedure) of the L4, L5, S1 vertebral levels under fluoroscopic guidance,
--- NOTE | 2024-11-03 08:28 | WPDHPUPDATE1 ---
History and Physical Update Update Date/Time: 11/03/24 08:28 History and Physical has been reviewed, including an updated exam of the patient. There are NO changes in the patient's condition. Risks, benefits, and alternatives have been discussed and questions answered. Patient agrees to proceed with procedure.
--- NOTE | 2024-11-03 08:29 | W.PM.PROC2 ---
Procedure Note - Detailed Date of Procedure 11/03/24 Pre-op Diagnosis vertebrogenic low back pain Post-op Diagnosis Same Procedure Performed Percutaneous transpedicular intraosseous basivertebral nerve thermal radiofrequency ablation (Intracept procedure) at [L3, L4, L5, S1] under fluoroscopic guidance. Surgeon Harrison Hayden MD Wire Brush Maker None. Anesthesia General (GETA] in the [prone] position with infiltration of local anesthetic. ) Description of Procedure INDICATION FOR PROCEDURE: Patient has Modic-type I/II inflammatory degenerative changes of the endplates supplied by the basivertebral nerve at each level listed (as documented on recent MRI) resulting in ycbhohfs-jd-[id number] chronic axial low back pain that is aggravated by activity. They are significantly limited in their daily and/or work-related activities as a result, including sitting, standing, lifting/carrying and sleeping, with failure to respond to and/or tolerate extensive efforts at more conservative management (i.e. oral and topical analgesics including NSAIDs, acetaminophen and opioids, Physical Therapy and modalities, time/rest, interventional procedures/corticosteroid injections) for greater than 6 months prior to today's procedure establishing medical necessity for this well-studied and FDA-approved pain-relieving procedure. INFORMED CONSENT: Procedure was discussed in detail with the patient at a previous visit and at the time of surgery. During this discussion, the risks, benefits, and alternatives to the procedure, including doing nothing, were thoroughly described to the patient, who expressed explicit understanding and consent to proceed. Specific risks discussed with the patient included, but were not limited to the risk of serious local or systemic infection, skin burn/scarring, major or minor bleeding/bruising, allergic reaction to medications or materials, inadvertent lung or other organ injury, new or worsening spinal fracture, inadvertent thermal or mechanical nerve or spinal cord injury resulting in increased pain, weakness, numbness or loss of bowel or bladder control, the need for repeat or additional surgery, inadvertent dural puncture resulting in acute or chronic CSF leak and post-dural puncture headache, failure to treat pain, and risks associated with general anesthesia in the prone position including eye, dental, joint, nerve, spine or soft tissue injury/pain related to positioning, heart attack, respiratory failure, aspiration, pneumonia, DVT/PE or thrombosis, hemorrhagic or ischemic stroke, hypoxia, hypo- or hypertension, seizure, coma and . Patient understands these risks and agrees that the opportunity for benefit outweighs the potential risk of harm. Procedure specific informed consent form was read, reviewed, signed by the patient and surgeon and witnessed in the pre-operative area. All pertinent questions were asked and answered to the patient's satisfaction. Surgical site was pre-treated with chlorhexidine wipes. All materials required for the procedure were available and site and side of procedure was marked prior to procedure start. Appropriate timeout was conducted by all participants in the OR (patient's ID, procedure to be performed, procedure site and side, allergies and appropriate medications including pre-operative antibiotics were verified) prior to incision. PROCEDURE IN DETAIL: After full informed consent and adequate IV access was obtained without difficulty; the patient was escorted to the procedural suite. ASA standard monitors were applied and utilized throughout the case. Prophylactic antibiotics were administered prior to procedure start. GETA was initiated without difficulty or event. Eyes were protected. Patient was converted to the prone position in optimal flexion using pillows under the abdomen, hips and ankles. Pressure points were padded, cervical spine and joints were placed in neutral position. Eyes, breasts and genitals were evaluated and protected as appropriate. The thoracolumbar spine to the sacrum was prepared in the usual manner using alcohol scrub followed by broad application of ChloraPrep, and allowed to dry completely for over 3 minutes. Surgical site and C-arm was sterilely draped in the typical fashion. Aseptic technique and strict fluoroscopic guidance was utilized throughout. Fluoroscope was moved into position to visualize the vertebral bodies of interest in the AP and lateral plane, obtaining true linear projections of the endplates at each level, and was rotated in the ipsilateral oblique view approximately 35 degrees from true AP to visualize the vertebrae with respective ipsilateral facet joints visualized bisecting the superior disk space at the midpoint of the vertebral body. The superolateral border of the pedicle of each level treated was identified. After adequate general anesthesia was confirmed, the skin entry point was located and infiltrated with an adequate amount of a 1:1 admixture of 0.5% preservative free bupivacaine and 2.0% preservative-free lidocaine using a 27 gauge 1.5-inch hypodermic needle after negative aspiration for blood or bodily fluid. Appropriate introducer cannula trajectory was identified in the AP, oblique and lateral views, and local anesthesia was extended to periosteum in a similar fashion at each level treated using a 3.5 inch, 22-gauge Quincke spinal needle. A stab skin decision was made with a #11 scalpel blade and an 8-gauge introducer cannula with beveled tip was then introduced through the skin, subcutaneous tissue and paraspinal muscle until contact was made with the bony surface of the pedicle at the target level. Appropriate position was confirmed in both the AP and lateral views. Using a 24-ounce surgical mallet, the trocar was advanced through the left pedicle to the posterior aspect of the vertebral body using a combination of AP and lateral views to ensure appropriate travel through the pedicle without breach of its medial wall or entry into the epidural/neuroforaminal space. Once the trocar had entered the posterior aspect of the S1 vertebral body, the trocar was removed from the cannula and the curved cannula assembly was inserted followed by replacement of the original straight stylette with the Nitinol J ? stylette without difficulty. The wingnut on the device was rotated counterclockwise to its endpoint permitting excursion of the J ? stylette. The curved cannula assembly was then advanced under intermittent fluoroscopic guidance, using the surgical mallet, in 1 to 2 mm increments with observed travel anteriorly and medially through the vertebral body in both the AP and lateral views. When necessary, the J-stylette was intermittently removed and replaced with the straight stylette during advancement to reach the basivertebral nerve target near the center point of the vertebral body. Target was reached when the tip of the stylette was noted to be a minimum of 1 cm anterior to the posterior wall and approximately 30 to 50% of the posterior to anterior diameter of the targeted vertebral body and at the midpoint of the distance between the superior and inferior endplates, with tip of the stylette crossing midline as represented by the spinous process in the carefully aligned AP projection. J-stylette was then removed and the bipolar radiofrequency probe was connected to the generator and inserted into the introducer cannula until the proximal and distal electrodes straddled the midpoint of the vertebral body. The wingnut was then rotated clockwise to retract the PEEK sleeve and expose the proximal electrode on the radiofrequency probe. The basivertebral nerve was then ablated through activation of the probe and generator. At each level treated, ablation was performed at 85 degrees centigrade for 7 minutes using [facility]'s RFG standard intraosseous ablation algorithm while simultaneously monitoring for any sign of motor or sensory nerve stimulation. While ablative lesioning was progressing to completion at the initial level, the fluoroscope was adjusted to successively visualize the target of entry at the superolateral aspect of the pedicle at each additional level treated, (L4, L5), with each vertebral body subsequently and sequentially accessed and target nerve ablated in a similar manner modified only to accommodate for specific level, location and anatomical variation, alternating the site and side of entry to facilitate cannula placement. This was achieved in all cases without difficulty. Location of each entry point, final cannula and probe position was documented by fluoroscopy in the AP and lateral views with respective images recorded in the patient's chart. In all cases, once intraosseous access was obtained, needle tip remained intraosseous without violation of the pedicular wall, vertebral wall, neuroforamen and/or spinal canal. Once all ablations were complete, instruments were removed from the vertebral bodies without difficulty under direct visualization and fluoroscopic guidance. Pressure was held at each entry site until hemostasis was confirmed. Skin was cleaned with alcohol -soaked gauze and dried with a sterile towel. Surgical wounds were then closed with mastisol and Steri-Strips placed in a crisscrossing fashion and covered with a sterile Telfa and Tegaderm dressing. The patient was returned to the supine position and anesthesia was reversed without difficulty or event. The patient tolerated the procedure well with no evidence of complication. Patient was transported to the recovery room where they were monitored for an appropriate period of time prior to discharge. During this time, the patient demonstrated no evidence of new neurologic symptom or injury, uncontrolled pain, postsurgical or post anesthetic complication. The patient was eventually discharged with both written and verbal instructions for appropriate wound care and activity restriction and with instructions to contact the office or report directly to the emergency department if no immediate response or if after hours with any signs of urgent or emergent complication including but not limited to excessive discharge or bleeding, new focal or diffuse neurologic weakness, numbness or other sensory change in the upper or lower extremities, severe headaches, intractable nausea/vomiting, fevers, chills, night sweats, increasing pain or loss of bowel or bladder control. Patient will otherwise follow-up in person at the clinic in 7 to 10 days for wound check and reevaluation. COMPLICATIONS: None. COMMENTS: None. IV FLUIDS: On Chart. EBL: 10 ml. DRAINS: None. PACKING: None. SPECIMEN: None. Pathology None sent Complications No immediate complications Condition Stable Disposition PACU [facility] Billing Surgery - Charge Forward: Surgery Billing
[2024-11-03] MEDS: ceFAZolin 2 GM/D5W 50 ML 2 GM/50 ML BAG IVPB (08:34)
[2024-11-03] MEDS: LIDOCAINE 1% LOCAL INJ 20 ML VIAL 10 ML INFILTRATE (09:00)
[2024-11-03] MEDS: BUPIVACAINE/EPINEPHRINE 0.5% 30 ML VIAL 10 ML INFILTRATE (09:01)
[2024-11-03] MEDS: oxyCODONE HCL (*CRX) 5 MG TAB IR PO (11:36)
--- NOTE | 2024-11-03 12:19 | SUR.PHASEII ---
1215- pt. VSS, IV D/C'd and pt getting dressed. Pt ready for D/C.
== END 2024-11-03 12:25 | disposition home or self-care (01) ==
PROVIDERS: PCP Family Medicine; Visit Provider Anesthesiology Pain Medicine
PROC: (CPT 64628; principal; 2024-11-03 08:30)
DX: M54.51 Vertebrogenic low back pain (principal); G89.29 Other chronic pain; F17.210 Nicotine dependence, cigarettes, uncomplicated; E66.9 Obesity, unspecified; Z68.29 Body mass index [BMI] 29.0-29.9, adult
CPT/HCPCS: 64628; 64629 ×2; 99199; A9270; C1889; J0690; J1596; J2003; J2250; J2371; J2704; J2710; J3010; J7120

== ENCOUNTER 2025-01-22 12:18 | Outpatient (CLI) | payer MEDICARE, SELFPAY ==
--- NOTE | ~2025-01-22 | XR_ITS ---
Right Knee Technique: AP, lateral, and sunrise views were obtained. Clinical History: Arthritis Findings: No fracture or dislocation is seen. Moderate degenerative change of the lateral compartment present. There is mild degenerative change of the medial and patellofemoral compartments.. Small viviana nt effusion is seen. Impression: Degenerative changes, as detailed above. Small joint effusion. Reviewed, dictated and finalized at location . Impression: Degenerative changes, as detailed above. Small joint effusion.
--- NOTE | ~2025-01-22 | XR_ITS ---
Left Knee Technique: AP, lateral, and sunrise views were obtained. Clinical History: Arthritis Findings: No fracture or dislocation is seen. Osseous alignment is anatomic. Joint spaces are preserv ed without degenerative or erosive change. There are probable small loose bodies posteriorly, possibl y within a Tinajero's cyst.. No joint effusion is seen. Impression: Small loose bodies posteriorly, possibly within a Tinajero's cyst. Reviewed, dictated and finalized at location M. Impression: Small loose bodies posteriorly, possibly within a Tinajero's cyst.
--- NOTE | ~2025-01-22 | XR_ITS ---
XR sacrum coccyx min 2V Ordering provider: Harrison Hayden MD History: . M53.3 - Sacrococcygeal disorders, not elsewhere classified . Comparison: April 30, 2024 FINDINGS: BONES: No acute fracture or dislocation. Degenerative changes of the spine. JOINTS: The sacroiliac joint spaces shows [id number] sacroiliacs. SOFT TISSUES: Soft tissues are normal. IMPRESSION: No acute osseous abnormality sacrum and coccyx. Multilevel degenerative disc disease. Bilateral sacroiliacs. Reviewed, dictated and finalized at location A.
--- OUTSIDE RECORDS SUMMARY | 2025-01-22 12:22 | XMS_ITS | CONTINUITY OF CARE DOCUMENT ---
Author Name abraham rosario Address Unknown Organization [facility] Address [address] [place] [address] Phone [phone] Care Team Providers Care Blood Bank Specialist Name Role Phone Flynn Beltrán MD Unavailable Flynn Beltrán MD Unavailable [phone] INSURANCE PROVIDERS Payer name Policy type / Coverage type [place] red republican ID [employer] MED[employer]ARE ADV[employer]AGE ST [id number] (HMO POS) Medicare [id number]
--- OUTSIDE RECORDS SUMMARY | 2025-01-22 12:22 | XMS_ITS | Clinical Summary ---
Author Organization [facility] Address [address] [place] [address] Care Team Providers Care Account Development Associate Name Role Phone Sunny Bai MD Primary Care Provider [phone] Source Comments [facility],non-owned Affiliates and Associated Physician Practices is amultiple site organization consisting of ambulatory clinics and hospital sitesin [place], [place] and [place]. This disclosure is being madepursuant to the Care Everywhere program and may not contain all information available regarding this patient. Last updated 18.[facility] Allergies Active Allergy Reactions Criticality Noted Date Comments Penicillins Rash Medium 06/01/2020 Immunizations Immunization Administration Dates Next Due INFLUENZA VACCINE, QUADR. (F LUZONE; FLULAVAL; FLUARIX; AFLURIA QUADRIVALENT; 6MO+), 0.5 ML (IIV4) 06/01/2020 Social History Tobacco Use Types Packs/Day Years Used Date Smoking Tobacco: Never Assessed Comments Unknown Sex and Gender Information Value Date Recorded Sex Assigned at Not on file Legal Sex Female 2:34 PM CDT Gender Identity Not on file [...] VACCINE (1 - 2023-2 5 season) 2024 DEPRESSION SCREENING 08/26/2024 MEDICARE AWV CALENDAR YEAR 2024 INFLUENZA VACCINE (Season Ended) 2025 06/01/20 20 Respiratory Syncytial Virus (RSV) Vaccine Pt: or [...] to complete this topic MENINGOCOCCAL (Group B) VACC INE SHARED DECISION-MAKING Aged Out No longer eligibl e based on patient's age to complete this topic MENINGOCOCCAL GROUPS A/C/Y/W VACCINE Aged Out No longer eligible b ased on patient's age to complete this topic Insurance [place] [address] Care Teams Account Development Associate Relationship Specialty Start Date End Date Sunny Bai MD [address] [facility] [address] [place] [address] PCP - General Family Medicine 06/19/24
--- OUTSIDE RECORDS SUMMARY | 2025-01-22 12:22 | XMS_ITS | Referral Summary ---
Author Organization [facility] [address] Address [address] [place] [address] Phone Care Team Providers Care Step Finisher Name Role Phone Sunny Bai MD Primary Care Provider Franklin Sorensen MD Unavailable [phone] Allergies Active Allergy Reactions Criticality Noted [...] 9 Active chlorthalidone 25 mg tablet TK 1/2 T PO QD 5 9 Active coenzyme [...] mg extended release tabletIndications:Co ronary atherosclerosis of [place] coronary artery TAKE 1 TABLET BY MOUTH DAILY 100 tablet 2 5 Active rosuvastatin (CRESTOR) 10 mg tabletIndications:Co ronary atherosclerosis of [place] coronary artery TAKE 1 TABLET BY MOUTH DAILY 100 tablet 5 Active Active Problems Problem Noted Date Diagnosed [...] on file Legal Sex Female 7:45 PM WOOD LATHER Gender Identity Female 11/07/2020 6:15 AM CDT Sexual Orientation Straight 11/07/2020 6: 15 AM CDT Occupation Industry Job Start Date Job End Date retired Not on file Not on file Not on file Last Filed Vital Signs Vital Sign Reading Time Taken Comments Blood Pressure 120/68 10/29/2023 3:12 PM WOOD LATHER Pulse 82 10/29/2023 3:12 PM WOOD LATHER Temperature 37.1 C (98.7 F) 05/11/2019 1:45 PM CDT Respiratory Rate 16 05/11/2019 1:45 PM CDT Oxygen Saturation 96% 10/29/2023 3:12 PM WOOD LATHER Inhaled Oxygen Concentration - - Weight 85 kg (187 lb 8 oz) 10/29/2023 3:12 PM CS T Height 163.8 cm (5' 4.5) 10/29/2023 3:12 PM WOOD LATHER Body Mass Index 31.69 10/29/2023 3:12 PM WOOD LATHER Plan of Treatment Not on file Insurance [facility] MEDICARE ADVANTAGE [id number] ADVANTAGE Care Teams Step Finisher Relationship Specialty Start Date End Date Sunny Bai MD [address] [place] [address] PCP - General Family Medicine 02/21/17 Franklin Sorensen MD [address] [facility] [address] [place] [address] Medical Oncologist/Radiology Supervisor Hematology and Oncology 05/08/19
--- OUTSIDE RECORDS SUMMARY | 2025-01-22 12:22 | XMS_ITS | Continuity of Care Document ---
Author Organization [facility] Address [address] [place] [address] Phone Care Team Providers Care Vp Strategic Partnerships Name Role Phone Lilliam Valdez Unavailable Unavailable Advance Directives Directive Yes / No Effective Date File Name No Information Encounters Encounter Description Practice Location Reason(s) For Visit Diagnoses Date Provider Providers Copied on Encounter [facility], [address], [place], [place], [id number], [place] tel:[phone] SEC [facility] No Information [address] [facility] , [address], [place], [address], [place]. tel:[phone] Family History Family Member Type Diagnosis Age At Onset No Information Payers Payer name Insurance type Covered libertarian ID Authoriza tion(s) No Information Social History [...]
--- OUTSIDE RECORDS SUMMARY | 2025-01-22 12:22 | XMS_ITS | Clinical Summary ---
Author Organization [facility] [address] Address [address] [place] [address] Phone Care Team Providers Care Account Liaison Hospice Name Role Phone Sunny Bai MD Primary Care Provider Franklin Sorensen MD Unavailable [phone] Allergies Active Allergy Reactions Criticality Noted [...] mg extended release tabletIndications:Co ronary atherosclerosis of [place] coronary artery TAKE 1 TABLET BY MOUTH DAILY 100 tablet 2 5 Active rosuvastatin (CRESTOR) 10 mg tabletIndications:Co ronary atherosclerosis of [place] coronary artery TAKE 1 TABLET BY MOUTH [...] cl ass III pap smear Genital herpes 1980 IBS (irritable bowel syndrome) Hypertension Hyperlipidemia Fibromyalgia [...] on file Legal Sex Female 7:45 PM TANK CAR INSPECTOR Gender Identity Female 11/07/2020 6:15 AM CDT [...] Comments Blood Pressure 120/68 10/29/2023 3:12 PM TANK CAR INSPECTOR Pulse 82 10/29/2023 3:12 PM TANK CAR INSPECTOR Temperature 37.1 C (98.7 F) 05/11/2019 1:45 PM CDT Respiratory Rate 16 05/11/2019 1:45 PM CDT Oxygen Saturation 96% 10/29/2023 3:12 PM TANK CAR INSPECTOR Inhaled Oxygen Concentration - - Weight 85 kg (187 lb 8 oz) 10/29/2023 3:12 PM CS T Height 163.8 cm (5' 4.5) 10/29/2023 3:12 PM TANK CAR INSPECTOR Body Mass Index 31.69 10/29/2023 3:12 PM TANK CAR INSPECTOR Plan of Treatment Health Maintenance Due Date Last Done Comments Breast Cancer Screening-Mammogram 1953 Colon Cancer Screening-Colonoscopy 1953 Depression Screening 1953 Fall Risk Assessment 1953 Hepatitis C Screening 1953 Osteoporosis Screening-Bone Density Scan 1953 Meningococcal B Vaccine (1 o f 5 - Increased Risk) 1963 DTaP/Tdap/Td Vaccine (1 - Tdap) 1964 Hepatitis B Screening 1971 Pneumococcal vaccine 65+ (1 of 2 - PCV) 1972 Zoster Vaccine (1 of 2) 2003 Well Visit 65+ 03/17/2019 03/17/2018, 02/21/2017 Covid-19 Vaccine (2023-2 5 season) 2024 06/09/2023, 07/15/2022, 01/21/2022, Additional history exists Influenza Vaccine (Season Ended) 2025 06/09/2023, 07/15/2022, 06/28/2021, Additional history exists Insurance [facility] HMO REF MEDICARE ADVANTAGE MEDICARE ADVANTAGE Care Teams Account Liaison Hospice Relationship Specialty Start Date End Date Sunny Bai MD [address] [place] [address] PCP - General Family Medicine 02/21/17 Franklin Sorensen MD [address] [place] [address] Medical Oncologist/Sales Support Manager Hematology and Oncology 05/08/19
--- OUTSIDE RECORDS SUMMARY | 2025-01-22 12:22 | XMS_ITS | Clinical Summary ---
Author Organization [facility] Address [address] [facility] [place] [address] Phone Care Team Providers Care Whipper Name Role Phone Maranda Forbes MD Primary Care Provider [phone] Allergies No known active allergies Medications fluticasone-digna [...] Take 50 mg by mouth nightly. Active [place]-3 Fatty Acids (FISH OIL PO) Take by [...] 2:54 PM CDT Height 165.1 cm (5' 5) 05/23/2016 2:54 PM CDT Body Mass Index [...] age to complete this topic Care Teams Whipper Relationship Specialty Start Date End Date Maranda Forbes MD [address] [place] [address] PCP - General Family Medicine 03/14/16
== END 2025-01-22 12:19 | disposition home or self-care (01) ==
PROVIDERS: PCP Family Medicine; Referring Provider Orthopaedic Surgery; Visit Provider Anesthesiology Pain Medicine
DX: M53.3 Sacrococcygeal disorders, not elsewhere classified (principal); M23.42 Loose body in knee, left knee; M17.11 Unilateral primary osteoarthritis, right knee; M25.461 Effusion, right knee; M46.1 Sacroiliitis, not elsewhere classified
CPT/HCPCS: 72220; 73564

== ENCOUNTER 2025-01-28 13:15 | Outpatient (RCR) | payer MEDICARE, SELFPAY ==
--- NOTE | 2025-01-05 15:32 | OPREHPOC ---
Outpatient Therapy Plan of Care This is a Multidisciplinary Plan of Care that may contain components documented by all disciplines (PT, OT, and ST.) PT Problem 1 PT Problem #1 Knowledge Deficit PT Goal 1 Goal / Goal Update *independent with HEP Target Visit 10 PT Problem 2 PT Problem #2 Impaired Strength PT Goal 1 Goal / Goal Update *increase trunk and hip strength: 1* pt able to perform 35 minutes of aquatic exercises 2* pt perform standing R and L LE exercises with UE support x 20 reps 3* sit/stand with use of 1 UE x 5 reps Target Visit 10 PT Problem 3 PT Problem #3 Impaired Functional Mobility PT Goal 1 Goal / Goal Update 1* 2 minute waking test distance of 300' with wheeled walker, to improve community mobility Target Visit 10
--- NOTE | 2025-01-05 15:32 | PTOPEVAL1 ---
Assessment and note entered by Nanda Romero, PT Evaluation Information Assessment Status Evaluation ICD-10 Condition Codes (PT) Pain in low back M54.50,Radiculopathy, lumbar region M54.16,Difficulty Walking R26.2,Weakness R53.1 Onset February 2024 Subjective Information chronic issues with back and neck pain, fibromyalgia; more back pain without trauma or injury to back ~ February; have not had any falls, use the wheeled walker or cane for walking; under care of pain management: implanted stimulator was recommended- she does not think she wants to do that saw neurosurgeon- fusion/surgery was recommended, pt would have to stop smoking before she could have surgery; pt does not want to have a fusion- have heard bad stories about them have had PT for her back in the past- does some of the stretching exercises still at home; activity: use wheeled walker or cane for walking; daughter lives with her and helps with house chores, have 5 cats- more issues with caring for them; no longer able to do yard work and gardening; laundry is in basement; drives short distances only locally; local sister assists with transportation. Reported Pain Level Pain Score Self Report Additional Pain Score Comments pain range of the past week: 3-10/10; intermittent , radicular pain to R to ankle and L posterior mid thigh increase pain: cleaning cat litter boxes decrease pain: ice, pain meds--oxycodone, extra strength tylenol arthritis, gabapentin cymbalta, flexeril with sleeping- varies: generally can sleep through night, to awaken 1-2 x/night and problems going back to sleep Assessment PT Clinical Summary Karen has the diagnosis of low back pain. Radicular pain into both LE's. She has chronic issues with neck, back and fibromyalgia pain. She is under the care of pain management, neurosurgeon and general dr. She uses a wheeled walker or cane for mobility and requires assist from family for home chores and transportation. Back Index self assessment of 64 % limitation in activity level. With the evaluation: she stands with flexion of trunk and hips and side lean of trunk to L, with standing tolerance about 20 seconds and pain increases; poor tolerance with supine position and supine/sit transfer due to pain increase; decrease LE strength with sit/stand using both UE' s; 2 minute walking test distance of 250' with wheeled walker. standing trunk extension increases her pain. Skilled PT services are indicated for aquatic and land exercises to increase mobility and strength of trunk and hips, with use of modalities PRN for back pain and education for HEP and posture/body mechanics. Plan of Care Interventions Aquatic Therapy,Electrical Stimulation,Hot Pack/ Cold Pack,Manual Therapy,Neuro Re-education, Patient/Caregiver Education,Therapeutic Activities ,Therapeutic Exercise,Ultrasound,Other Other Interventions taping PT Services Indicated Yes Treatment Frequency and 1-2x/wk for 10 visits Duration These treatments will address the objective and functional deficits as defined above. The patient will be advanced safely and appropriately in order for the patient to progress towards his/her prior level of function. Additional exercises will be introduced and as well as a comprehensive home exercise program upon discharge, if needed, ?to ensure carryover of functional gains achieved in the clinic. This treatment plan has been reviewed and agreement upon by the patient.
--- NOTE | 2025-02-02 13:18 | PCPTNOTE ---
Pt canceled today and tomorrows visit due to re-injuring back.
--- NOTE | 2025-02-12 13:14 | PCPTNOTE ---
pt called and canceled today's reeval appt due to more spasms in her back.
--- NOTE | 2025-02-15 16:25 | PCPTNOTE ---
pt called and canceled PT appointments, due to increase pain, want to see the
--- NOTE | 2025-03-19 10:28 | OPREHPOC ---
Outpatient Therapy Plan of Care This is a Multidisciplinary Plan of Care that may contain components documented by all disciplines (PT, OT, and ST.) PT Problem 1 PT Problem #1 Knowledge Deficit PT Goal 1 Goal / Goal Update *independent with HEP 03-19-25 d/c pt stopped attending therapy goals not addressed Target Visit 10 PT Problem 2 PT Problem #2 Impaired Strength PT Goal 1 Goal / Goal Update *increase trunk and hip strength: 1* pt able to perform 35 minutes of aquatic exercises 2* pt perform standing R and L LE exercises with UE support x 20 reps 3* sit/stand with use of 1 UE x 5 reps 03-19-25 d/c pt stopped attending therapy goals not addressed Target Visit 10 PT Problem 3 PT Problem #3 Impaired Functional Mobility PT Goal 1 Goal / Goal Update 1* 2 minute waking test distance of 300' with wheeled walker, to improve community mobility 03-19-25 d/c pt stopped attending therapy goals not addressed Target Visit 10
--- NOTE | 2025-03-19 10:28 | PTOPDC ---
Assessment and note entered by Nanda Romero, PT Discharge Assessment Status Discharge - Pt Not Present ICD-10 Condition Codes (PT) Pain in low back M54.50,Radiculopathy, lumbar region M54.16,Difficulty Walking R26.2,Weakness R53.1 Onset February 2024 Subjective Information pt was not seen this date. Assessment PT Clinical Summary Karen has received 3 PT sessions, from January 05 to January 28. She then called/canceled 3 appointments. And did not attend any additional therapy. Discharge PT due to pt not attending therapy. The goals were not addressed. Plan of Care PT Services Indicated No
== END 2025-03-19 13:54 | disposition home or self-care (01) ==
LOC: ANHPT 13:15
PROVIDERS: PCP Family Medicine; Visit Provider Anesthesiology Pain Medicine
DX: M48.062 Spinal stenosis, lumbar region with neurogenic claudication (principal); M54.51 Vertebrogenic low back pain; M54.17 Radiculopathy, lumbosacral region; M43.16 Spondylolisthesis, lumbar region; M54.9 Dorsalgia, unspecified
CPT/HCPCS: 97110; 97113; 97162; 97530

== ENCOUNTER 2025-02-05 17:25 | Outpatient (CLI) | payer MEDICARE, SELFPAY ==
--- OUTSIDE RECORDS SUMMARY | 2025-02-05 17:27 | XMS_ITS | Clinical Summary ---
Author Organization [facility] [address] Address [address] [place] [address] Phone Care Team Providers Care Track Manager Name Role Phone Sunny Bai MD Primary Care Provider Franklin Sorensen MD Unavailable [phone] Allergies Active Allergy Reactions Criticality Noted [...] mg extended release tabletIndications:Co ronary atherosclerosis of [place] coronary artery TAKE 1 TABLET BY MOUTH DAILY 100 tablet 2 5 Active rosuvastatin (CRESTOR) 10 mg tabletIndications:Co ronary atherosclerosis of [place] coronary artery TAKE 1 TABLET BY MOUTH DAILY 100 tablet 5 Active Active Problems Problem Noted Date Diagnosed Date History of coronary artery stent placement 11/08 Beta-thalassemia 05/11/2019 Erythrocytosis 05/08/2019 Spinal stenosis of cervical region 05/23/2016 Encounters Date Type Department Care Team Description 01/28/2025 Orders Only [facility] Cardiology [address] [place] [address] Provider, MD Jude from Last 3 Months Surgical History Surgery Date Site/Laterality Comments CERVICAL CONE BIOPSY 08/26/1983 - 08/25/1984 class III pap smear ANAL FISSURECTOMY 08/26/1986 - 08/25/1987 SECTION 08/26/1980 - 08/25/1981 with appendectomy SECTION COLONOSCOPY Medical History Medical History Date Comments Depression hospitalization in 2011 Abnormal Pap smear of cervix cl ass [...] on file Legal Sex Female 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 Gender Identity Female 11/07/2020 6:15 AM CDT [...] Comments Blood Pressure 120/68 10/29/2023 3:12 PM SHEETMETAL WORKER Pulse 82 10/29/2023 3:12 PM SHEETMETAL WORKER Temperature 37.1 C (98.7 F) 05/11/2019 1:45 PM CDT Respiratory Rate 16 05/11/2019 1:45 PM CDT Oxygen Saturation 96% 10/29/2023 3:12 PM SHEETMETAL WORKER Inhaled Oxygen Concentration - - Weight 85 kg (187 lb 8 oz) 10/29/2023 3:12 PM CS T Height 163.8 cm (5' 4.5) 10/29/2023 3:12 PM SHEETMETAL WORKER Body Mass Index 31.69 10/29/2023 3:12 PM SHEETMETAL WORKER Plan of Treatment Health Maintenance Due Date [...] 2025 06/09/2023, 07/15/2022, 06/28/2021, Additional history exists Procedures Procedure Name Priority Date/Time Associated Diagnosis Comments LIPID PANEL Routine 12/02/2024 11:04 AM CDT from Last 3 Months Results * (ABNORMAL) Lipid panel (12/02/2024 11:04 AM CDT) SCRIBED Cholesterol, Total 161 30 - 199 mg/dL [facility] SCRIBED Triglycerides 179(A) <=149 mg/dL [facility] SCRIBED HDL 52 >=40 mg/dL [facility] SCRIBED LDL 81 <=129 mg/dL [facility] Scribed Non-HDL Cholesterol 109 NONE mg/dL [facility] SCRIBED Total Cholesterol/HDL Ratio 3 NONE [facility] Blood us Historical Provider LAB BLOOD ORDERABLES Edit ed Result - Final [facility] from Last 3 Months Insurance [employer] [facility] MDCR HMO REF UHC MEDICARE ADVANTAGE [facility] MEDICARE ADVANTAGE Care Teams Track Manager Relationship Specialty Start Date End Date Sunny Bai MD [address] [address] PCP - General Family Medicine 02/21/17 Franklin Sorensen MD [address] [facility] [address] [place] [address] Medical Oncologist/Secretary To Board Of Commissioners Hematology and Oncology 05/08/19
--- OUTSIDE RECORDS SUMMARY | 2025-02-05 17:27 | XMS_ITS | Continuity of Care Document ---
Author Organization [facility] Address [address] [place] [address] Phone Care Team Providers Care Engineer Technician Name Role Phone Lilliam Valdez Unavailable Unavailable Advance Directives Directive Yes / No Effective Date File Name No Information Encounters Encounter Description Practice Location Reason(s) For Visit Diagnoses Date Provider Providers Copied on Encounter [facility], [address], [place], [place], [id number], [place] tel:[phone] [facility] No Information [address] [facility] , [address], [place], [address], [place]. tel:[phone] Family History Family Member Type Diagnosis Age [...]
--- OUTSIDE RECORDS SUMMARY | 2025-02-05 17:27 | XMS_ITS | Clinical Summary ---
Author Organization [facility] Address [address] [facility] [place] [address] Phone Care Team Providers Care Tobacco Farmworker Name Role Phone Maranda Forbes MD Primary Care Provider [phone] Allergies No known active allergies Medications fluticasone-digna [...] Take 50 mg by mouth nightly. Active [place]-3 Fatty Acids (FISH OIL PO) Take by [...] age to complete this topic Care Teams Tobacco Farmworker Relationship Specialty Start Date End Date Maranda Forbes MD [address] [place] [address] PCP - General Family Medicine 03/14/16
--- OUTSIDE RECORDS SUMMARY | 2025-02-05 17:27 | XMS_ITS | Referral Summary ---
Author Organization [facility] [address] Address [address] [place] [address] Phone Care Team Providers Care Resident Care Aide Name Role Phone Sunny Bai MD Primary Care Provider Franklin Sorensen MD Unavailable [phone] Encounters Date Type Department Care Team Description 01/28/2025 Orders Only [facility] Cardiology [address] [place] [address] ProviderJude MD from Last 3 Months Allergies Active Allergy [...] 9 Active chlorthalidone 25 mg tablet TK 08/27 T PO QD 5 9 Active coenzyme [...] mg extended release tabletIndications:Co ronary atherosclerosis of [place] coronary artery TAKE 1 TABLET BY MOUTH DAILY 100 tablet 2 5 Active rosuvastatin (CRESTOR) 10 mg tabletIndications:Co ronary atherosclerosis of [place] coronary artery TAKE 1 TABLET BY MOUTH [...] on file Legal Sex Female 7:45 PM STUDY COORDINATOR Gender Identity Female 11/07/2020 6:15 AM CDT Sexual Orientation Straight 11/07/2020 6: 15 AM CDT Occupation Industry Job Start Date Job End Date retired Not on file Not on file Not on file Last Filed Vital Signs Vital Sign Reading Time Taken Comments Blood Pressure 120/68 10/29/2023 3:12 PM STUDY COORDINATOR Pulse 82 10/29/2023 3:12 PM STUDY COORDINATOR Temperature 37.1 C (98.7 F) 05/11/2019 1:45 PM CDT Respiratory Rate 16 05/11/2019 1:45 PM CDT Oxygen Saturation 96% 10/29/2023 3:12 PM STUDY COORDINATOR Inhaled Oxygen Concentration - - Weight 85 kg (187 lb 8 oz) 10/29/2023 3:12 PM CS T Height 163.8 cm (5' 4.5) 10/29/2023 3:12 PM STUDY COORDINATOR Body Mass Index 31.69 10/29/2023 3:12 PM STUDY COORDINATOR Plan of Treatment Not on file Procedures Procedure Name Priority Date/Time Associated Diagnosis [...] Final [facility] from Last 3 Months Insurance [facility] MDCR HMO REF MEDICARE ADVANTAGE [facility] MEDICARE ADVANTAGE Care Teams Resident Care Aide Relationship Specialty Start Date End Date Sunny Bai MD [address] [address] PCP - General Family Medicine 02/21/17 Franklin Sorensen MD [address] [facility] [address] [place] [address] Medical Oncologist/Correctional Officer Chief Hematology and Oncology 05/08/19
--- OUTSIDE RECORDS SUMMARY | 2025-02-05 17:27 | XMS_ITS | Clinical Summary ---
Author Organization [facility] Address [address] [place] [address] Care Team Providers Care Deer Farm Worker Name Role Phone Sunny Bai MD Primary Care Provider [phone] Source Comments [facility],non-owned Affiliates and Associated Physician Practices is amultiple site organization consisting of ambulatory clinics and hospital sitesin [place], [place], [place] and [place]. This disclosure is being madepursuant to the Care Everywhere program and may not contain all information available regarding this patient. Last updated 18.[facility] Allergies Active Allergy Reactions Criticality Noted Date [...] complete this topic Insurance MANAGED MEDICARE ADV Care Teams Deer Farm Worker Relationship Specialty Start Date End Date Sunny Bai MD [address] [facility] [address] [place] [address] PCP - General Family Medicine 06/19/24
[2025-02-05 17:45] LABS: Basophils Absolute Auto 0.1 K/mm3 (0.0-0.1); Basophils Percent Auto 1.2 % (0.2-1.2); Eosinophils Absolute Auto 0.4 K/mm3 (0-0.3); Eosinophils Percent Auto 5.3 % (0-4.4); Hematocrit 37.3 % (37.0-47.0); Hemoglobin 11.7 g/dL (12.0-15.0); Immature Granulocyte Absolute 0.02 K/mm3 (0.00-0.031); Immature Granulocyte Percent A 0.3 % (0-0.5); Lymphocytes Absolute Auto 2.57 K/mm3 (0.9-3.2); Lymphocytes Percent Auto 33.5 % (18.3-44.2); Mean Corpuscular HGB Conc 31.4 g/dl (32-36); Mean Corpuscular Hemoglobin 21.6 pg (26-34); Mean Corpuscular Volume 68.8 fl (80-100); Mean Platelet Volume 10.1 fl (7.4-10.4); Monocytes Absolute Auto 0.8 K/mm3 (0.1-0.6); Monocytes Percent Auto 9.8 % (2.6-8.5); Neutrophils Absolute Auto 3.8 K/mm3 (1.3-6.7); Neutrophils Percent Auto 49.9 % (45.5-73.1); Platelet Count Result 354 k/mm3 (150-375); Red Blood Count 5.42 M/mm3 (4.2-5.4); Red Cell Distribution Width 15.9 % (11.5-14.5); White Blood Count 7.7 K/mm3 (4.5-10.0)
[2025-02-05 18:04] LABS: Platelet Estimate Adequate (Adequate); Schistocytes None Seen
[2025-02-05 18:05] LABS: Band Neutrophils Percent 0 % (0-6)
== END 2025-02-05 17:26 | disposition home or self-care (01) ==
PROVIDERS: PCP Family Medicine; Visit Provider Family Medicine
DX: D72.829 Elevated white blood cell count, unspecified (principal)
CPT/HCPCS: 36415; 85025

== ENCOUNTER 2025-02-11 15:06 | Outpatient (CLI) | payer MEDICARE, SELFPAY ==
--- NOTE | ~2025-02-11 | DEXA_ITS ---
Bone Density Report Name: CRISTIN PUTNAM Age: 69 Sex: Female Ethnicity: White Date of : 1955 Indication: postmenopausal; screening for osteoporosis; height loss; asthma or emphysema; Referring Provider: VILLA DASH Study: Bone densitometry was performed. Exam Date: February 11, 2025 Accession number: [id number] Bone Density: Region BMD T-score Z-score Classification AP Spine(L1-L4) 0.961 -0.8 1.4 Normal Femoral Neck (Left) 0.766 -0.8 1.1 Normal Total Hip (Left) 0.865 -0.6 1.0 Normal Femoral Neck (Right) 0.713 -1.2 0.7 Osteopenia Total Hip (Right) 0.795 -1.2 0.4 Osteopenia Total Hip Mean 0.830 -0.9 0.7 Normal World Health Organization criteria for BMD impression classify patients as: Normal (T-score at or above -1.0), Osteopenia (T-score between -1.0 and -2.5), or Osteoporosis (T-score at or below -2.5). 10-year Fracture Risk(1): Major Osteoporotic Fracture 9.2% Hip Fracture 2.0% Reported Risk Factors: [place] (), Neck BMD=0.713, BMI=33.5, smoking (1) FRAX(R) Version 3.08. Fracture probability calculated for an untreated patient. Fracture probability may be lower if the patient has received treatment. Clinical Information Provided by Patient: Smokes Has used the following medications: Vitamin D, Calcium Has the following medical conditions: Asthma or Emphysema Patient maximum height was 66.5 Menopause Age: 46 No regular weight bearing exercise Drinks caffeinated beverages Onset of menses at age 15 Number of children 2 Impression: The patient has low bone mass, based on the Right Total Hip T-score. The patient has an estimated ten-year risk of hip fracture of 2% and an estimated ten-year risk of major fracture of 9.2%, based on the WHO FRAX algorithm. The patient has risk factors, including: smoking. Discussion: BONE DENSITY IS LOW AT ONE OR MORE SKELETAL SITES. This patient's lowest T-score is low at one or more skeletal sites. It meets the World Health Organization's (WHO) criteria for ?low bone mass? (T-score between -1.0 and -2.5). The patient's 10-year risk of fracture as calculated by FRAX is less than the threshold where pharmacological therapy is recommended by the National Osteoporosis Foundation (NOF). However, all treatment decisions require clinical judgment and consideration of individual patient factors, including patient preferences, comorbidities, previous drug use, risk factors not captured in the FRAX model (e.g., frailty, falls, vitamin D deficiency, increased bone turnover, interval significant decline in bone density) and possible under or overestimation of fracture risk by FRAX. The patient should follow a healthful lifestyle (good nutrition with adequate calcium and vitamin D, and appropriate weight-bearing exercise). Follow-Up: Consider repeating this study in 2 to 3 years to reassess this patient's status, or sooner if there is some new clinical indication. Reported by: REBECCA on 02/11/2025 3:50:00 PM. Reviewed, dictated and finalized at location A.
--- OUTSIDE RECORDS SUMMARY | 2025-02-11 15:13 | XMS_ITS | Referral Summary ---
Author Organization [facility] [address] Address [address] [place] [address] Phone Care Team Providers Care Dulser Name Role Phone Sunny Bai MD Primary Care Provider Franklin Sorensen MD Unavailable [phone] Encounters Date Type Department Care Team Description 02/09/[address] [facility] Cardiology [address] [facility] [address] [place] [address] Jude Villanueva MD 01/28/[address] [facility] Cardiology [address] [facility] [address] [place] [address] Jude Villanueva MD from Last 3 Months Allergies Active [...] mg extended release tabletIndications:Co ronary atherosclerosis of [place] coronary artery TAKE 1 TABLET BY MOUTH DAILY 100 tablet 2 5 Active rosuvastatin (CRESTOR) 10 mg tabletIndications:Co ronary atherosclerosis of [place] coronary artery TAKE 1 TABLET BY MOUTH [...] on file Legal Sex Female 7:45 PM LINING MAKER HAND Gender Identity Female 11/07/2020 6:15 AM CDT Sexual Orientation Straight 11/07/2020 6: 15 AM CDT Occupation Industry Job Start Date Job End Date retired Not on file Not on file Not on file Last Filed Vital Signs Vital Sign Reading Time Taken Comments Blood Pressure 120/68 10/29/2023 3:12 PM LINING MAKER HAND Pulse 82 10/29/2023 3:12 PM LINING MAKER HAND Temperature 37.1 C (98.7 F) 05/11/2019 1:45 PM CDT Respiratory Rate 16 05/11/2019 1:45 PM CDT Oxygen Saturation 96% 10/29/2023 3:12 PM LINING MAKER HAND Inhaled Oxygen Concentration - - Weight 85 kg (187 lb 8 oz) 10/29/2023 3:12 PM CS T Height 163.8 cm (5' 4.5) 10/29/2023 3:12 PM LINING MAKER HAND Body Mass Index 31.69 10/29/2023 3:12 PM LINING MAKER HAND Plan of Treatment Not on file Procedures [...] Final [facility] from Last 3 Months Insurance [facility] REF [facility] MEDICARE Address: [address] [address] [place] [address] UHC MEDICARE ADVANTAGE [facility] MEDICARE Address: [facility] [address] [place] [address] [facility] MEDICARE ADVANTAGE [facility] MEDICARE Address: [address] [address] Care Teams Dulser Relationship Specialty Start Date End Date Sunny Bai MD [address] [place] [address] PCP - General Family Medicine 02/21/17 Franklin Sorensen MD [address] [place] [address] Medical Oncologist/Process Designer Hematology and Oncology 05/08/19
--- OUTSIDE RECORDS SUMMARY | 2025-02-11 15:13 | XMS_ITS | Clinical Summary ---
Author Organization [facility] Address [address] [place] [address] Care Team Providers Care Cat Swamper Name Role Phone Sunny Bai MD Primary Care Provider [phone] Source Comments [facility],non-owned Affiliates and Associated Physician Practices is amultiple site organization consisting of ambulatory clinics and hospital sitesin [place], [place], [place] and [place]. This disclosure is being madepursuant to the Care Everywhere program and may not contain all information available regarding this patient. Last updated 18.[facility] Allergies Active Allergy Reactions Criticality Noted Date [...] topic Insurance MANAGED MEDICARE ADV Care Teams Cat Swamper Relationship Specialty Start Date End Date Sunny Bai MD [address] [facility] [address] [place] [address] PCP - General Family Medicine 06/19/24
--- OUTSIDE RECORDS SUMMARY | 2025-02-11 15:13 | XMS_ITS | Encounter Summary ---
Author Organization [facility] Address [address] [place] [address] Care Team Providers Care Brick Handler Name Role Phone Sunny Bai MD Primary Care Provider Franklin Sorensen MD Unavailable [phone] Reason for Referral * MRI/CAT/PET Scan (Routine) - Closed Specialty Diagnoses / Procedures Referred By Contac t Referred To Contact Radiology Procedures MRI Lumbar Spine WO Contrast Jude Villanueva MD [address] [place] [address] Phone: tel: Referral ID Status Reason Start Date Expiration Date Visits Re quested Visits Authorized [id number] Closed 02/09/2025 03/11/2026 1 1 Encounter Details Date Type Department Care Team (Late st Contact Info) Description 02/09/2025 Orders Only [facility] Medical Group Cardiology [address] [place] [address] Jude Villanueva MD [address] [place] [address] Social History Tobacco Use Types Packs/Day Years Used Date Smoking Tobacco: Some Days Cigarettes 0.5 15 Smokeless Tobacco: Never Alcohol Use Standard Drinks/Week Comments Yes 0 (1 standard drink = 0.6 oz pur e alcohol) Personal Safety Answer Date Recorded Getting School Help Needed Not on file 12/29 /2023 Comments No Sex and Gender Information Value Date Recorded Sex Assigned at Not on file Legal Sex Female 7:45 PM PROFESSOR OF VEGETABLE SCIENCE Gender Identity Female 11/07/2020 6:15 AM CDT Sexual Orientation Straight 11/07/2020 6: 15 AM CDT Occupation Industry Job Start Date Job End Date retired Not on file Not on file Not on file documented as of this encounter Plan of Treatment Not on file documented as of this encounter Procedures Procedure Name Priority Date/Time Associated Diagnosis Comments MRI LUMBAR SPINE WO CONTRAST Schedule Routine, Read Routine (OP Routine) 08/07/2024 8:05 AM PROFESSOR OF VEGETABLE SCIENCE documented in this encounter Results * MRI Lumbar Spine WO Contrast (08/07/2024 8:05 AM PROFESSOR OF VEGETABLE SCIENCE) Anatomical Region Laterality Modality Spine N/A Magnetic Resonan ce Historical Provider MD BUSBY MRI PROCEDURES Final Result documented in this encounter Visit Diagnoses Not on filedocumented in this encounter Care Teams Brick Handler Relationship Specialty Start Date End Date Sunny Bai MD [address] [place] [address] PCP - General Family Medicine 02/21/17 Franklin Sorensen MD [address] [place] [address] Medical Oncologist/Ski Topper Hematology and Oncology 05/08/19 documented as of this encounter
--- OUTSIDE RECORDS SUMMARY | 2025-02-11 15:13 | XMS_ITS | Clinical Summary ---
Author Organization [facility] [address] Address [address] [facility] [place] [address] Phone Care Team Providers Care President Ergonomic Consulting Name Role Phone Sunny Bai MD Primary Care Provider Franklin Sorensen MD Unavailable [phone] Allergies Active Allergy Reactions Criticality Noted [...] mg extended release tabletIndications:Co ronary atherosclerosis of [place] coronary artery TAKE 1 TABLET BY MOUTH DAILY 100 tablet 2 5 Active rosuvastatin (CRESTOR) 10 mg tabletIndications:Co ronary atherosclerosis of [place] coronary artery TAKE 1 TABLET BY MOUTH DAILY 100 tablet 5 Active Active Problems Problem Noted Date Diagnosed Date History of coronary artery stent placement 11/08 Beta-thalassemia 05/11/2019 Erythrocytosis 05/08/2019 Spinal stenosis of cervical region 05/23/2016 Encounters Date Type Department Care Team Description 02/09/2025 Orders Only [facility] Medical Group Cardiology [address] [place] [address] Provider, MD Jude 01/28/2025 Orders Only [facility] Medical Group Cardiology [address] [place] [address] Provider, MD Jude from Last 3 Months [...] file Legal Sex Female 7:45 PM MANAGER PRIVATE Gender Identity Female 11/07/2020 6:15 AM CDT [...] Blood Pressure 120/68 10/29/2023 3:12 PM MANAGER PRIVATE Pulse 82 10/29/2023 3:12 PM MANAGER PRIVATE Temperature 37.1 C (98.7 F) 05/11/2019 1:45 PM CDT Respiratory Rate 16 05/11/2019 1:45 PM CDT Oxygen Saturation 96% 10/29/2023 3:12 PM MANAGER PRIVATE Inhaled Oxygen Concentration - - Weight 85 kg (187 lb 8 oz) 10/29/2023 3:12 PM CS T Height 163.8 cm (5' 4.5) 10/29/2023 3:12 PM MANAGER PRIVATE Body Mass Index 31.69 10/29/2023 3:12 PM MANAGER PRIVATE Plan of Treatment Health Maintenance Due Date [...] Final [place] from Last 3 Months Insurance [employer] [place] [facility] MEDICARE [facility]ANT[facility] Address: [address] [address] [place] [address] [facility] MEDICARE [facility]ANTAGE [facility] Address: [address] [address] [place] [address] Care Teams President Ergonomic Consulting Relationship Specialty Start Date End Date Sunny Bai MD [address] [place] [address] PCP - General Family Medicine 02/21/17 Franklin Sorensen MD [address] [place] [address] Medical Oncologist/Bend Sorter Hematology and Oncology 05/08/19
--- OUTSIDE RECORDS SUMMARY | 2025-02-11 15:13 | XMS_ITS | Clinical Summary ---
Author Organization [facility] Address [address] [facility] [place] [address] Phone Care Team Providers Care Client Analyst Name Role Phone Maranda Forbes MD Primary Care Provider [phone] Allergies No known active allergies Medications fluticasone-digna [...] Take 50 mg by mouth nightly. Active [place]-3 Fatty Acids (FISH OIL PO) Take by [...] age to complete this topic Care Teams Client Analyst Relationship Specialty Start Date End Date Maranda Forbes MD [address] [place] [address] PCP - General Family Medicine 03/14/16
--- OUTSIDE RECORDS SUMMARY | 2025-02-11 15:13 | XMS_ITS | Continuity of Care Document ---
Author Organization [facility] Address [address] [place] [address] Phone Care Team Providers Care Warrant Clerk Name Role Phone Lilliam Valdez Unavailable Unavailable Advance Directives Directive Yes / No Effective Date File Name No Information Encounters Encounter Description Practice Location Reason(s) For Visit Diagnoses Date Provider Providers Copied on Encounter [facility], [address], [place], [place], [id number], [place] tel:[phone] [address] [facility] No Information [address] [facility] [address] , [address], [place], [address], [place]. tel:[phone] Family History Family Member Type Diagnosis Age [...]
--- OUTSIDE RECORDS SUMMARY | 2025-02-11 15:13 | XMS_ITS | CONTINUITY OF CARE DOCUMENT ---
Author Name abraham rosario Address Unknown Organization [facility] Address [address] [place] [address] Phone [phone] Care Team Providers Care Flight Crew Time Clerk Name Role Phone Flynn Beltrán MD Unavailable [phone] Flynn Beltrán MD Unavailable [phone] INSURANCE PROVIDERS Payer name Policy type / Coverage type Perkins red constitution party ID AARP MEDICARE ADVANTAGE ST 0 003 (HMO POS) Medicare [id number]
== END 2025-02-11 15:07 | disposition home or self-care (01) ==
LOC: ANHIMG 15:11
PROVIDERS: PCP Family Medicine; Referring Provider Anesthesiology Pain Medicine; Visit Provider Neurological Surgery
DX: S34.109A Unspecified injury to unspecified level of lumbar spinal cord, initial encounter (principal); Z13.820 Encounter for screening for osteoporosis; X58.XXXA Exposure to other specified factors, initial encounter; M85.851 Other specified disorders of bone density and structure, right thigh
CPT/HCPCS: 77080

== ENCOUNTER 2025-03-30 13:17 | Outpatient (CLI) | payer MEDICARE, SELFPAY ==
--- NOTE | ~2025-03-30 | US_ITS ---
EXAMINATION: US art doppler w press LE BI DATE: 03/30/2025 15:21 INDICATION: Peripheral arterial occlusive disease TECHNIQUE: Segmental pressures and plethysmographic and Doppler waveforms of the brachial and lower e xtremity arteries were obtained. COMPARISON: None. FINDINGS: Right and left brachial artery pressures of 115 mm Hg and 104 mm Hg, respectively, are concordant (no rmal difference <= 30 mmHg). The right and left high-thigh pressure indices are unable to be obtained due to inability to occlude the vessels at either side (normal > 1.2). The right ankle-brachial index (NGHIA) is 1.14 (normal >= 0.9-1). The right great toe-brachial index (T BI) is 0.60 (normal >= 0.6-0.8). The right lower extremity segmental pressure gradients are normal (n ormal gradients <= 20-30 mmHg between adjacent levels on the same leg or the same levels on the two l egs). Arterial waveforms are biphasic at the right common femoral, superficial femoral and popliteal arteries and monophasic at the right posterior tibial and dorsalis pedis arteries with normal brisk s ystolic upstrokes throughout. The left NGHIA is 1.16. The left TBI is 0.63. The left lower extremity segmental pressure gradients are increased between the left dorsalis pedis artery with respect to the left [id number]-htch popliteal a rtery, the left posterior tibial artery at the same level as well as the contralateral left dorsalis pedis artery. Arterial waveforms are biphasic at the left common femoral, superficial femoral and pop liteal arteries and biphasic in the left posterior tibial and dorsalis pedis arteries with normal yandel sk systolic upstrokes throughout. IMPRESSION: 1. Likely mild arterial occlusive disease to bilateral lower limbs with normal bilateral ABIs but bor derline bilateral TBIs and with increased pressure gradient of the left dorsalis pedis artery relativ e to several vessels as detailed above. Reviewed, dictated and finalized at location A. IMPRESSION: 1. Likely mild arterial occlusive disease to bilateral lower limbs with normal bilateral ABIs but borderline bilateral TBIs and with increased pressure gradie nt of the left dorsalis pedis artery relative to several vessels as detailed ab ove.
--- OUTSIDE RECORDS SUMMARY | 2025-03-30 13:21 | XMS_ITS | Clinical Summary ---
Author Organization [facility] Address [address] [facility] [place] [address] Phone Care Team Providers Care Jewelry Casting Model Maker Apprentice Name Role Phone Maranda Forbes MD Primary Care Provider [phone] Allergies No known active allergies Medications fluticasone-digna [...] Take 50 mg by mouth nightly. Active [place]-3 Fatty Acids (FISH OIL PO) Take by [...] Health Maintenance Due Date Last Done Comments Hepatitis C Virus (HCV) Screening 1955 TdaP Immunization 1955 Cologuard 1998 Colonoscopy 1998 Colorectal Cancer Screening 1998 Immunochemical Fecal Occult Blood 1998 Pneumococcal Immunization (5 0+ years) (1 of 1 - PCV) 2003 Zoster Immunization (1 of 2) 2003 SARS-COV-2 Immunization (1 - 2023-25 season) 2024 Influenza Immunization (#1) 2025 Respiratory Syncytial Virus (RSV) Immunization (Adult) (1 - 1-dose 75+ series) 2028 Hepatitis B Immunization Aged Out No longer eligible based on patient's age to complete this topic Human Papillomavirus (HPV) Immunization Aged Out No longer eligible b ased on patient's age to complete this topic Meningococcal Immunization (ACWY) Aged Out No longer eligible based on patient's age to complete this topic Rotavirus Immunization Aged Out No lo nger eligible based on patient's age to complete this topic Care Teams Jewelry Casting Model Maker Apprentice Relationship Specialty Start Date End Date Maranda Forbes MD [address] [place] [address] PCP - General Family Medicine 03/14/16
--- OUTSIDE RECORDS SUMMARY | 2025-03-30 13:21 | XMS_ITS | Clinical Summary ---
Author Organization [facility] Address [address] [place] [address] Care Team Providers Care Director Of Cloud Services Name Role Phone Sunny Bai MD Primary Care Provider Source Comments [facility],non-owned Affiliates and Associated Physician Practices is amultiple site organization consisting of ambulatory clinics and hospital sitesin [place], [place], [place] and [place]. This disclosure is being madepursuant to the Care Everywhere program and may not contain all information available regarding this patient. Last updated 18.[facility] Allergies Active Allergy Reactions Criticality Noted Date [...] MEDICARE AWV CALENDAR YEAR 2024 INFLUENZA VACCINE (#1) 2025 06/01/2020 Respiratory Syncytial Virus (RSV) Vaccine Pt: or [...] topic Insurance MANAGED MEDICARE ADV Care Teams Director Of Cloud Services Relationship Specialty Start Date End Date Sunny Bai MD [address] [place] [address] PCP - General Family Medicine 06/19/24
--- OUTSIDE RECORDS SUMMARY | 2025-03-30 13:21 | XMS_ITS | Patient Health Record ---
Author Organization [facility] Address [address] [facility] [address] [place] [address] Care Team Providers Care Workers Compensation Claims Supervisor Name Role Phone Geoffrey Vu Unavailable [phone] Reason For Referral No Information Medications Medication SIG (Take, Route, Frequency, Duration) Notes Start Date End Date Status Chlorthalidone 25 MG Oral Active traZODone HCl 50 MG Oral Active Simvastatin 5 MG Oral Act maria fernanda Cyclobenzaprine HCl 10 MG Oral Active DULoxetine HCl 60 MG Oral Active Benazepril HCl 20 MG Oral Active Montelukast Sodium 10 MG Oral Active DULoxetine HCl 30 MG Oral Active amLODIPine Besylate 5 MG Oral Active Plan Of Treatment No Information
--- OUTSIDE RECORDS SUMMARY | 2025-03-30 13:21 | XMS_ITS | Referral Summary ---
Author Organization [facility] [address] Address [address] [place] [address] Phone Care Team Providers Care Returns Supervisor Name Role Phone Sunny Bai MD Primary Care Provider Franklin Sorensen MD Unavailable [phone] Encounters Date Type Department Care Team Description 02/09/[address] [facility] Medical Group Cardiology [address] [place] [address] Jude Villanueva MD 01/28/[address] [facility] Medical Group Cardiology [address] [place] [address] Jude Villanueva MD from Last 3 Months Allergies Active Allergy Reactions Criticality Noted Date Comments Erythromycin Vomiting Low Penicillins Rash Medium 05/11/2019 Medications cyclobenzaprine (FLEXERIL) 10 mg tablet take 1 tablet by oral route 2 times every day 0 0 10/31/19 16 Active benazepril (LOTENSIN) 20 mg tablet take 1 tablet by oral route every day 0 0 10/31/[address] (VOLTAREN) 75 mg EC tablet take 1 tablet by oral route 2 times every day 0 0 10/31/19 16 Active estrogens, conjugated, (PREMARIN) vaginal cream insert 0.5 - 1 Gram by Vaginal route q hs for 2-3 weeks, then 2-3 X/week 1 Tube 6 10/31/19 16 Active montelukast (SINGULAIR) 10 mg tablet take 1 tablet by oral route every day in the evening 0 0 10/31/[address] (CYMBALTA) 60 mg capsule take 1 capsule by oral route every day 0 0 10/31/19 16 Active calcium carb-vit D3-soy isoflv 500-200-45 mg-unit-mg tablet Take by mouth. Active multivitamin tablet tabletIndications:V itamin Deficiency Prevention Take by mouth. Active amLODIPine (NORVASC) 5 mg tablet TK 1 T PO QD 2 12/18/[address] (CYMBALTA) 30 mg capsule TK ONE C PO ONCE A DAY WITH 60MG C. 0 02/07/20 18 Active fenofibrate (TRIGLIDE) 160 mg tablet 04/30/20 19 Active chlorthalidone 25 mg tablet TK 1/2 T PO QD 5 03/22/20 19 Active coenzyme Q10 10 mg capsule Take 1 capsule (10 mg total) by mouth daily Active flaxseed oil oil Act maria fernanda aspirin 81 mg chewable tablet 07/19/20 20 Active gabapentin (NEURONTIN) 300 mg capsule Take 1 capsule (300 mg total) by mouth 10/21/19 24 Active Trelegy Ellipta 100-62.5-25 mcg inhaler Inhale 1 puff daily 10/11/19 24 Active buPROPion XL (WELLBUTRIN XL) 150 mg 24 hr tablet Take 1 tablet (150 mg total) by mouth every morning 09/11/19 24 Active nitroglycerin (NITROSTAT) 0.[address] 1 tablet (0.4 mg total) under the tongue every 5 (five) minutes as needed for chest pain 25 tablet 2 11/25/19 24 Active metoprolol XL (TOPROL-XL) 50 mg extended release tabletIndications:C oronary atherosclerosis of [place] coronary artery TAKE 1 TABLET BY MOUTH DAILY 100 tablet 2 11/17/19 25 Active rosuvastatin (CRESTOR) 10 mg tabletIndications:C oronary atherosclerosis of [place] coronary artery TAKE 1 TABLET BY MOUTH DAILY 90 tablet 03/30/20 25 Active rosuvastatin (CRESTOR) 10 mg tabletIndications:C oronary atherosclerosis of [place] coronary artery TAKE 1 TABLET BY MOUTH DAILY 100 tablet 12/12/19 25 025 Discontinued Active Problems Problem Noted Date Diagnosed Date [...] on file Legal Sex Female 7:45 PM FOREIGN EXCHANGE STUDENT COORDINATOR Gender Identity Female 11/07/2020 6:15 AM CDT Sexual Orientation Straight 11/07/2020 6: 15 AM CDT Occupation Industry Job Start Date Job End Date retired Not on file Not on file Not on file Last Filed Vital Signs Vital Sign Reading Time Taken Comments Blood Pressure 120/68 10/29/2023 3:12 PM FOREIGN EXCHANGE STUDENT COORDINATOR Pulse 82 10/29/2023 3:12 PM FOREIGN EXCHANGE STUDENT COORDINATOR Temperature 37.1 C (98.7 F) 05/11/2019 1:45 PM CDT Respiratory Rate 16 05/11/2019 1:45 PM CDT Oxygen Saturation 96% 10/29/2023 3:12 PM FOREIGN EXCHANGE STUDENT COORDINATOR Inhaled Oxygen Concentration - - Weight 85 kg (187 lb 8 oz) 10/29/2023 3:12 PM CS T Height 163.8 cm (5' 4.5) 10/29/2023 3:12 PM FOREIGN EXCHANGE STUDENT COORDINATOR Body Mass Index 31.69 10/29/2023 3:12 PM FOREIGN EXCHANGE STUDENT COORDINATOR Plan of Treatment Not on file Insurance [facility] [address] [place] [address] [place] [address] Care Teams Returns Supervisor Relationship Specialty Start Date End Date Sunny Bai MD [address] [place] [address] PCP - General Family Medicine 02/21/17 Franklin Sorensen MD [address] [place], [place] [id number] Medical Oncologist/Pipeline Maintenance Supervisor Hematology and Oncology 05/08/19
--- OUTSIDE RECORDS SUMMARY | 2025-03-30 13:21 | XMS_ITS | Clinical Summary ---
Author Organization [facility] [address] Address [address] [place] [address] Phone Care Team Providers Care Manager Filter Name Role Phone Sunny Bai MD Primary Care Provider Franklin Sorensen MD Unavailable [phone] Allergies Active Allergy Reactions Criticality Noted [...] mg extended release tabletIndications:C oronary atherosclerosis of [place] coronary artery TAKE 1 TABLET BY MOUTH DAILY 100 tablet 2 11/17/19 25 Active rosuvastatin (CRESTOR) 10 mg tabletIndications:C oronary atherosclerosis of [place] coronary artery TAKE 1 TABLET BY MOUTH DAILY 90 tablet 03/30/20 25 Active rosuvastatin (CRESTOR) 10 mg tabletIndications:C oronary atherosclerosis of [place] coronary artery TAKE 1 TABLET BY MOUTH DAILY 100 tablet 12/12/19 25 025 Discontinued Active Problems Problem Noted Date Diagnosed Date History of coronary artery stent placement 11/08 Beta-thalassemia 05/11/2019 Erythrocytosis 05/08/2019 Spinal stenosis of cervical region 05/23/2016 Encounters Date Type Department Care Team Description 02/09/2025 Orders Only [facility] Medical Group Cardiology [address] [place] [address] Jude Villanueva MD 01/28/2025 Orders Only [facility] Medical [facility] Cardiology [address] [facility] [address] [place] [address] Jude Villanueva MD from Last 3 Months Surgical History Surgery [...] on file Legal Sex Female 7:45 PM SYSTEMS CHECKOUT MECHANIC Gender Identity Female 11/07/2020 6:15 AM CDT [...] Comments Blood Pressure 120/68 10/29/2023 3:12 PM SYSTEMS CHECKOUT MECHANIC Pulse 82 10/29/2023 3:12 PM SYSTEMS CHECKOUT MECHANIC Temperature 37.1 C (98.7 F) 05/11/2019 1:45 PM CDT Respiratory Rate 16 05/11/2019 1:45 PM CDT Oxygen Saturation 96% 10/29/2023 3:12 PM SYSTEMS CHECKOUT MECHANIC Inhaled Oxygen Concentration - - Weight 85 kg (187 lb 8 oz) 10/29/2023 3:12 PM CS T Height 163.8 cm (5' 4.5) 10/29/2023 3:12 PM SYSTEMS CHECKOUT MECHANIC Body Mass Index 31.69 10/29/2023 3:12 PM SYSTEMS CHECKOUT MECHANIC Plan of Treatment Health Maintenance Due Date [...] 01/21/2022, Additional history exists Influenza Vaccine (#1) 2025 , 07/15/2022, 06/28/2021, Additional history exists Insurance [facility] REF MEDICARE ADVANTAGE [facility]VANTAGE Care Teams Manager Filter Relationship Specialty Start Date End Date Sunny Bai MD [address] [place] [address] PCP - General Family Medicine 02/21/17 Franklin Sorensen MD [address] [place] [address] Medical Oncologist/[employer] [address] [employer] Hematology and Oncology 05/08/19
== END 2025-03-30 13:18 | disposition home or self-care (01) ==
PROVIDERS: PCP Family Medicine; Visit Provider Podiatrist Foot & Ankle Surgery
DX: I73.9 Peripheral vascular disease, unspecified (principal)
CPT/HCPCS: 93923

== ENCOUNTER 2025-07-02 15:45 | Outpatient (RCR) | payer MEDICARE, SELFPAY ==
--- NOTE | 2025-05-04 14:30 | OPREHPOC ---
Outpatient Therapy Plan of Care This is a Multidisciplinary Plan of Care that may contain components documented by all disciplines (PT, OT, and ST.) PT Problem 1 PT Problem #1 Knowledge Deficit PT Goal 1 Goal / Goal Update *independent with HEP Target Visit 10 PT Problem 2 PT Problem #2 Pain PT Goal 1 Goal / Goal Update 1* pt report pain rating at worst of 8/10 2* pt report standing/walking tolerance of 15 minutes Target Visit 10 PT Problem 3 PT Problem #3 Impaired Strength PT Goal 1 Goal / Goal Update * increase strength of trunk and hips: 1* gross strength of 4+/5 2* pt able to stand with hips at 0' extension x 60 seconds 3* sit/stand transfer with use of 1 UE x 5 reps Target Visit 10 PT Problem 4 PT Problem #4 Impaired Functional Mobility PT Goal 1 Goal / Goal Update 1* 2 minute walking test distance of 325' with wheeled walker 2* Tinetti balance/gait score of 23/28 3* 5 reps sit/stand time of 16 seconds Target Visit 10
--- NOTE | 2025-05-04 14:30 | PTOPEVAL1 ---
Assessment and note entered by Nanda Romero, PT Evaluation Information Assessment Status Evaluation ICD-10 Condition Codes (PT) Pain in low back M54.50,Radiculopathy, lumbar region M54.16,Difficulty Walking R26.2, Abnormalities of gait and mobility R26.9,Weakness R53.1 Onset February 2025 Subjective Information gradual increase pain, no trauma or injury to back ; had non invasive procedure in October for 3 lumbar levels, helped a little, but then pain got worse; had prednisone pack from primary awaiting insurance for MILD in lumbar spine; following with pain management, cardiology, ortho for knee pain and injections regularly, 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 goal: be able to stand up straight, get stronger, walk better and be able to walk more; Reported Pain Level Pain Score 8: Self Report Additional Pain Score Comments low back, radicular into R LE intermittent to mid -calf/ L LE intermittent to mid calf pain range in the past week 4-10/10 increase pain: any activity, clean out cat litter boxes; standing/walking home activity 10 minutes decrease pain: ice, muscle cream, prescription med -oxycodone 3x/day report with sleeping: usually OK, can sleep through night Assessment PT Clinical Summary Karen has the diagnosis of chronic back pain and stenosis. She is under the care of pain management and is awaiting insurance authorization for MILD. She lives alone and has assistance at home with home tasks and uses a wheeled walker for mobility. She is currently under the care of french edge operator, ortho- for knee injections, pain management and composition weatherboard installer-- to have toe nails removed next week and test results of abnormal NGHIA- may have referral to vascular . Medical history includes: fibromyalgia, HTN, COPD, knee pain, chronic pain. With the evaluation: poor standing posture with trunk flexion and lateral bend to L; Back index self rating of 70% limitation in activity level; 5 reps sit/stand time of 20 seconds with use of both UE's; 2 minute walking test distance of 250' with wheeled walker; Tinetti balance/gait score of 16/28; weakness of trunk and LE's, with limited testing due to not able to lie on mat due to increase pain. Skilled PT services are indicated for modalities to decrease pain; therapeutic exercises on land and in the water, to improve strength and mobility skills, with education for HEP, pain management and safety techniques. Plan of Care Interventions Aquatic Therapy,Electrical Stimulation,Gait Training,Hot Pack/Cold Pack,Manual Therapy, Mechanical Traction,Neuro Re-education,Patient/ Caregiver Education,Therapeutic Activities, Therapeutic Exercise,Ultrasound,Other Other Interventions taping PT Services Indicated Yes Treatment Frequency and 1-2x/wk for 10 visits Duration These treatments will address the objective and functional deficits as defined above. The patient will be advanced safely and appropriately in order for the patient to progress towards his/her prior level of function. Additional exercises will be introduced and as well as a comprehensive home exercise program upon discharge, if needed, ?to ensure carryover of functional gains achieved in the clinic. This treatment plan has been reviewed and agreement upon by the patient.
--- NOTE | 2025-05-04 15:49 | PCPTNOTE ---
pt was 10 minutes late for today's evaluation appt.
--- NOTE | 2025-06-29 14:26 | PCPTNOTE ---
Patient called & cancelled scheduled appointment this date
== END 2025-08-02 23:59 | disposition home or self-care (01) ==
LOC: ANHPT 15:45
PROVIDERS: PCP Family Medicine; Visit Provider Anesthesiology Pain Medicine
DX: M48.062 Spinal stenosis, lumbar region with neurogenic claudication (principal); M54.51 Vertebrogenic low back pain; M54.17 Radiculopathy, lumbosacral region; M43.16 Spondylolisthesis, lumbar region; M54.9 Dorsalgia, unspecified
CPT/HCPCS: 97110; 97140; 97162; 97530

== ENCOUNTER 2025-08-09 15:00 | Outpatient (CLI) | payer MEDICARE, SELFPAY ==
--- NOTE | ~2025-08-09 | CT_ITS ---
EXAMINATION:CT lung screening DATE: 08/09/2025 15:26 INDICATION: Screening TECHNIQUE: Computed tomography (CT) of the chest was performed without intravenous contrast. The dose-length product (DLP) was 152.99 mGy-cm. COMPARISON: 05/06/2024 FINDINGS: Minimal fibrotic and atelectatic changes in the right lung base mildly improved from the previous study. No suspicious lung nodules or masses. Heart and great vessels stable. Coronary artery calcifications noted. No lymphadenopathy seen. Airways appear open. No acute process seen in the visualized portions of the upper abdomen, bony thorax or extrathoracic soft tissues. Moderately severe degenerative changes throughout the thoracic spine. IMPRESSION: 1. No suspicious lung nodule or mass. Lung RADS 2. Correlate with follow-up low- dose lung cancer screening chest CT in 12 months. 2. Other chronic appearing findings as above. Reviewed, dictated and finalized at location A. F MAINTENANCE SUPERVISOR IMPRESSION: 1. No suspicious lung nodule or mass. Lung RADS 2. Correlate with follow-up low -dose lung cancer screening chest CT in 12 months. 2. Other chronic appearing findings as above.
--- OUTSIDE RECORDS SUMMARY | 2025-08-09 17:23 | XMS_ITS | Clinical Summary ---
Author Organization [facility] [employer] Address [address] [place] [address] Care Team Providers Care Branch Office Administrator Name Role Phone Sunny Bai MD Primary Care Provider Source Comments [facility],non-owned Affiliates and Associated Physician Practices is amultiple site organization consisting of ambulatory clinics and hospital sitesin [place], [place], [place] and [place]. This disclosure is being madepursuant to the Care Everywhere program and may not contain all information available regarding this patient. Last updated 18.[facility] Allergies Active Allergy Reactions Criticality Noted Date [...] 2003 ZOSTER VACCINE (1 of 2) 2003 DEPRESSION SCREENING 08/26/2024 MEDICARE AWV CALENDAR YEAR 2024 COVID-19 VACCINE (1 - 2024-2 6 season) 2025 INFLUENZA VACCINE (#1) 2025 06/01/2020 Respiratory Syncytial [...] complete this topic Insurance [place] [address] Care Teams Branch Office Administrator Relationship Specialty Start Date End Date Sunny Bai MD [address] [place] [address] PCP - General Family Medicine 06/19/24
--- OUTSIDE RECORDS SUMMARY | 2025-08-09 17:23 | XMS_ITS | Clinical Summary ---
Author Organization [facility] [address] Address [address] [place] [address] Phone Care Team Providers Care Aircraft Systems Repairer Name Role Phone Sunny Bai MD Primary Care Provider Franklin Sorensen MD Unavailable [phone] Allergies Active Allergy Reactions Criticality Noted Date Comments Erythromycin Vomiting Low Haloperidol Other (See comments) Low 11/30/2021 Penicillins Rash Medium 05/11/2019 Medications cyclobenzaprine (FLEXERIL) [...] pain 25 tablet 2 11/25/19 24 Active oxyCODONE-acetamino phen (PERCOCET) 5-325 mg per tablet TAKE 1 TABLET BY MOUTH EVERY 6-8 HOURS NEEDED FOR PAIN MAXIMUM DAILY DOSE IS 3 TABLETS 05/21/20 25 Active griseofulvin (CHERYL-PEG) 250 mg tablet Take 1 tablet (250 mg total) by mouth daily 02/24/20 25 Active rosuvastatin (CRESTOR) 10 mg tabletIndications: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 TAKE 1 TABLET BY MOUTH DAILY 90 tablet 3 07/05/20 25 Active metoprolol XL (TOPROL-XL) 50 mg extended release tabletIndications: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 TAKE 1 TABLET BY MOUTH DAILY 100 tablet 3 07/29/20 25 Active metoprolol XL (TOPROL-XL) 50 mg extended release tabletIndications: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 TAKE 1 TABLET BY MOUTH DAILY 100 tablet 2 11/17/19 25 025 Discontinued Active Problems Problem Noted Date Diagnosed Date History of coronary artery stent placement 11/08 Beta-thalassemia 05/11/2019 Erythrocytosis 05/08/2019 Spinal stenosis of cervical region 05/23/2016 Encounters Date Type Department Care Team Description 06/14/2025 1:30 PM CDT Office Visit [facility] at [address] [place] [address] Mookie Hugo MD History of coronary artery stent placement (Primary Dx) from Last 3 Months Surgical History Surgery [...] on file Legal 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 Gender Identity Female 11/07/2020 6:15 AM CDT [...] Sign Reading Time Taken Comments Blood Pressure 132/78 06/14/2025 1:33 PM CDT Pulse 72 06/14/2025 1:33 PM CDT Temperature 37.1 C (98.7 F) 05/11/2019 1:45 PM CDT Respiratory Rate 16 05/11/2019 1:45 PM CDT Oxygen Saturation 99% 06/14/2025 1:33 PM CDT Inhaled Oxygen Concentration - - Weight 82.1 kg (180 lb 14.4 oz) 06/14/2025 1:33 PM CDT Height 163.8 cm (5' 4.5) 06/14/2025 1:33 PM CDT Body Mass Index 30.57 06/14/2025 1:33 PM CDT Plan of Treatment Health Maintenance [...] Visit 65+ 03/17/2019 03/17/2018, 02/21/2017 Covid-19 Vaccine (2024-2 6 season) 2025 06/09/2023, 07/15/2022, 01/21/2022, Additional history exists Influenza Vaccine (#1) 2025 3, 07/15/2022, 06/28/2021, Additional history exists Insurance [facility] [id number] [place], [place] [id number] HMO REF UHC MEDICARE ADVANTAGE [facility] MEDICARE ADVANTAGE Care Teams Aircraft Systems Repairer Relationship Specialty Start Date End Date Sunny Bai MD [address] [facility] [place] [address] PCP - General Family Medicine 02/21/17 Franklin Sorensen MD [address] [facility] [place] [address] Medical Oncologist/Mechanical Detailer Hematology and Oncology 05/08/19
--- OUTSIDE RECORDS SUMMARY | 2025-08-09 17:23 | XMS_ITS | Patient Health Record ---
Author Organization [facility] [employer] Address [address] [facility] [address] [place] [address] Care Team Providers Care Well Shooter Name Role Phone Geoffrey Vu Unavailable [phone] Reason For Referral No Information Medications Medication SIG (Take, Route, Frequency, Duration) Notes Start Date End Date Status Chlorthalidone 25 MG Tablet Oral Active traZODone HCl 50 MG Tablet Oral Active Simvastatin 5 MG Tablet Oral Active Cyclobenzaprine HCl 10 MG Tablet Oral Active DULoxetine HCl 60 MG Capsule Delayed Release Particles Oral Ac tive Benazepril HCl 20 MG Tablet Oral Active Montelukast Sodium 10 MG Tablet Oral Active DULoxetine HCl 30 MG Capsule Delayed Release Particles Oral Ac tive amLODIPine Besylate 5 MG Tablet Oral Active Plan Of Treatment No Information
--- OUTSIDE RECORDS SUMMARY | 2025-08-09 17:23 | XMS_ITS | Clinical Summary ---
Author Organization [facility] Address [address] [facility] [place] [address] Phone Care Team Providers Care Gauger Chief Delivery Name Role Phone Maranda Forbes MD Primary Care Provider [phone] Allergies No known active allergies Medications fluticasone-digna [...] Take 50 mg by mouth nightly. Active Maskell-3 Fatty Acids (FISH OIL PO) Take by [...] (1 of 2) 2003 Influenza Immunization (#1) 2025 SARS-COV-2 Immunization ( - season) 2025 Respiratory Syncytial Virus (RSV) Immunization (Adult) [...] age to complete this topic Care Teams Gauger Chief Delivery Relationship Specialty Start Date End Date Maranda Forbes MD [address] [place] [id number] PCP - General Family Medicine 03/14/16
== END 2025-08-09 15:01 | disposition home or self-care (01) ==
PROVIDERS: PCP Family Medicine; Visit Provider Physician Assistant
DX: Z12.2 Encounter for screening for malignant neoplasm of respiratory organs (principal); F17.210 Nicotine dependence, cigarettes, uncomplicated
CPT/HCPCS: 71271